=== PATIENT | female | born 1975 | race Caucasian/White ===

== ENCOUNTER 2016-08-22 12:16 | Emergency (ER) | payer MEDICAID ==
[2016-08-22 12:22] VITALS: BP 145/85
--- NOTE | 2016-08-22 12:24 | ER Document Report ---
ED Medical Screen (RME) - General Stated Complaint: LEG PAIN Notes: Patient is a 40-year-old female presents emergency Department complaining of pain in her calf on the right side that radiates to her right hip that started last night. H/o PE, on Coumadin 5mg. Patient states she had a DVT that progressed to be a PE in 2005 in the [facility]. Describing it as a constant jazmín horse. Denies SOB I have greeted and performed a rapid initial assessment of this patient. A comprehensive ED assessment and evaluation of the patient, analysis of test results and completion of the medical decision making process will be conducted by additional ED providers. TRAVEL OUTSIDE OF THE [place] IN LAST 30 DAYS: No - Related Data Allergies/Adverse Reactions: codeine [Codeine] Allergy (Verified 12/23/13 02:16) levofloxacin [From Levaquin] Allergy (Verified 12/23/13 02:16) Urticaria seafood Allergy (Uncoded 12/23/13 02:16) Past Medical History - Social History Family history: Arthritis, CAD, CVA, DM, Hyperlipidemia, Hypertension, Malignancy, Thyroid Disfunction - Past Medical History Cardiac Medical History: Reports: Hx DVT, Hx Hypertension, Hx Pulmonary Embolism Neurological Medical History: Reports: Hx Migraine Endocrine Medical History: Reports: Hx Diabetes Mellitus Type 2 Skin Medical History: Reports Hx Cellulitis, Denies Hx MRSA Psychiatric Medical History: Reports: Hx Depression Past Surgical History: Reports: Hx Cholecystectomy, Hx Genitourinary Surgery - Esure - Immunizations Immunizations up to date: No Hx Diphtheria, Pertussis, Tetanus Vaccination: No
[2016-08-22 13:01] LABS: PROTHROMBIN TIME 12.1 SEC (11.4-15.4)
[2016-08-22] MEDS ORDERED: ACETAMINOPHEN 325 MG TABLET PO ONE (13:23)
[2016-08-22] MEDS ORDERED: MORPHINE SULFATE 10 MG/ML INJ IV ONE (13:40)
[2016-08-22] MEDS ORDERED: ENOXAPARIN SODIUM INJ 120 MG/0.8 ML DISP.SYRIN SUBCUT SCH (16:00)
--- NOTE | 2016-08-22 16:00 | ER Document Report ---
ED General - General Chief Complaint: Leg Pain Stated Complaint: LEG PAIN Time seen by provider: 13:00 Mode of Arrival: Ambulatory Information source: Patient Notes: 40-year-old female who complains about pain to the posterior right calf and thigh while standing last night. She reports a history DVT in that extremity approximately 10 years ago with associated pulmonary embolism is been on Coumadin ever since. He reports this is adjusted at [facility] and she has no other local physician. She reports last INR check was about one month ago. She denies any history of recent travel or immobilization. She denies any injury to this extremity. She denies fever, chills, nausea, vomiting, cough, shortness of breath, chest pain, abdominal pain, or back pain. Physical Exam: General: Alert, appears well. HEENT: Normocephalic. Atraumatic. PERRLA. Extraocular movements intact. Oropharynx clear. Neck: Supple. Non-tender. Respiratory: No respiratory distress. Clear and equal breath sounds bilaterally. Cardiovascular: Regular rate and rhythm. Abdominal: Normal Inspection. Soft, non-tender. No distension. Normal Bowel Sounds. Back: Non-tender. No deformity or step off. Right lower extremity is tender to palpation in the posterior calf and behind the knee no palpable cords are present. There is no bruising or discoloration. She has 2+ dorsalis pedis and posterior tibial pulses. Posterior thigh is only minimally tender to palpation. Left lower extremity unremarkable Neurological: The clear mentation normal Psychological: Normal affect. Normal Mood. Skin: Warm. Dry. Normal color. TRAVEL OUTSIDE OF THE [place] IN LAST 30 DAYS: No - Related Data Allergies/Adverse Reactions: codeine [Codeine] Allergy (Verified 08/22/16 12:19) levofloxacin [From Levaquin] Allergy (Verified 08/22/16 12:19) Urticaria seafood Allergy (Uncoded 08/22/16 12:19) Past Medical History - Social History Smoking Status: Current Every Day Smoker Chew tobacco use (# tins/day): No Frequency of alcohol use: None Drug Abuse: None Family History: Hypertension, Malignancy Patient has suicidal ideation: No Patient has homicidal ideation: No - Past Medical History Cardiac Medical History: Reports: Hx DVT, Hx Hypertension, Hx Pulmonary Embolism Neurological Medical History: Reports: Hx Migraine Endocrine Medical History: Reports: Hx Diabetes Mellitus Type 2 Renal/ Medical History: Denies: Hx Peritoneal Dialysis Skin Medical History: Reports Hx Cellulitis, Denies Hx MRSA Psychiatric Medical History: Reports: Hx Depression Past Surgical History: Reports: Hx Cholecystectomy, Hx Genitourinary Surgery - Esure, Hx Vascular Surgery - PE - Immunizations Immunizations up to date: No Hx Diphtheria, Pertussis, Tetanus Vaccination: No Review of Systems - Review of Systems Constitutional: denies: Chills, Fever EENT: denies: Ear pain, Throat pain Cardiovascular: denies: Chest pain, Dyspnea, Syncope Respiratory: denies: Cough, Short of breath Gastrointestinal: denies: Abdominal pain, Diarrhea, Nausea, Vomiting, Blood in vomit, Black stools, Rectal bleeding Genitourinary: denies: Burning, Dysuria Female Genitourinary: No symptoms reported Musculoskeletal: denies: Back pain Skin: See HPI Hematologic/Lymphatic: See HPI Neurological/Psychological: denies: Weakness, Numbness Physical Exam - Vital signs Vitals: Temp Pulse Resp BP Pulse Ox 98.2 F 99 20 145/85 H 95 08/22/16 12:21 08/22/16 12:21 08/22/16 12:21 08/22/16 12:21 08/22/16 12:21 - Extremities Left calf in cm: 38 Right calf in cm: 39 Course - Re-evaluation Re-evalutation: 08/22/16 15:58 Patient's Doppler studies negative for DVT but she is subtherapeutic on her INR. I discussed with her various options for anticoagulation and recommended stopping Coumadin and beginning Xarelto instead and she is in agreement 08/22/16 16:05 - Vital Signs Vital signs: Temp Pulse Resp BP Pulse Ox 98.2 F 99 20 145/85 H 95 08/22/16 12:21 08/22/16 12:21 08/22/16 12:21 08/22/16 12:21 08/22/16 12:21 08/22/16 15:58 INR subtherapeutic - Diagnostic Test Radiology reviewed: Reports reviewed Discharge - Discharge Clinical Impression: History of DVT (deep vein thrombosis) Calf pain Qualifiers: Laterality: right Qualified Code(s): M79.661 - Pain in right lower leg Condition: Stable Disposition: HOME, SELF-CARE Additional Instructions: DVT Outpatient Treatment DVT or phlebitis is blood clots within the large deep veins. This causes redness, warmth, and tenderness of the involved area. This problem is more likely to affect people who smoke, take estrogen, have had recent surgery, have been immobile, have had previous DVT, or who have serious underlying health conditions. Keep your legs elevated. A heating pad, 20 minutes every two hours, can help with leg pain. For now, keep walking to a minimum. Don't do any physical work, lifting, or exercise. If the doctor has recommended medication for you, it 's important that you take it. You will be started on a blood-thinning medication. Follow-up is important. Your medication needs to be monitored. Call or return at once if you cough blood or vomit blood, pass black or bloody stool, or have any other unusual bleeding. DVT can cause serious complications. The clots can damage the valves in the veins, leading to chronic pain and swelling. If a clot breaks loose and floats upstream, it can stick in the lungs. A clot in the lungs, called pulmonary embolism, can be life-threatening. Call the doctor or return if you develop increasing leg pain and swelling, leg discoloration, fever, chest pain, or shortness of breath. Stopped taking Coumadin. Take Xarelto 15 mg twice a day for 3 weeks and then begin Xarelto 20 mg once a day instead You' still need to follow-up with your doctor for recheck in one week Prescriptions: Rivaroxaban [Xarelto] 20 mg PO QAM #30 tablet Rivaroxaban [Xarelto 15 mg Tablet] 15 mg PO BID #42 tablet Referrals: MINA FOSS NP [Primary Care Provider] - Follow up in 3-5 days
[2016-08-22] MEDS ORDERED: TRAMADOL HCL 50 MG TABLET PO ONE (16:09)
[2016-08-22] MEDS ORDERED: RIVAROXABAN 15 MG TABLET PO ONE (16:09)
== END 2016-08-22 16:15 | disposition home or self-care (01) ==
LOC: ER 12:16
DX: M79.661 Pain in right lower leg (principal); M79.651 Pain in right thigh; E11.9 Type 2 diabetes mellitus without complications; I10 Essential (primary) hypertension; F17.200 Nicotine dependence, unspecified, uncomplicated; Z86.718 Personal history of other venous thrombosis and embolism; Z86.711 Personal history of pulmonary embolism; Z79.01 Long term (current) use of anticoagulants; Z88.5 Allergy status to narcotic agent; Z88.1 Allergy status to other antibiotic agents; Z91.013 Allergy to seafood; Z86.14 Personal history of Methicillin resistant Staphylococcus aureus infection
CPT/HCPCS: 99284; 96374; 36415; 85610; 93971; J2270

== ENCOUNTER → 2017-05-30 | Outpatient (CLI) | payer MEDICAID ==
--- NOTE | 2017-05-30 15:34 | RADIOLOGY REPORT (SQ) ---
EXAM DESCRIPTION: MRI CERVICAL SPINE WITHOUT COMPLETED DATE/TIME: 05/30/2017 2:17 pm REASON FOR STUDY: OTHER CERVICAL DISC DEGENERATION, UNSPEC CERVICAL REGION (M50.30) M50.30 OTHER CE RVICAL DISC DEGENERATION, UNSP CERVICAL REGIO COMPARISON: None. TECHNIQUE: Sagittal and Axial imaging includes T1, T2, STIR and gradient echo sequences. LIMITATIONS: None. FINDINGS: ALIGNMENT: Normal. VERTEBRAE: Intact. BONE MARROW: Normal. No marrow replacement or reactive changes. DISCS: Mild multilevel disc space narrowing. Detailed levels below. HARDWARE: None in the spine. CORD AND BASE OF BRAIN: Normal in size and signal intensity. SOFT TISSUES: No soft tissue masses. C1-C2: No significant spinal stenosis. C2-C3: No significant spinal stenosis or exit foraminal stenosis. C3-C4: No significant spinal stenosis or exit foraminal stenosis. C4-C5: Minimal central protrusion without cord compression or significant central stenosis. Mild for aminal narrowing. C5-C6: Minimal protrusion without cord compression or significant central or foraminal narrowing. C6-C7: Minimal protrusion without evidence of cord compression or significant central or foraminal na rrowing. C7-T1: No significant spinal stenosis or exit foraminal stenosis. UPPER THORACIC: Incompletely imaged. No significant spinal stenosis or exit foraminal stenosis. OTHER: No other significant finding. IMPRESSION: 1. Mild multilevel disc disease but no suggestion of significant cord compression or spi nal stenosis. No spinal malalignment, fracture or bone lesion. TECHNICAL DOCUMENTATION: JOB ID: [id number] [employer]- All Rights Reserved
== END ==
LOC: RAD 13:38
PROVIDERS: ATTEND Physician Assistant
DX: M50.323 Other cervical disc degeneration at C6-C7 level (principal)
CPT/HCPCS: 72141

== ENCOUNTER 2017-07-30 22:01 | Emergency (ER) | payer MEDICAID ==
[2017-07-30] MEDS ORDERED: CEPHALEXIN 500 MG CAPSULE PO ONE (22:57)
[2017-07-30] MEDS ORDERED: LIDOCAINE 1% INJ-PF (10 MG/ML) 30 ML SDV INJ ONE (22:57)
[2017-07-30] MEDS ORDERED: OXYCODONE-ACETAMINOPHEN 5-325 MG TABLET PO ONE (22:57)
--- NOTE | 2017-07-30 22:58 | ER Document Report ---
HPI - HPI Pain Level: 3 Context: left hand lac, tetanus UTd withi one year on coumadiun 5mg last INR check was 1 month ago, prev Pe on Depo - REPRODUCTIVE Reproductive: DENIES: : Past Medical History - Social History Family History: Hypertension, Malignancy - Past Medical History Cardiac Medical History: Reports: Hx DVT, Hx Hypertension, Hx Pulmonary Embolism Neurological Medical History: Reports: Hx Migraine Endocrine Medical History: Reports: Hx Diabetes Mellitus Type 2 Renal/ Medical History: Denies: Hx Peritoneal Dialysis Skin Medical History: Reports Hx Cellulitis, Denies Hx MRSA Psychiatric Medical History: Reports: Hx Depression Past Surgical History: Reports: Hx Cholecystectomy, Hx Genitourinary Surgery - Esure, Hx Vascular Surgery - PE - Immunizations Immunizations up to date: No Hx Diphtheria, Pertussis, Tetanus Vaccination: No Vertical Provider Document - INFECTION CONTROL TRAVEL OUTSIDE OF THE [place] IN LAST 30 DAYS: No - RESPIRATORY O2 Sat by Pulse Oximetry: 98 Course - Vital Signs Vital signs: Temp Pulse Resp BP Pulse Ox 98.3 F 105 H 14 151/103 H 98 07/30/17 22:27 07/30/17 22:27 07/30/17 22:27 07/30/17 22:27 07/30/17 22:27
[2017-07-30] MEDS ORDERED: LIDOCAINE 1%/EPINEPHRINE INJ 20 ML VIAL INJ ONE (23:18)
[2017-07-30] MEDS ORDERED: MIDAZOLAM 2 MG/2 ML INJ IM ONE (23:18)
[2017-07-30] MEDS ORDERED: LIDOCAINE 4%/TETRACAINE 0.5%/EPI 0.18% 5 ML TOPICAL SOLN TOP ONE (23:18)
--- NOTE | 2017-07-30 23:22 | ER Document Report ---
ED General - General Chief Complaint: Hand Injury Stated Complaint: HAND INJURY Time Seen by Provider: 07/30/17 22:54 Notes: Patient is a 41-year-old female with a past medical history of a pulmonary embolus, currently anticoagulated on warfarin who presents after sustaining a laceration to her left hand. Patient states that she was opening a can of food and sustained a flap type laceration over the thenar eminence of the left hand. She is right-hand dominant. She states that she applied direct pressure to the area which has controlled the bleeding. She does note a severe, constant, throbbing pain to the area. She states any movement of the hand worsens the pain. She has not tried anything to improve the pain. She denies any history of similar injury in the past. Her tetanus is up-to-date. TRAVEL OUTSIDE OF THE [place] IN LAST 30 DAYS: No - Related Data Allergies/Adverse Reactions: levofloxacin [From Levaquin] Allergy (Verified 08/22/16 12:19) Urticaria seafood Allergy (Uncoded 08/22/16 12:19) Past Medical History - General Information source: Patient - Social History Smoking Status: Current Every Day Smoker Frequency of alcohol use: None Drug Abuse: None Lives with: Family Family History: Hypertension, Malignancy - Past Medical History Cardiac Medical History: Reports: Hx DVT, Hx Hypertension, Hx Pulmonary Embolism Neurological Medical History: Reports: Hx Migraine Endocrine Medical History: Reports: Hx Diabetes Mellitus Type 2 Renal/ Medical History: Denies: Hx Peritoneal Dialysis Skin Medical History: Reports Hx Cellulitis, Denies Hx MRSA Psychiatric Medical History: Reports: Hx Depression Past Surgical History: Reports: Hx Cholecystectomy, Hx Genitourinary Surgery - Esure, Hx Vascular Surgery - PE - Immunizations Immunizations up to date: No Hx Diphtheria, Pertussis, Tetanus Vaccination: No Review of Systems - Review of Systems Notes: Constitutional: Negative for fever. Eyes: Negative for visual changes. ENT: Negative for facial injury Cardiovascular: Negative for chest injury. Respiratory: Negative for shortness of breath. Gastrointestinal: Negative for abdominal injury. Genitourinary: Negative for genital injury Musculoskeletal: Positive for left hand injury Skin: Positive for laceration/abrasions. Neurological: Negative for head injury. Physical Exam - Vital signs Vitals: Temp Pulse Resp BP Pulse Ox 98.3 F 105 H 14 151/103 H 98 07/30/17 22:27 07/30/17 22:27 07/30/17 22:27 07/30/17 22:27 07/30/17 22:27 Interpretation: Hypertensive, Tachycardic Notes: PHYSICAL EXAMINATION: GENERAL: Well-appearing, well-nourished and in no acute distress. HEAD: Atraumatic, normocephalic. EYES: sclera anicteric, conjunctiva are normal. ENT: Moist mucous membranes. NECK: Normal range of motion LUNGS: Normal work of breathing HEART: 2+ radial pulses bilaterally EXTREMITIES: Full flexion extension against resistance at the DIP, PIP and MCP of all digits of the left hand NEUROLOGICAL: RMU motor and sensory distribution is intact bilaterally. PSYCH: Moderately anxious SKIN: Warm, Dry, normal turgor, there is a 3 cm flap type laceration over the thenar eminence of the left hand Course - Re-evaluation Re-evalutation: 07/30/17 23:21 Patient presents with a flap type laceration to the thenar eminence of the left hand after clinic cutting it on a can. Tetanus is already up-to-date. Patient is on warfarin but the wound is hemostatic at time of assessment. Patient is extremely anxious regarding laceration repair so 2 mg of intramuscular midazolam was administered prior to repair. The wound was anesthetized, cleaned and closed without difficulty. RMU motor and sensory distribution and full flexion extension in all joint spaces of the left hand were intact. At this time will discharge with return precautions and follow-up recommendations. Verbal discharge instructions given a the bedside and opportunity for questions given. Medication warnings reviewed. Patient is in agreement with this plan and has verbalized understanding of return precautions and the need for primary care follow-up in the next 24-72 hours. - Vital Signs Vital signs: Temp Pulse Resp BP Pulse Ox 97.9 F 108 H 14 137/82 H 96 07/31/17 00:50 07/31/17 00:50 07/30/17 22:27 07/31/17 00:50 07/31/17 00:50 Procedures - Laceration/Wound Repair Left Hand Wound length (cm): 3 Wound's Depth, Shape: Flap Laceration pre-procedure: Sterile PPE donned Anesthetic type: 1% Lidocaine w/epi Volume Anesthetic (mLs): 1 Wound explored: Clean Irrigated w/ Saline (mLs): 300 Wound Debrided: Moderate Wound Repaired With: Sutures Suture Size/Type: 5:0 Number of Sutures: 3 Post-procedure wound care: Sterile dressing applied Post-procedure NV exam normal: Yes Complications: No Discharge - Discharge Clinical Impression: Laceration of left hand Qualifiers: Encounter type: initial encounter Foreign body presence: without foreign body Qualified Code(s): S61.412A - Laceration without foreign body of left hand, initial encounter Condition: Good Disposition: HOME, SELF-CARE Additional Instructions: Please return to your primary doctor, the ED, or an urgent care in 7 days for suture removal. Return immediately if you develop spreading redness around the wound, pus from the wound, worsening pain, or a fever of >100.4. Keep the area clean and dry. Wash gently with soap and water twice daily and cover with antibiotic ointment.
[2017-07-31 00:52] VITALS: BP 137/82
== END 2017-07-31 00:54 | disposition home or self-care (01) ==
LOC: ER 22:01
PROC: 0HQGXZZ Repair Left Hand Skin, External Approach (ICD-10-PCS; principal; 2017-07-30)
DX: S61.412A Laceration without foreign body of left hand, initial encounter (principal); Z86.711 Personal history of pulmonary embolism; Z79.01 Long term (current) use of anticoagulants; W26.8XXA Contact with other sharp object(s), not elsewhere classified, initial encounter; F17.200 Nicotine dependence, unspecified, uncomplicated; I10 Essential (primary) hypertension; E11.9 Type 2 diabetes mellitus without complications; Z90.49 Acquired absence of other specified parts of digestive tract
CPT/HCPCS: 99282; 12002; J3490 ×2; J2250

== ENCOUNTER → 2017-12-29 | Outpatient (CLI) | payer MEDICAID ==
--- NOTE | 2017-12-29 21:05 | RADIOLOGY REPORT (SQ) ---
EXAM DESCRIPTION: MRI CERVICAL SPINE WITHOUT COMPLETED DATE/TIME: 12/29/2017 8:38 pm REASON FOR STUDY: M50.30 OTHER CERVICAL DISC DEGENERATION, UNSP CERVICAL REGION M50.30 OTHER CERVIC AL DISC DEGENERATION, UNSP CERVICAL REGIO COMPARISON: 05/30/2017 TECHNIQUE: Sagittal and Axial imaging includes T1, T2, STIR and gradient echo sequences. LIMITATIONS: None. FINDINGS: ALIGNMENT: Reversal of normal cervical lordotic curve. VERTEBRAE: Intact. BONE MARROW: Normal. No marrow replacement or reactive changes. DISCS: Normal. No significant abnormal signal or loss of height. HARDWARE: None in the spine. CORD AND BASE OF BRAIN: Normal in size and signal intensity. SOFT TISSUES: No soft tissue masses. C1-C2: No significant spinal stenosis. C2-C3: No significant spinal stenosis or exit foraminal stenosis. C3-C4: No significant spinal stenosis or exit foraminal stenosis. C4-C5: No significant spinal stenosis or exit foraminal stenosis. Mild disc bulge. C5-C6: No significant spinal stenosis or exit foraminal stenosis. Mild disc bulge. C6-C7: No significant spinal stenosis or exit foraminal stenosis. Mild disc bulge. C7-T1: No significant spinal stenosis or exit foraminal stenosis. UPPER THORACIC: Incompletely imaged. No significant spinal stenosis or exit foraminal stenosis. OTHER: No other significant finding. IMPRESSION: No significant spinal stenosis or exit foraminal stenosis. TECHNICAL DOCUMENTATION: JOB ID: [id number] [employer]- All Rights Reserved Reading location - IP/workstation name: [email or web address]
== END ==
LOC: RAD 20:26
PROVIDERS: ATTEND Physician Assistant
DX: M50.30 Other cervical disc degeneration, unspecified cervical region (principal)
CPT/HCPCS: 72141

== ENCOUNTER → 2018-01-09 | Outpatient (CLI) | payer MEDICAID ==
--- NOTE | 2018-01-10 16:10 | RADIOLOGY REPORT (SQ) ---
EXAM DESCRIPTION: MRI LT UPPER JOINT WITHOUT COMPLETED DATE/TIME: 01/09/2018 9:27 pm REASON FOR STUDY: M54.2 CERVICALGIA M54.2 CERVICALGIA COMPARISON: None. TECHNIQUE: Left shoulder images acquired and stored on PACS. Multiplanar imaging to include fat sens itive sequences such as T1, water sensitive sequences such as FST2/STIR, cartilage sensitive sequence s such as FSPD/gradient-echo sequences. LIMITATIONS: None. FINDINGS: BONE MARROW AND CORTEX: No worrisome bone lesions or marrow replacement. No occult fractur es. JOINT OR BURSAL EFFUSION: No significant joint or bursal fluid. No suggestion of loose bodies. GLENO-HUMERAL ARTICULATION: Normal articulation. No subluxation. No cystic change. No osteophytes or cartilage loss. ACROMION AND AC JOINT: Mild dorsal overgrowth with slight marrow edema. No subacromial compromise evident. ROTATOR CUFF AND INTERVAL: No suggestion of significant cuff tear or tendinosis. No atrophy. LABRUM AND BICEPS LABRAL COMPLEX: No high-grade labral tear identified. Signal in the biceps ancho r suggests relatively low grade fraying. Biceps tendon intact. REMAINDER OF LABRUM AND IGHL : Intact. PERIARTICULAR AND ADJACENT SOFT TISSUES: No masses or abnormal nodes. OTHER: No other significant finding. IMPRESSION: 1. No significant cuff disease. 2. Suspect mild biceps anchor fraying. Biceps tendon i ntact. Higher grade slap lesion not suspected. 3. Mild AC arthropathy. TECHNICAL DOCUMENTATION: JOB ID: [id number] [employer]- All Rights Reserved Reading location - IP/workstation name: [email or web address]
== END ==
LOC: RAD 19:34
PROVIDERS: ATTEND Physician Assistant
DX: M54.2 Cervicalgia (principal)

== ENCOUNTER 2018-03-24 16:41 | Emergency (ER) | payer MEDICAID ==
--- NOTE | 2018-03-24 17:43 | ER Document Report ---
ED Medical Screen (RME) - General Chief Complaint: Breathing Difficulty Stated Complaint: BREATHING DIFFICULTY Time Seen by Provider: 03/24/18 17:33 TRAVEL OUTSIDE OF THE [place] IN LAST 30 DAYS: No - HPI Onset: Other - 42-year-old female presents for evaluation from a urgent care after recheck for bronchitis as she has had a persistent cough over the last several days which is now worsened. She endorses fevers at home to her subjective, as well as wheezing and shortness of breath. She does have a history of pulmonary emboli in the past, diabetes type 2, hypertension, hyperlipidemia, chronic pain. She does have a productive cough. She is continued to smoke during this illness as much as several cigarettes per day. - Related Data Allergies/Adverse Reactions: levofloxacin [From Levaquin] Allergy (Verified 08/22/16 12:19) Urticaria seafood Allergy (Uncoded 08/22/16 12:19) Past Medical History - Social History Family history: Arthritis, CAD, CVA, DM, Hyperlipidemia, Hypertension, Malignancy, Thyroid Disfunction - Past Medical History Cardiac Medical History: Reports: Hx DVT, Hx Hypertension, Hx Pulmonary Embolism Pulmonary Medical History: Reports: Hx Pneumonia Neurological Medical History: Reports: Hx Migraine Endocrine Medical History: Reports: Hx Diabetes Mellitus Type 2 Renal/ Medical History: Denies: Hx Peritoneal Dialysis Skin Medical History: Reports Hx Cellulitis, Denies Hx MRSA Psychiatric Medical History: Reports: Hx Depression Past Surgical History: Reports: Hx Cholecystectomy, Hx Genitourinary Surgery - Esure, Hx Vascular Surgery - PE - Immunizations Immunizations up to date: No Hx Diphtheria, Pertussis, Tetanus Vaccination: No Physical Exam - Vital signs Vitals: Temp Pulse Resp BP Pulse Ox 98.8 F 115 H 16 122/72 94 03/24/18 16:46 03/24/18 16:46 03/24/18 16:46 03/24/18 16:46 03/24/18 16:46 Course - Re-evaluation Re-evalutation: 03/24/18 17:43 I performed a rapid medical screening examination on this patient will defer further imaging, tests, disposition to next provider. Has a history of pulmonary embolus in the past, does have symptoms suggestive of possible underlying pneumonia atypical or otherwise. We will plan for initiation of workup including troponin chest x-ray CBC and CMP. Patient will undergo further investigation through emergency department. - Vital Signs Vital signs: Temp Pulse Resp BP Pulse Ox 98.8 F 115 H 16 122/72 94 03/24/18 16:46 03/24/18 16:46 03/24/18 16:46 03/24/18 16:46 03/24/18 16:46 Doctor's Discharge - Discharge Referrals: JANETTE PRESTON PA [Primary Care Provider] - Follow up as needed
[2018-03-24 18:23] LABS: ABSOLUTE BASOPHILS # (AUTO) 0.1 10^3/uL (0.0-0.2); ABSOLUTE LYMPHOCYTES (AUTO) 2.4 10^3/uL (0.5-4.7); ABSOLUTE MONOCYTES (AUTO) 0.5 10^3/uL (0.1-1.4); ABSOLUTE NEUT (AUTO) 15.4 10^3/uL (1.7-8.2); BASOPHILS % (AUTO) 0.7 % (0-2); HEMATOCRIT 39.7 % (36.0-47.0); HEMOGLOBIN 13.7 g/dL (12.0-15.5); MEAN CORPUSCULAR HEMOGLOBIN 31.7 pg (27.0-33.4); MEAN CORPUSCULAR HGB CONC 34.4 g/dL (32.0-36.0); MEAN CORPUSCULAR VOLUME 92 fl (80-97); MONOCYTES % (AUTO) 2.5 % (3-13); PLATELET COUNT 437 10^3/uL (150-450); RED CELL DISTRIBUTION WIDTH 14.6 % (11.5-14.0); SEGMENTED NEUTROPHILS % (AUTO) 83.8 % (42-78); TOTAL CELLS COUNTED % (AUTO) 100 %; WHITE BLOOD COUNT 18.3 10^3/uL (4.0-10.5)
[2018-03-24 18:32] LABS: PROTHROMBIN TIME 22.7 SEC (11.4-15.4)
--- NOTE | 2018-03-24 18:38 | RADIOLOGY REPORT (SQ) ---
EXAM DESCRIPTION: CHEST 2 VIEWS COMPLETED DATE/TIME: 03/24/2018 6:31 pm REASON FOR STUDY: concern for pneumonia COMPARISON: 08/13/2015 EXAM PARAMETERS: NUMBER OF VIEWS: two views TECHNIQUE: Digital Frontal and Lateral radiographic views of the chest acquired. RADIATION DOSE: NA LIMITATIONS: none FINDINGS: LUNGS AND PLEURA: No opacities, masses or pneumothorax. No pleural effusion. MEDIASTINUM AND HILAR STRUCTURES: No masses or contour abnormalities. HEART AND VASCULAR STRUCTURES: Heart normal size. No evidence for failure. BONES: No acute findings. HARDWARE: None in the chest. OTHER: No other significant finding. IMPRESSION: NO ACUTE RADIOGRAPHIC FINDING IN THE CHEST. TECHNICAL DOCUMENTATION: JOB ID: [id number] [employer]- All Rights Reserved Reading location - IP/workstation name: [email or web address]
[2018-03-24 18:40] LABS: ALANINE AMINOTRANSFERASE 25 U/L (9-52); ALBUMIN 3.7 g/dL (3.5-5.0); ALKALINE PHOSPHATASE 83 U/L (38-126); ANION GAP 15 (5-19); ASPARTATE AMINO TRANSFERASE 17 U/L (14-36); BILIRUBIN,DIRECT 0.3 mg/dL (0.0-0.4); BILIRUBIN,TOTAL 0.3 mg/dL (0.2-1.3); BLOOD UREA NITROGEN 14 mg/dL (7-20); CALCIUM 9.5 mg/dL (8.4-10.2); CARBON DIOXIDE 22 mmol/L (22-30); CHLORIDE 99 mmol/L (98-107); GLUCOSE 285 mg/dL (75-110); POTASSIUM 4.3 mmol/L (3.6-5.0); SODIUM 135.9 mmol/L (137-145); TOTAL PROTEIN 7.2 g/dL (6.3-8.2)
[2018-03-24] MEDS ORDERED: IPRATROPIUM/ALBUTEROL 0.5-2.5 MG/3 ML AMPUL NEB ONE ×2 (18:41→18:46)
[2018-03-24] MEDS ORDERED: NORMAL SALINE 1000 ML 1,000 ML IV ONE (18:41)
[2018-03-24] MEDS ORDERED: CEFTRIAXONE 1 GM/D5W RTU 1 GM/50 ML RTUPB IV ONE (18:43)
--- NOTE | 2018-03-24 18:45 | ER Document Report ---
ED General - General Chief Complaint: Breathing Difficulty Stated Complaint: BREATHING DIFFICULTY Time Seen by Provider: 03/24/18 17:33 Mode of Arrival: Ambulatory Information source: Patient Notes: 42-year-old female with hypertension, type 2 diabetes, depression, migraine headaches presents from urgent care with concern for pneumonia and significantly elevated glucose of 468. Patient states that for 1 week she has had a persistent productive cough. She admits to subjective fevers at home. Patient has associated chest discomfort and shortness of breath with coughing. Patient reports that she was recently diagnosed with a urinary tract infection and placed on Macrobid and prednisone for bronchitis. Patient denies nausea, vomiting, abdominal pain, back pain, dysuria, hematuria. Patient is currently on Coumadin for previous PE. TRAVEL OUTSIDE OF THE [place] IN LAST 30 DAYS: No - HPI Onset: Other Onset/Duration: Persistent Quality of pain: Achy, Burning Associated symptoms: Body/muscle aches, Chest pain, Productive cough, Fever, Shortness of breath. denies: Diarrhea, Nausea, Vomiting Exacerbated by: Walking, Coughing, Deep breathing Relieved by: Remaining still Similar symptoms previously: Yes Recently seen / treated by doctor: Yes - Related Data Allergies/Adverse Reactions: levofloxacin [From Levaquin] Allergy (Verified 08/22/16 12:19) Urticaria seafood Allergy (Uncoded 08/22/16 12:19) Past Medical History - General Information source: Patient - Social History Smoking Status: Current Every Day Smoker Cigarette use (# per day): Yes - 15 Smoking Education Provided: Yes - Smoking cessation counseling was provided for 4 minutes at the bedside Frequency of alcohol use: None Drug Abuse: None Lives with: Family Family History: Hypertension, Malignancy Patient has suicidal ideation: No Patient has homicidal ideation: No - Past Medical History Cardiac Medical History: Reports: Hx DVT, Hx Hypertension, Hx Pulmonary Embolism Pulmonary Medical History: Reports: Hx Pneumonia Neurological Medical History: Reports: Hx Migraine Endocrine Medical History: Reports: Hx Diabetes Mellitus Type 2 Renal/ Medical History: Denies: Hx Peritoneal Dialysis Skin Medical History: Reports Hx Cellulitis, Denies Hx MRSA Psychiatric Medical History: Reports: Hx Depression Past Surgical History: Reports: Hx Cholecystectomy, Hx Genitourinary Surgery - Esure, Hx Vascular Surgery - PE - Immunizations Immunizations up to date: No Hx Diphtheria, Pertussis, Tetanus Vaccination: No Review of Systems - Review of Systems Constitutional: Fever, Malaise EENT: denies: Blurred vision Cardiovascular: Chest pain - With coughing only Respiratory: Cough, Short of breath, Wheezing Gastrointestinal: denies: Abdominal pain, Diarrhea, Nausea Genitourinary: denies: Dysuria, Hematuria Female Genitourinary: No symptoms reported Musculoskeletal: denies: Back pain Skin: denies: Rash Hematologic/Lymphatic: No symptoms reported Neurological/Psychological: Headaches Physical Exam - Vital signs Vitals: Temp Pulse Resp BP Pulse Ox 98.8 F 115 H 16 122/72 94 03/24/18 16:46 03/24/18 16:46 03/24/18 16:46 03/24/18 16:46 03/24/18 16:46 Interpretation: Tachycardic - Notes Notes: PHYSICAL EXAMINATION: GENERAL: Obese, well-appearing, well-nourished and in no acute distress. HEAD: Atraumatic, normocephalic. EYES: Pupils equal round and reactive to light, extraocular movements intact, conjunctiva are normal. ENT: Nares patent, oropharynx clear without exudates. Moist mucous membranes. NECK: Normal range of motion, supple without lymphadenopathy LUNGS: Coarse breath sounds in the right lower lung field. No accessory muscle use. Patient is able to speak in full sentences. No hypoxia. No wheezes rales or rhonchi. HEART: Tachycardic, regular rhythm without murmurs ABDOMEN: Soft, nontender, nondistended abdomen. No guarding, no rebound. No masses appreciated. Female : deferred Musculoskeletal: Normal range of motion, no pitting or edema. No cyanosis. NEUROLOGICAL: Cranial nerves grossly intact. Normal speech, normal gait. Normal sensory, motor exams PSYCH: Normal mood, normal affect. SKIN: Warm, Dry, normal turgor, no rashes or lesions noted. Course - Re-evaluation Re-evalutation: Laboratory 03/24/18 03/24/18 03/24/18 18:00 18:00 18:00 WBC 18.3 H RBC 4.30 Hgb 13.7 Hct 39.7 MCV 92 MCH 31.7 MCHC 34.4 RDW 14.6 H Plt Count 437 Seg Neutrophils % 83.8 H Lymphocytes % 13.0 Monocytes % 2.5 L Eosinophils % 0.0 Basophils % 0.7 Absolute Neutrophils 15.4 H Absolute Lymphocytes 2.4 Absolute Monocytes 0.5 Absolute Eosinophils 0.0 Absolute Basophils 0.1 PT INR D-Dimer Sodium 135.9 L Potassium 4.3 Chloride 99 Carbon Dioxide 22 Anion Gap 15 BUN 14 Creatinine 0.62 Est GFR ( Amer) > 60 Est GFR (Non-Af Amer) > 60 Glucose 285 H POC Glucose Calcium 9.5 Total Bilirubin 0.3 Direct Bilirubin 0.3 Neonat Total Bilirubin Not Reportable Neonat Direct Bilirubin Not Reportable Neonat Indirect Bili Not Reportable AST 17 ALT 25 Alkaline Phosphatase 83 Troponin I < 0.012 Total Protein 7.2 Albumin 3.7 03/24/18 03/24/18 03/24/18 18:00 18:00 18:18 WBC RBC Hgb Hct MCV MCH MCHC RDW Plt Count Seg Neutrophils % Lymphocytes % Monocytes % Eosinophils % Basophils % Absolute Neutrophils Absolute Lymphocytes Absolute Monocytes Absolute Eosinophils Absolute Basophils PT 22.7 H INR 1.90 D-Dimer < 0.27 Sodium Potassium Chloride Carbon Dioxide Anion Gap BUN Creatinine Est GFR ( Amer) Est GFR (Non-Af Amer) Glucose POC Glucose 308 H Calcium Total Bilirubin Direct Bilirubin Neonat Total Bilirubin Neonat Direct Bilirubin Neonat Indirect Bili AST ALT Alkaline Phosphatase Troponin I Total Protein Albumin Chest X-Ray 03/24/18 17:41 IMPRESSION: NO ACUTE RADIOGRAPHIC FINDING IN THE CHEST. 03/25/18 02:18 42-year-old female with hypertension, type 2 diabetes, depression, migraine headaches presents from urgent care with concern for pneumonia and significantly elevated glucose of 468. Patient states that for 1 week she has had a persistent productive cough. She admits to subjective fevers at home. Patient has associated chest discomfort and shortness of breath with coughing. Patient reports that she was recently diagnosed with a urinary tract infection and placed on Macrobid and prednisone for bronchitis. Patient does have a leukocytosis likely secondary to her recent prednisone use. Chest x-ray is without evidence of pneumonia. CMP does show elevated glucose without evidence of DKA. D-dimer and cardiac enzymes within normal limits. Patient did receive breathing treatments, ceftriaxone, IV fluids. On reevaluation patient is resting comfortably and reports an improvement of her shortness of breath. Patient will be discharged home on doxycycline. Patient was evaluated and treated as appropriate for the patient's presenting symptoms and complaint, with consideration of any critical or life threatening conditions that may be associated with their obtained history and exam as noted above. All results were discussed with patient. Patient provided the opportunity to ask questions, and express concerns. Patient was educated on treatments based on their presumed diagnosis as noted above. At this time we will discharge the patient with return precautions and follow-up recommendations. Verbal discharge instructions given a the bedside. Medication warnings reviewed. Patient is in agreement with this plan and has verbalized understanding of return precautions. After careful consideration I feel that that patient can be safely discharged from the emergency department, they were advised to followup with a primary care physician in 2-3 days. Dictation on this chart was performed using voice recognition software and may result in unintended grammatical, spelling, syntax or errors. 03/25/18 02:24 03/25/18 02:25 - Vital Signs Vital signs: Temp Pulse Resp BP Pulse Ox 98.8 F 74 18 112/66 94 03/24/18 16:46 03/24/18 20:38 03/24/18 20:38 03/24/18 20:38 03/24/18 20:38 - Laboratory Result Diagrams: 03/24/18 18:00 03/24/18 18:00 Laboratory results interpreted by me: 03/24/18 03/24/18 03/24/18 18:00 18:00 18:00 WBC 18.3 H RDW 14.6 H Seg Neutrophils % 83.8 H Monocytes % 2.5 L Absolute Neutrophils 15.4 H PT 22.7 H Sodium 135.9 L Glucose 285 H POC Glucose 03/24/18 18:18 WBC RDW Seg Neutrophils % Monocytes % Absolute Neutrophils PT Sodium Glucose POC Glucose 308 H - Diagnostic Test Radiology reviewed: Image reviewed, Reports reviewed - EKG Interpretation by Me EKG shows normal: Sinus rhythm Rate: Tachycardia Rhythm: NSR When compared to previous EKG there are: Previous EKG unavailable Discharge - Discharge Clinical Impression: Bronchitis, Cough Hyperglycemia due to type 2 diabetes mellitus Qualifiers: Diabetes mellitus shelter insulin use: unspecified shelter insulin use status Qualified Code(s): E11.65 - Type 2 diabetes mellitus with hyperglycemia Condition: Good Disposition: HOME, SELF-CARE Instructions: Bronchitis ([facility]), Bronchitis With Bronchospasm (Wheezing) ([facility]), Control of Diabetes During Illness ([facility]), Hyperglycemia ([facility]) Additional Instructions: You were seen for symptoms most consistent with bronchitis. This can take up to 12 weeks to fully resolve. This is generally due to a viral infection. Please follow-up with your primary doctor in the next 2-3 days. Return if you develop worsening cough, vomiting, fever >100.4, pass out, begin coughing blood, or have any other symptoms that are concerning to you. Please use the medications prescribed today as directed. Prescriptions: Doxycycline Hyclate 100 mg PO BID #14 capsule Forms: Smoking Cessation Education Referrals: JANETTE PRESTON PA [Primary Care Provider] - Follow up as needed
--- NOTE | 2018-03-24 19:51 | EKG REPORT ---
SEVERITY:- OTHERWISE NORMAL ECG - SINUS TACHYCARDIA BORDERLINE LEFT AXIS DEVIATION : Confirmed by: Ivonne Mcdonnell MD 24-Mar-2018 19:51:07
[2018-03-24] MEDS ORDERED: DOXYCYCLINE HYCLATE 100 MG TABLET PO ONE (20:15)
[2018-03-24 20:40] VITALS: BP 112/66
== END 2018-03-24 20:38 | disposition home or self-care (01) ==
LOC: ER 16:41
DX: E11.65 Type 2 diabetes mellitus with hyperglycemia (principal); R05 Cough; J40 Bronchitis, not specified as acute or chronic; I10 Essential (primary) hypertension; R50.9 Fever, unspecified; R53.81 Other malaise; R07.89 Other chest pain; R06.02 Shortness of breath; R51 Headache; R00.0 Tachycardia, unspecified; D72.829 Elevated white blood cell count, unspecified; F17.210 Nicotine dependence, cigarettes, uncomplicated; Z71.6 Tobacco abuse counseling; Z88.1 Allergy status to other antibiotic agents; Z91.013 Allergy to seafood; Z87.01 Personal history of pneumonia (recurrent); Z86.718 Personal history of other venous thrombosis and embolism; Z86.711 Personal history of pulmonary embolism
CPT/HCPCS: 93005; 94640; 99285; 96361; 96365; 36415; 82962; 85025; 85610; 80053; 84484; 85379; 71046; 93010; J3490; J7030; J0696; J7620

== ENCOUNTER 2018-04-28 09:49 | Emergency (ER) | payer MEDICAID | END 2018-04-28 10:45 | disposition left against medical advice (07) | LOC: ER 09:49 | DX: Z53.21 Procedure and treatment not carried out due to patient leaving prior to being seen by health care provider (principal) ==

== ENCOUNTER 2018-04-28 12:06 | Emergency (ER) | payer MEDICAID ==
[2018-04-28] MEDS ORDERED: ASPIRIN 81 MG TABLET, CHEWABLE PO ONE (12:11)
[2018-04-28 12:32] LABS: ABSOLUTE BASOPHILS # (AUTO) 0.3 10^3/uL (0.0-0.2); ABSOLUTE EOSINOPHILS # (AUTO) 0.1 10^3/uL (0.0-0.6); ABSOLUTE LYMPHOCYTES (AUTO) 3.9 10^3/uL (0.5-4.7); ABSOLUTE MONOCYTES (AUTO) 0.5 10^3/uL (0.1-1.4); ABSOLUTE NEUT (AUTO) 11.8 10^3/uL (1.7-8.2); BASOPHILS % (AUTO) 1.6 % (0-2); EOSINOPHILS % (AUTO) 0.8 % (0-6); HEMATOCRIT 40.3 % (36.0-47.0); LYMPHOCYTES % (AUTO) 23.6 % (13-45); MEAN CORPUSCULAR HEMOGLOBIN 31.9 pg (27.0-33.4); MEAN CORPUSCULAR HGB CONC 34.7 g/dL (32.0-36.0); MEAN CORPUSCULAR VOLUME 92 fl (80-97); MONOCYTES % (AUTO) 3.3 % (3-13); PLATELET COUNT 381 10^3/uL (150-450); RED BLOOD COUNT 4.38 10^6/uL (3.72-5.28); RED CELL DISTRIBUTION WIDTH 14.1 % (11.5-14.0); SEGMENTED NEUTROPHILS % (AUTO) 70.7 % (42-78); TOTAL CELLS COUNTED % (AUTO) 100 %; WHITE BLOOD COUNT 16.7 10^3/uL (4.0-10.5)
--- NOTE | 2018-04-28 12:37 | RADIOLOGY REPORT (SQ) ---
EXAM DESCRIPTION: CHEST SINGLE VIEW COMPLETED DATE/TIME: 04/28/2018 12:28 pm REASON FOR STUDY: bed 8 cp COMPARISON: TWO-VIEW CHEST 03/24/2018 EXAM PARAMETERS: NUMBER OF VIEWS: One view. TECHNIQUE: Single frontal radiographic view of the chest acquired. RADIATION DOSE: NA LIMITATIONS: None. FINDINGS: LUNGS AND PLEURA: No opacities, masses or pneumothorax. No pleural effusion. MEDIASTINUM AND HILAR STRUCTURES: No masses. Contour normal. HEART AND VASCULAR STRUCTURES: Heart normal in size. Normal vasculature. BONES: No acute findings. HARDWARE: None in the chest. OTHER: No other significant finding. IMPRESSION: NO ACUTE RADIOGRAPHIC FINDING IN THE CHEST. TECHNICAL DOCUMENTATION: JOB ID: [id number] [employer]- All Rights Reserved Reading location - IP/workstation name: [email or web address]
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
[2018-04-28] MEDS ORDERED: MORPHINE SULFATE 10 MG/ML INJ IV ONE (12:45)
[2018-04-28 12:57] LABS: ALANINE AMINOTRANSFERASE 32 U/L (9-52); ALBUMIN 3.6 g/dL (3.5-5.0); ALKALINE PHOSPHATASE 91 U/L (38-126); ANION GAP 15 (5-19); ASPARTATE AMINO TRANSFERASE 28 U/L (14-36); BILIRUBIN,DIRECT 0.4 mg/dL (0.0-0.4); BILIRUBIN,TOTAL 0.4 mg/dL (0.2-1.3); BLOOD UREA NITROGEN 12 mg/dL (7-20); CALCIUM 9.4 mg/dL (8.4-10.2); CARBON DIOXIDE 20 mmol/L (22-30); CHLORIDE 100 mmol/L (98-107); CREATINE KINASE 59 U/L (30-135); GLUCOSE 205 mg/dL (75-110); POTASSIUM 4.5 mmol/L (3.6-5.0); SODIUM 135.1 mmol/L (137-145)
[2018-04-28 13:22] LABS: CREATINE KINASE MB 0.58 ng/mL (<4.55)
[2018-04-28 13:24] LABS: TROPONIN I < 0.012 ng/mL
[2018-04-28 13:37] LABS: INTERNATIONAL RATION (INR) 1.05; PROTHROMBIN TIME 14.3 SEC (11.4-15.4)
[2018-04-28 13:40] LABS: D-DIMER 0.36 ug/mL (0.00-0.50)
[2018-04-28 15:22] VITALS: BP 109/82
--- NOTE | 2018-04-28 15:32 | RADIOLOGY REPORT (SQ) ---
EXAM DESCRIPTION: VENOUS UNILATERAL UPPER COMPLETED DATE/TIME: 04/28/2018 3:10 pm REASON FOR STUDY: Lt UE pain, h/o DVT COMPARISON: 10/16/2014 TECHNIQUE: Dynamic and static delvlale scale and color images acquired of the left arm venous system. Se lected spectral images acquired with additional compression and augmentation maneuvers. The contralat eral subclavian vein and internal jugular vein were also imaged. Images stored on PACS. LIMITATIONS: None. FINDINGS: INTERNAL JUGULAR VEIN: Normal phasicity, compression, augmentation. No visualized echogeni c material on delvalle scale. No defects on color images. Comparison opposite side normal. SUBCLAVIAN VEIN: Normal compression, augmentation. No visualized echogenic material on delvalle scale. No defects on color images. AXILLARY VEIN: Normal compression, augmentation. No visualized echogenic material on delvalle scale. No d efects on color images. BRACHIAL VEIN: Normal compression, augmentation. No visualized echogenic material on delvalle scale. No d efects on color images. BASILIC VEIN: Normal compression, augmentation. No visualized echogenic material on delvalle scale. No de fects on color images. CEPHALIC VEIN: Normal compression, augmentation. No visualized echogenic material on delvalle scale. No d efects on color images. OTHER: No other significant finding. CONTRALATERAL SUBCLAVIAN VEIN AND INTERNAL JUGULAR VEIN: Normal phasicity, compression and augmentation. No visualized echogenic material on delvalle scale. No de fects on color images. IMPRESSION: NO EVIDENCE DVT OR SVT LEFT ARM. TECHNICAL DOCUMENTATION: JOB ID: [id number] [employer]- All Rights Reserved Reading location - IP/workstation name: [email or web address]
--- NOTE | 2018-04-29 07:13 | EKG REPORT ---
SEVERITY:- BORDERLINE ECG - SINUS TACHYCARDIA BORDERLINE LEFT AXIS DEVIATION BORDERLINE T WAVE ABNORMALITIES : Confirmed by: Andreia Weaver 29-Apr-2018 07:12:04
== END 2018-04-28 15:47 | disposition home or self-care (01) ==
LOC: ER 12:06
DX: G89.29 Other chronic pain (principal); M25.512 Pain in left shoulder; M79.632 Pain in left forearm; M79.642 Pain in left hand; I10 Essential (primary) hypertension; E11.9 Type 2 diabetes mellitus without complications; I26.99 Other pulmonary embolism without acute cor pulmonale; I82.409 Acute embolism and thrombosis of unspecified deep veins of unspecified lower extremity; Z79.01 Long term (current) use of anticoagulants; Z88.1 Allergy status to other antibiotic agents
CPT/HCPCS: 93005; 99284; 96374; 36415; 82553; 82550; 85025; 85610; 85730; 80053; 84484; 85379; 93971; 71045; 93010; J2270

== ENCOUNTER 2018-10-09 13:41 | Emergency (ER) | payer MEDICAID ==
[2018-10-09] MEDS ORDERED: HYDROCODONE/ACETAMINOPHEN 10-325 MG TABLET PO ONE (17:08)
[2018-10-09] MEDS ORDERED: PENICILLIN V POTASSIUM 500 MG TABLET PO ONE (17:08)
--- NOTE | 2018-10-09 17:12 | ER Document Report ---
HPI - HPI Patient complains to provider of: Tooth pain Time Seen by Provider: 10/09/18 16:55 Pain Level: 3 Context: Patient is a 42-year-old female presents to the emergency department for left upper tooth pain for the last 3 days. Patient states she feels as though her wisdom teeth are "pushing through." States she called her dentist who told her to come to the emergency room for need for antibiotics before any dental work to be done. Patient's denying any fever or vomiting. Past medical history: Diabetes, pulmonary embolus, hypertension, hyperlipidemia Medication: Xarelto Allergies: Seafood, levofloxacin - REPRODUCTIVE Reproductive: DENIES: : Past Medical History - General Information source: Patient - Social History Smoking Status: Current Every Day Smoker Family History: Hypertension, Malignancy Patient has suicidal ideation: No Patient has homicidal ideation: No - Past Medical History Cardiac Medical History: Reports: Hx DVT, Hx Hypertension, Hx Pulmonary Embolism Pulmonary Medical History: Reports: Hx Pneumonia Neurological Medical History: Reports: Hx Migraine Endocrine Medical History: Reports: Hx Diabetes Mellitus Type 2 Renal/ Medical History: Denies: Hx Peritoneal Dialysis Skin Medical History: Reports Hx Cellulitis, Denies Hx MRSA Psychiatric Medical History: Reports: Hx Depression Past Surgical History: Reports: Hx Cholecystectomy, Hx Genitourinary Surgery - Esure, Hx Vascular Surgery - PE - Immunizations Immunizations up to date: No Hx Diphtheria, Pertussis, Tetanus Vaccination: No Vertical Provider Document - CONSTITUTIONAL Agree With Documented VS: Yes Notes: GENERAL: Alert, interacts well. No acute distress. HEAD: Normocephalic, atraumatic. EYES: Pupils equal, round, and reactive to light. Extraocular movements intact. ENT: Oral mucosa moist, tongue midline. Tooth in question is #16. There does appear to be some minor gum erythema no area of fluctuance or induration noted. Obvious dental decay noted, other dentition within well repair. No Darío's angina NECK: Full range of motion. Supple. Trachea midline.no lymphadenopathy appreciated. LUNGS: Clear to auscultation bilaterally, no wheezes, rales, or rhonchi. No respiratory distress. HEART: Regular rate and rhythm. No murmur ABDOMEN: Soft, non-tender. Non-distended. Bowel sounds present in all 4 quadrants. EXTREMITIES: Moves all 4 extremities spontaneously. No edema, normal radial and dorsalis pedis pulses bilaterally. No cyanosis. BACK: no cervical, thoracic, lumbar midline tenderness. No saddle anesthesia, normal distal neurovascular exam. NEUROLOGICAL: Alert and oriented x3. Normal speech. cranial nerves II through XII grossly intact PSYCH: Normal affect, normal mood. SKIN: Warm, dry, normal turgor. No rashes or lesions noted. - INFECTION CONTROL TRAVEL OUTSIDE OF THE [place] IN LAST 30 DAYS: No Course - Re-evaluation Re-evalutation: 10/09/18 17:10 Discussed use of antibiotics and at home pain medication. Discussed continued close follow-up with the dentist. Patient stable for discharge This medical record was dictated with voice recognizing software. There may be grammatical, syntax errors that are unintended. - Vital Signs Vital signs: Temp Pulse Resp BP Pulse Ox 98.4 F 106 H 18 119/69 94 10/09/18 14:47 10/09/18 14:47 10/09/18 14:47 10/09/18 14:47 10/09/18 14:47 Discharge - Discharge Clinical Impression: Tooth decay, Toothache Condition: Stable Disposition: HOME, SELF-CARE Instructions: Penicillin V K ([facility]), Toothache ([facility]), [facility] Additional Instructions: As we discussed you have been seen and treated in the emergency department for tooth pain. Please make sure you are taking antibiotics as prescribed. Please take [id number] Tylenol Motrin for generalized pain. His follow-up with your dentist in the next 24 to 48 hours. Phone numbers for [facility] will be provided in this packet should you not have a dentist. Prescriptions: Penicillin V Potassium [Penicillin Vk 500 mg Tablet] 500 mg PO BID #20 tablet Referrals: NATALIE NG FNP-C [Primary Care Provider] - Follow up as needed
[2018-10-09 17:33] VITALS: BP 133/78
== END 2018-10-09 17:33 | disposition home or self-care (01) ==
LOC: ER 13:41
DX: K02.9 Dental caries, unspecified (principal); K08.89 Other specified disorders of teeth and supporting structures; F17.200 Nicotine dependence, unspecified, uncomplicated; I10 Essential (primary) hypertension; E11.9 Type 2 diabetes mellitus without complications
CPT/HCPCS: 99282; J3490

== ENCOUNTER 2018-11-30 20:49 | Emergency (ER) | payer MEDICAID | END 2018-11-30 21:26 | disposition left against medical advice (07) | LOC: ER 20:49 | DX: Z53.21 Procedure and treatment not carried out due to patient leaving prior to being seen by health care provider (principal) ==

== ENCOUNTER 2018-11-30 22:26 | Emergency (ER) | payer MEDICAID ==
[2018-11-30 22:36] VITALS: BP 124/75
--- NOTE | 2018-12-01 00:08 | ER Document Report ---
ED Medical Screen (RME) - General Chief Complaint: High Blood Sugar Stated Complaint: BLOOD SUGAR PROBLEM Time Seen by Provider: 12/01/18 00:04 Primary Care Provider: NATALIE NG FNP-C [Primary Care Provider] - Follow up as needed Mode of Arrival: Ambulatory Information source: Patient Notes: 42-year-old male presented to ED for complaint of elevated blood sugar. She has diabetes type 2 and is on multiple diabetic medications. She states she is been taking her medications as prescribed and has not eaten all day and is only been drinking water. She states she just took her Accu-Chek with her machine and it was 347. She states she does not feel right. She states that she has had to get IV fluids and insulin drip before when her sugar was too high after her primary care doctor gave her steroids. She states she has not been on any steroids recently. She states her urine has a very strong odor and she is been tired. She states she does not have any pain or discomfort with urination but she does have low back pain. Patient is alert oriented respirations regular and unlabored speaking in full sentences walking with a even steady gait. Accu-Chek in the emergency room is 350. I have greeted and performed a rapid initial assessment of this patient. A comprehensive ED assessment and evaluation of the patient, analysis of test results and completion of medical decision making process will be conducted by an additional ED providers. Dictation of this chart was performed using voice recognition software; therefore, there may be some unintended grammatical errors. TRAVEL OUTSIDE OF THE [place] IN LAST 30 DAYS: No - Related Data Allergies/Adverse Reactions: levofloxacin [From Levaquin] Allergy (Verified 10/09/18 13:46) Urticaria seafood Allergy (Uncoded 10/09/18 13:46) Past Medical History - Social History Chew tobacco use (# tins/day): No Frequency of alcohol use: None Drug Abuse: None Family history: Arthritis, CAD, CVA, DM, Hyperlipidemia, Hypertension, Malignancy, Thyroid Disfunction - Past Medical History Cardiac Medical History: Reports: Hx DVT, Hx Hypertension, Hx Pulmonary Embolism Pulmonary Medical History: Reports: Hx Pneumonia Neurological Medical History: Reports: Hx Migraine Endocrine Medical History: Reports: Hx Diabetes Mellitus Type 2 Renal/ Medical History: Denies: Hx Peritoneal Dialysis Skin Medical History: Reports Hx Cellulitis, Denies Hx MRSA Psychiatric Medical History: Reports: Hx Depression Past Surgical History: Reports: Hx Cholecystectomy, Hx Genitourinary Surgery - E sure, Hx Vascular Surgery - PE - Immunizations Immunizations up to date: No Hx Diphtheria, Pertussis, Tetanus Vaccination: No Physical Exam - Vital signs Vitals: Temp Pulse Resp BP Pulse Ox 98.0 F 118 H 16 124/75 96 11/30/18 22:35 11/30/18 22:35 11/30/18 22:35 11/30/18 22:35 11/30/18 22:35 Course - Vital Signs Vital signs: Temp Pulse Resp BP Pulse Ox 98.0 F 108 H 16 124/75 96 11/30/18 22:35 12/01/18 00:02 11/30/18 22:35 11/30/18 22:35 12/01/18 00:02 Doctor's Discharge - Discharge Referrals: NATALIE NG FNP-C [Primary Care Provider] - Follow up as needed
== END 2018-12-01 04:24 | disposition left against medical advice (07) ==
LOC: ER 22:26
DX: E11.65 Type 2 diabetes mellitus with hyperglycemia (principal); Z79.899 Other long term (current) drug therapy; R53.83 Other fatigue; R39.89 Other symptoms and signs involving the genitourinary system; M54.5 Low back pain; I10 Essential (primary) hypertension; Z88.1 Allergy status to other antibiotic agents
CPT/HCPCS: 82962; 99281

== ENCOUNTER 2019-02-04 18:05 | Emergency (ER) | payer MEDICAID ==
--- NOTE | 2019-02-04 18:38 | ER Document Report ---
ED Medical Screen (RME) - General Chief Complaint: Leg Pain Stated Complaint: FOOT PAIN Time Seen by Provider: 02/04/19 18:35 Primary Care Provider: NATALIE NG FNP-C [Primary Care Provider] - Follow up as needed Mode of Arrival: Wheelchair Information source: Patient Notes: 43-year-old female presents to ED for complaint of right leg pain x3 days. She denies any injury to this leg but states that the leg hurts from her calf behind the knee and up to her thigh. She does have a history of a DVT and PE in 2005. She is on Xarelto still. She has a history of high blood pressure cholesterol diabetes with neuropathy. She did has had no recent surgeries. She does smoke a pack a day. Patient is alert oriented respirations regular and unlabored speaking in full sentences. I have greeted and performed a rapid initial assessment of this patient. A comprehensive ED assessment and evaluation of the patient, analysis of test results and completion of medical decision making process will be conducted by an additional ED providers. TRAVEL OUTSIDE OF THE [place] IN LAST 30 DAYS: No - Related Data Allergies/Adverse Reactions: levofloxacin [From Levaquin] Allergy (Verified 02/04/19 18:08) Urticaria seafood Allergy (Uncoded 02/04/19 18:08) Past Medical History - Social History Frequency of alcohol use: None Drug Abuse: None Family history: Arthritis, CAD, CVA, DM, Hyperlipidemia, Hypertension, Malignancy, Thyroid Disfunction - Past Medical History Cardiac Medical History: Reports: Hx DVT, Hx Hypertension, Hx Pulmonary Embolism Pulmonary Medical History: Reports: Hx Pneumonia Neurological Medical History: Reports: Hx Migraine Endocrine Medical History: Reports: Hx Diabetes Mellitus Type 2 Renal/ Medical History: Denies: Hx Peritoneal Dialysis Skin Medical History: Reports Hx Cellulitis, Denies Hx MRSA Psychiatric Medical History: Reports: Hx Depression Past Surgical History: Reports: Hx Cholecystectomy, Hx Genitourinary Surgery - Esure, Hx Vascular Surgery - PE - Immunizations Immunizations up to date: No Hx Diphtheria, Pertussis, Tetanus Vaccination: No Physical Exam - Vital signs Vitals: Temp Pulse Resp BP Pulse Ox 98.9 F 105 H 17 124/80 94 02/04/19 18:12 02/04/19 18:12 02/04/19 18:12 02/04/19 18:12 02/04/19 18:12 Course - Vital Signs Vital signs: Temp Pulse Resp BP Pulse Ox 98.9 F 105 H 17 124/80 94 02/04/19 18:12 02/04/19 18:12 02/04/19 18:12 02/04/19 18:12 02/04/19 18:12 Doctor's Discharge - Discharge Referrals: NATALIE NG, FIELD LABORATORY OPERATOR-C [Primary Care Provider] - Follow up as needed
[2019-02-04] MEDS ORDERED: ACETAMINOPHEN 325 MG TABLET PO ONE (18:49)
[2019-02-04 19:17] LABS: ABSOLUTE BASOPHILS # (AUTO) 0.1 10^3/uL (0.0-0.2); ABSOLUTE EOSINOPHILS # (AUTO) 0.1 10^3/uL (0.0-0.6); ABSOLUTE LYMPHOCYTES (AUTO) 3.2 10^3/uL (0.5-4.7); ABSOLUTE MONOCYTES (AUTO) 0.6 10^3/uL (0.1-1.4); ABSOLUTE NEUT (AUTO) 13.3 10^3/uL (1.7-8.2); BASOPHILS % (AUTO) 0.7 % (0-2); EOSINOPHILS % (AUTO) 0.7 % (0-6); HEMATOCRIT 42.9 % (36.0-47.0); HEMOGLOBIN 14.6 g/dL (12.0-15.5); LYMPHOCYTES % (AUTO) 18.3 % (13-45); MEAN CORPUSCULAR HEMOGLOBIN 31.3 pg (27.0-33.4); MEAN CORPUSCULAR HGB CONC 34.2 g/dL (32.0-36.0); MEAN CORPUSCULAR VOLUME 92 fl (80-97); MONOCYTES % (AUTO) 3.7 % (3-13); PLATELET COUNT 339 10^3/uL (150-450); RED BLOOD COUNT 4.68 10^6/uL (3.72-5.28); RED CELL DISTRIBUTION WIDTH 14.4 % (11.5-14.0); SEGMENTED NEUTROPHILS % (AUTO) 76.6 % (42-78); TOTAL CELLS COUNTED % (AUTO) 100 %; WHITE BLOOD COUNT 17.4 10^3/uL (4.0-10.5)
[2019-02-04 19:24] LABS: INTERNATIONAL RATION (INR) 1.17; PROTHROMBIN TIME 14.9 SEC (11.4-15.4)
[2019-02-04 19:25] LABS: PARTIAL THROMBOPLASTIN TIME 31.4 SEC (23.5-35.8)
--- NOTE | 2019-02-04 19:27 | RADIOLOGY REPORT (SQ) ---
EXAM DESCRIPTION: KNEE RIGHT 4 VIEWS COMPLETED DATE/TIME: 02/04/2019 7:08 pm REASON FOR STUDY: Posterior right knee pain no fall history DVT COMPARISON: None. EXAM PARAMETERS: NUMBER OF VIEWS: Four views. TECHNIQUE: AP, lateral and oblique radiographic images acquired of the right knee. LIMITATIONS: None. FINDINGS: MINERALIZATION: Normal. BONES: No acute fracture or dislocation. No worrisome bone lesions. JOINTS: No effusion. SOFT TISSUES: No significant soft tissue swelling. No radiopaque foreign body. OTHER: No other significant finding. IMPRESSION: NO FRACTURE. TECHNICAL DOCUMENTATION: JOB ID: [id number] [place]-72 2010 [employer]- All Rights Reserved Reading location - IP/workstation name: [email or web address]
[2019-02-04 19:33] LABS: ALKALINE PHOSPHATASE 118 U/L (38-126); ANION GAP 13 (5-19); ASPARTATE AMINO TRANSFERASE 39 U/L (14-36); BILIRUBIN,DIRECT 0.3 mg/dL (0.0-0.4); BILIRUBIN,TOTAL 0.3 mg/dL (0.2-1.3); BLOOD UREA NITROGEN 10 mg/dL (7-20); CALCIUM 9.2 mg/dL (8.4-10.2); CARBON DIOXIDE 28 mmol/L (22-30); CHLORIDE 97 mmol/L (98-107); GLUCOSE 169 mg/dL (75-110); POTASSIUM 3.5 mmol/L (3.6-5.0); TOTAL PROTEIN 7.3 g/dL (6.3-8.2)
--- NOTE | 2019-02-04 22:08 | RADIOLOGY REPORT (SQ) ---
EXAM DESCRIPTION: US EXTREMITY VEINS UNILATERAL COMPLETED DATE/TME: 02/04/2019 18:35 CLINICAL HISTORY: 43 years, Female, Right calf and thigh posterior pain 3 days hx dvt COMPARISON: None. TECHNIQUE: Transverse longitudinal sonographic images of the right lower extremity deep venous system LIMITATIONS: None. FINDINGS: No visible areas of thrombus. Normal compression and augmentation throughout. Doppler images are unremarkable IMPRESSION: Negative exam copyright 2010 [employer]- All Rights Reserved
--- NOTE | 2019-02-04 22:32 | ER Document Report ---
Entered by TIESHA HOLM SCRIBE 02/04/192112 Acting as scribe for:CYNTHIA GARSIA MD ED Extremity Problem, Lower - General Chief Complaint: Leg Pain Stated Complaint: FOOT PAIN Time Seen by Provider: 02/04/19 18:35 Primary Care Provider: NATALIE NG FNP-C [Primary Care Provider] - Follow up as needed Mode of Arrival: Wheelchair Information source: Patient Notes: Patient is a 43-year-old female who presents to the emergency department today with complaints of "problems with my feet". Patient is on pain management for diabetic neuropathy. Patient states she has been having this right-sided foot pain for quite some time however today the pain seemed to radiate up to her right hip which is new for her. Patient is on Xarelto because of prior DVT. TRAVEL OUTSIDE OF THE [place] IN LAST 30 DAYS: No - Related Data Allergies/Adverse Reactions: levofloxacin [From Levaquin] Allergy (Verified 02/04/19 18:08) Urticaria seafood Allergy (Uncoded 02/04/19 18:08) Past Medical History - General Information source: Patient - Social History Smoking Status: Current Every Day Smoker Cigarette use (# per day): Yes Frequency of alcohol use: None Drug Abuse: None Lives with: Family Family History: Reviewed & Not Pertinent, Hypertension, Malignancy Patient has suicidal ideation: No Patient has homicidal ideation: No - Past Medical History Cardiac Medical History: Reports: Hx DVT, Hx Hypertension, Hx Pulmonary Embolism Pulmonary Medical History: Reports: Hx Pneumonia Neurological Medical History: Reports: Hx Migraine Endocrine Medical History: Reports: Hx Diabetes Mellitus Type 2 Skin Medical History: Reports Hx Cellulitis Psychiatric Medical History: Reports: Hx Depression Past Surgical History: Reports: Hx Cholecystectomy, Hx Genitourinary Surgery - Esure, Hx Vascular Surgery - PE - Immunizations Immunizations up to date: No Hx Diphtheria, Pertussis, Tetanus Vaccination: No Review of Systems - Review of Systems Constitutional: No symptoms reported EENT: No symptoms reported Cardiovascular: No symptoms reported Respiratory: No symptoms reported Gastrointestinal: No symptoms reported Genitourinary: No symptoms reported Female Genitourinary: No symptoms reported Musculoskeletal: See HPI, Joint pain - right foot Skin: No symptoms reported Hematologic/Lymphatic: No symptoms reported Neurological/Psychological: No symptoms reported -: Yes All other systems reviewed and negative Physical Exam - Vital signs Vitals: Temp Pulse Resp BP Pulse Ox 98.9 F 105 H 17 124/80 94 02/04/19 18:12 02/04/19 18:12 02/04/19 18:12 02/04/19 18:12 02/04/19 18:12 - Notes Notes: Physical Exam: General: Alert, appears well. HEENT: Normocephalic. Atraumatic. PERRL. Extraocular movements intact. Oropharynx clear. Neck: Supple. Non-tender. Respiratory: No respiratory distress. Rhonchi with forced cough consistent with smoking history. Cardiovascular: Regular rate and rhythm. Abdominal: Normal Inspection. Non-tender. No distension. Normal Bowel Sounds. Back: No gross abnormalities. Extremities: Moves all four extremities. Upper extremities: Normal inspection. Normal ROM. Lower extremities: Tenderness with palpation over the right popliteal fossa, this area is not tender when the knee is flexed, increasing tenderness with palpation while knee is extended, hyper extension of right knee causes pain in this area without palpation. Mild right lateral thigh tenderness with palpation. Calves are non tender and symmetric in size. There is no lower extremity edema. Neurological: Normal cognition. AAOx4. Normal speech. Psychological: Normal affect. Normal Mood. Skin: Warm. Dry. Normal color. Course - Re-evaluation Re-evalutation: 02/04/19 23:46 The patient has an unexplained leukocytosis. She does not have any signs or symptoms suggesting infectious process. The urine is clear. The patient has clearly reproducible pain when the right popliteal muscle region is stretched. It is not painful when it is relaxed. The right proximal lateral thigh tenderness is most likely due to altered walking mechanics due to the pain behind the knee. I did phone counselor the patient about her A1c of 9.2, her already significant diabetic peripheral neuropathy, and her risks for renal injury and retinopathy if she does not get better control of her diabetes. Using a knee immobilizer would probably make the region hurt worse because it would keep it straight, when relief comes and knee flexion. She will try to limit walking, keep her knee flexes much as possible, and use a cane. She reports she has to go to her son's football game tomorrow night, although she was counseled against doing this. - Vital Signs Vital signs: Temp Pulse Resp BP Pulse Ox 98.6 F 95 20 126/78 H 95 02/04/19 22:15 02/04/19 22:15 02/04/19 22:15 02/04/19 22:15 02/04/19 22:15 - Laboratory Result Diagrams: 02/04/19 18:40 02/04/19 18:40 Laboratory results interpreted by me: 02/04/19 02/04/19 02/04/19 18:40 18:40 18:40 WBC 17.4 H RDW 14.4 H Absolute Neuts (auto) 13.3 H Potassium 3.5 L Chloride 97 L Glucose 169 H Hemoglobin A1c % 9.2 H AST 39 H Urine Protein Urine Ketones Urine Bilirubin Urine Urobilinogen Ur Leukocyte Esterase 02/04/19 22:40 WBC RDW Absolute Neuts (auto) Potassium Chloride Glucose Hemoglobin A1c % AST Urine Protein 30 H Urine Ketones TRACE H Urine Bilirubin SMALL H Urine Urobilinogen 2.0 H Ur Leukocyte Esterase TRACE H - Diagnostic Test Radiology reviewed: Image reviewed, Reports reviewed - Right knee x-ray is negative for fracture. Right lower extremity venous Doppler is negative for DVT. Discharge - Discharge Clinical Impression: Popliteal fossa strain, Poorly controlled diabetes mellitus Leukocytosis Qualifiers: Leukocytosis type: unspecified Qualified Code(s): D72.829 - Elevated white blood cell count, unspecified Condition: Stable Disposition: HOME, SELF-CARE Additional Instructions: Your right leg pain seems to be coming from a strain in the muscles behind the right knee. You should try to limit walking to only what is necessary. Use a cane to help provide additional support. Your lab work did show an elevated white blood cell count, but there was no obvious explanation for this in your evaluation. Follow-up with your primary care provider if not improving by next week. RETURN TO THE EMERGENCY ROOM IF ANY NEW OR WORSENING SYMPTOMS. Referrals: NATALIE NG FNP-C [Primary Care Provider] - Follow up as needed Print Language: Kinyarwanda Scribe Attestation: 02/04/19 22:48 I personally performed the services described in the documentation, reviewed and edited the documentation which was dictated to the scribe in my presence, and it accurately records my words and actions. I personally performed the services described in the documentation, reviewed and edited the documentation which was dictated to the scribe in my presence, and it accurately records my words and actions.
[2019-02-04] MEDS ORDERED: HYDROCODONE/ACETAMINOPHEN 5-325 MG TABLET PO ONE (22:56)
[2019-02-04 22:58] LABS: APPEARANCE,URINE CLOUDY; BILIRUBIN,URINE SMALL (NEGATIVE); COLOR,URINE AMBER; GLUCOSE, URINE NEGATIVE (NEGATIVE); KETONES,URINE TRACE mg/dL (NEGATIVE); LEUKOCYTE ESTERASE,URINE TRACE (NEGATIVE); NITRITE,URINE NEGATIVE (NEGATIVE); PROTEIN,URINE 30 mg/dL (NEGATIVE); URINE SPECIFIC GRAVITY 1.024
[2019-02-04 23:57] VITALS: BP 126/72
== END 2019-02-04 23:57 | disposition home or self-care (01) ==
LOC: ER 18:05
DX: S86.811A Strain of other muscle(s) and tendon(s) at lower leg level, right leg, initial encounter (principal); M79.604 Pain in right leg; D72.829 Elevated white blood cell count, unspecified; X58.XXXA Exposure to other specified factors, initial encounter; E11.9 Type 2 diabetes mellitus without complications; I10 Essential (primary) hypertension; Z86.718 Personal history of other venous thrombosis and embolism; Z86.711 Personal history of pulmonary embolism; Z90.49 Acquired absence of other specified parts of digestive tract; F17.210 Nicotine dependence, cigarettes, uncomplicated
CPT/HCPCS: 99284; 36415; 85025; 85610; 85730; 80053; 81001; 83036; 85379; 93971; 73564; J3490

== ENCOUNTER 2019-05-30 21:19 | Emergency (ER) | payer MEDICAID ==
[2019-05-30] MEDS ORDERED: HEPARIN SODIUM,PORCINE/D5W 25,000 UNIT/250 ML RTUINJ IV PRN (21:54)
[2019-05-30] MEDS ORDERED: HEPARIN SOD (PORCINE) 1,000 UNIT/ML 10 ML VIAL IV ONE (21:54)
[2019-05-30] MEDS ORDERED: CLOPIDOGREL BISULFATE 75 MG TABLET PO ONE (21:56)
[2019-05-30] MEDS ORDERED: ASPIRIN 325 MG TABLET PO ONE (21:57)
[2019-05-30] MEDS ORDERED: MORPHINE SULFATE 10 MG/ML INJ IV ONE (22:05)
--- NOTE | 2019-05-30 22:08 | ER Document Report ---
ED Extremity Problem, Lower - General Chief Complaint: Leg Pain Stated Complaint: LEG PAIN Time Seen by Provider: 05/30/19 21:45 Primary Care Provider: NATALIE NG FNP-C [Primary Care Provider] - Follow up as needed Mode of Arrival: Medic Information source: Patient Notes: This 43-year-old woman presents to the emergency department with a complaint of right lower extremity pain which began at approximately 3 PM this afternoon 05/30/2019. She has a history of peripheral vascular disease and a prior history of ischemic limb flow. She is a smoker. She has a 9/10 pain involving the right lower extremity, a mottled and cool distal leg and foot with no pulses noted. I have explained to the patient that this is a limb threatening circumstance and that we will be working expeditiously to get her to a facility with vascular intervention capability. The patient notes that she has had a previous vascular procedure. [place], [place]. TRAVEL OUTSIDE OF THE [place] IN LAST 30 DAYS: No - Related Data Allergies/Adverse Reactions: levofloxacin [From Levaquin] Allergy (Verified 02/04/19 18:08) Urticaria seafood Allergy (Uncoded 02/04/19 18:08) Past Medical History - Social History Smoking Status: Current Every Day Smoker Family History: Reviewed & Not Pertinent, Hypertension, Malignancy - Past Medical History Cardiac Medical History: Reports: Hx DVT, Hx Hypertension, Hx Pulmonary Embolism Pulmonary Medical History: Reports: Hx Pneumonia Neurological Medical History: Reports: Hx Migraine Endocrine Medical History: Reports: Hx Diabetes Mellitus Type 2 Renal/ Medical History: Denies: Hx Peritoneal Dialysis Skin Medical History: Reports Hx Cellulitis, Denies Hx MRSA Psychiatric Medical History: Reports: Hx Depression Past Surgical History: Reports: Hx Cholecystectomy, Hx Genitourinary Surgery - Esure, Hx Vascular Surgery - PE - Immunizations Immunizations up to date: No Hx Diphtheria, Pertussis, Tetanus Vaccination: No Review of Systems - Review of Systems Notes: Constitutional: Negative for fever. HENT: Negative for sore throat. Eyes: Negative for visual changes. Cardiovascular: Negative for chest pain. Respiratory: Negative for shortness of breath. Gastrointestinal: Negative for abdominal pain, vomiting or diarrhea. Genitourinary: Negative for dysuria. Musculoskeletal: + Right lower extremity pain Skin: Negative for rash. Neurological: Negative for headaches, weakness or numbness. 10 point ROS negative except as marked above and in HPI. Physical Exam - Vital signs Vitals: Pulse Ox 96 05/30/19 21:38 - Notes Notes: PHYSICAL EXAMINATION: Physical Exam: General: Obese female in moderate distress secondary to right lower extremity pain HEENT: NC/AT, pupils equal round and reactive to light, MM moist,nares clear, Neck: supple, no adenopathy, no masses. Lungs: clear, no wheezing, no rales no rhonchi CVS: Regular rate and rhythm no murmur gallop or rub Abdomen: Soft active nontender, no masses, no hepatosplenomegaly Ext: Right lower extremity, mottling, blue discoloration of the toes, cool foot without pulses, inability to Doppler pulses. Neuro: Alert and responsive, moving all 4 extremities on command, cranial nerves intact. Skin: Intact no open lesions, no rash Course - Re-evaluation Re-evalutation: 05/30/19 22:10 Vascular surgery at [facility] in [place] Emergency Department was contacted, Dr. Villavicencio has excepted the patient in transport with the expectation that she will go to the operating suite. I explained to the patient that she has been accepted in transport and that she should expect to have a procedure performed, she is encouraged to not eat or drink prior to transport. Patient acknowledges understanding of this plan and is in agreement. 05/30/19 22:12 The recommendation of the vascular surgeon was a heparin bolus and drip with 150 mg of Plavix, 325 mg of aspirin and transport as soon as possible. - Vital Signs Vital signs: Temp Pulse Resp BP Pulse Ox 98.2 F 95 19 143/117 H 98 05/30/19 22:25 05/30/19 21:46 05/30/19 22:24 05/30/19 22:25 05/30/19 22:25 - Laboratory Result Diagrams: 05/30/19 21:50 05/30/19 21:50 Laboratory results interpreted by me: 05/30/19 05/30/19 05/30/19 21:50 21:50 21:50 WBC 14.6 H RDW 14.9 H APTT 23.4 L Sodium 135.9 L Glucose 215 H AST 57 H Alkaline Phosphatase 148 H Critical Care Note - Critical Care Note Total time excluding time spent on procedures (mins): 30 - Critical care time spent obtaining history from patient or surrogate, discussions with consultants, development of treatment plan with patient or surrogate, evaluation of patient's response to treatment, examination of patient, ordering and performing treatments and interventions, ordering and review of laboratory studies, re- evaluation of patient's condition, ordering and review of radiographic studies and review of old charts Discharge - Discharge Clinical Impression: Ischemia of right lower extremity, Peripheral vascular disease of lower extremity Condition: Serious [facility]position: [facility] Referrals: NATALIE NG FNP-C [Primary Care Provider] - Follow up as needed
[2019-05-30 22:09] LABS: HEMATOCRIT 39.7 % (36.0-47.0); HEMOGLOBIN 13.5 g/dL (12.0-15.5); MEAN CORPUSCULAR HEMOGLOBIN 31.5 pg (27.0-33.4); MEAN CORPUSCULAR HGB CONC 33.9 g/dL (32.0-36.0); MEAN CORPUSCULAR VOLUME 93 fl (80-97); PLATELET COUNT 284 10^3/uL (150-450); RED BLOOD COUNT 4.29 10^6/uL (3.72-5.28); RED CELL DISTRIBUTION WIDTH 14.9 % (11.5-14.0); WHITE BLOOD COUNT 14.6 10^3/uL (4.0-10.5)
[2019-05-30 22:17] LABS: ALBUMIN 3.5 g/dL (3.5-5.0); ALKALINE PHOSPHATASE 148 U/L (38-126); ANION GAP 11 (5-19); ASPARTATE AMINO TRANSFERASE 57 U/L (14-36); BILIRUBIN,DIRECT 0.2 mg/dL (0.0-0.4); BILIRUBIN,TOTAL 0.3 mg/dL (0.2-1.3); BLOOD UREA NITROGEN 10 mg/dL (7-20); CALCIUM 9.2 mg/dL (8.4-10.2); CARBON DIOXIDE 26 mmol/L (22-30); CHLORIDE 99 mmol/L (98-107); GLUCOSE 215 mg/dL (75-110); POTASSIUM 4.5 mmol/L (3.6-5.0)
[2019-05-30 22:19] LABS: INTERNATIONAL RATION (INR) 0.92; PARTIAL THROMBOPLASTIN TIME 23.4 SEC (23.5-35.8); PROTHROMBIN TIME 12.3 SEC (11.4-15.4)
[2019-05-30 22:34] VITALS: BP 143/117
== END 2019-05-30 22:25 | disposition short-term general hospital (02) ==
LOC: ER 21:19
DX: I99.8 Other disorder of circulatory system (principal); I73.9 Peripheral vascular disease, unspecified; M79.604 Pain in right leg; F17.200 Nicotine dependence, unspecified, uncomplicated; E11.9 Type 2 diabetes mellitus without complications; I10 Essential (primary) hypertension
CPT/HCPCS: 99291; 96374; 96375; 36415; 85027; 85610; 85730; 80053; J1644 ×2; J2270; J3490

== ENCOUNTER 2019-07-18 14:50 | Emergency (ER) | payer MEDICAID ==
--- NOTE | 2019-07-18 15:21 | ER Document Report ---
ED General - General Chief Complaint: Foot Pain Stated Complaint: FOOT PAIN Primary Care Provider: NATALIE NG FNP-C [Primary Care Provider] - Follow up as needed Mode of Arrival: Ambulatory Information source: Patient Notes: 43-year-old female arrives by POV with chief complaint of right lower extremity pain and numbness for the last 3 months. She is followed by Dr. Merchant in [facility] vascular surgeon. Reports she has had similar symptoms since 2005. Patient denies any trauma to her right leg and denies any fever chills but does admit to feeling cold in her right foot. Severe pain began late last night and early this morning noticed that she had more discoloration and bluish discoloration to her right foot ; does use Lovenox injections into her abdomen. She has endomorphic body habitus. Has bruises where the Lovenox injections in her abdomen have occurred with palpable nodules. The ecchymoses are approximately 3 cm diameter each. By 1714 just the hydrology technician advised me that the patient has no blood flow below the right knee. She did find a popliteal vessel that was small that was patent. I then spoke with [facility] where her physician is located and spoke with [facility] person and he will attempt to reach Dr. Merchant. Failed hospital day on last visit per Rodrigo CHENEY who works with . Rodrigo reports on her admission that she left AMA and should be admitted under Dr. Martin hospitalist. This is via Lev at the transfer center. Dr. Adam is going to be the vascular surgeon probation officer. Dr. Adam excepted the patient at 182 via telephone and transfer center. In the meantime I have spoken with Dr. Evans at [place] and they advised transfer to [facility] as well.Lesley and spoke with [facility] at 182 TRAVEL OUTSIDE OF THE U.[place]. IN LAST 30 DAYS: No - HPI Onset: This morning Onset/Duration: Gradual Quality of pain: Achy Severity: Severe Pain Level: 5 Associated symptoms: Weakness, Other - Right foot cold and mottled and pain and numbness to the distal one third of her right leg - Related Data Allergies/Adverse Reactions: levofloxacin [From Levaquin] Allergy (Verified 07/18/19 15:21) Urticaria seafood Allergy (Uncoded 07/18/19 15:21) Past Medical History - General Information source: Patient - Social History Smoking Status: Current Every Day Smoker Cigarette use (# per day): Yes - 1 pack/day for 20 years Chew tobacco use (# tins/day): No Smoking Education Provided: Yes Drug Abuse: None Lives with: Family Family History: Reviewed & Not Pertinent, Hypertension, Malignancy - Past Medical History Cardiac Medical History: Reports: Hx DVT, Hx Hypertension, Hx Pulmonary Embolism Pulmonary Medical History: Reports: Hx Pneumonia Neurological Medical History: Reports: Hx Migraine Endocrine Medical History: Reports: Hx Diabetes Mellitus Type 2 Renal/ Medical History: Denies: Hx Peritoneal Dialysis Skin Medical History: Reports Hx Cellulitis, Denies Hx MRSA Psychiatric Medical History: Reports: Hx Depression Past Surgical History: Reports: Hx Cholecystectomy, Hx Genitourinary Surgery - Esure, Hx Vascular Surgery - PE - Immunizations Immunizations up to date: No Hx Diphtheria, Pertussis, Tetanus Vaccination: No Review of Systems - Review of Systems Constitutional: See HPI, Malaise, Weakness EENT: No symptoms reported Cardiovascular: No symptoms reported Respiratory: No symptoms reported Gastrointestinal: No symptoms reported Genitourinary: No symptoms reported Female Genitourinary: No symptoms reported Musculoskeletal: See HPI, Joint pain, Joint swelling, Muscle stiffness, Other - Is to right foot and ankle to palpation without pulses noted on arrival Skin: See HPI, Change in color, Other - Mottled skin appearance to the distal two thirds of the right lower extremity Hematologic/Lymphatic: No symptoms reported Neurological/Psychological: No symptoms reported Physical Exam - Vital signs Vitals: Temp Pulse Resp BP Pulse Ox 98.1 F 104 H 20 148/92 H 95 07/18/19 15:09 07/18/19 15:09 07/18/19 15:09 07/18/19 15:09 07/18/19 15:09 Interpretation: Hypertensive, Tachycardic - HEENT Head: Normocephalic Eyes: Normal Conjunctiva: Normal Cornea: Normal Extraocular movements intact: Yes Eyelashes: Normal Pupils: PERRL Nasal: Normal Mouth/Lips: Normal Pharynx: Normal Neck: Normal - Respiratory Respiratory status: No respiratory distress Chest status: Nontender Breath sounds: Normal Chest palpation: Normal - Cardiovascular Rhythm: Regular Heart sounds: Normal auscultation Murmur: No Friction rub: No Dalton's crunch: No - Abdominal Inspection: Normal Distension: No distension Bowel sounds: Normal Tenderness: Nontender - Back Back: Normal - Extremities General upper extremity: Normal inspection General lower extremity: Normal inspection - Left foot and left lower extremity only. Right lower extremity with mottling as per HPI and cool to touch for dorsalis pedis and toes Course - Vital Signs Vital signs: Temp Pulse Resp BP Pulse Ox 98.1 F 104 H 20 148/92 H 95 07/18/19 15:09 07/18/19 15:09 07/18/19 15:09 07/18/19 15:09 07/18/19 15:09 - Laboratory Result Diagrams: 07/18/19 16:10 07/18/19 16:10 Laboratory results interpreted by me: 07/18/19 07/18/19 07/18/19 16:10 16:10 16:37 WBC 12.2 H RDW 17.1 H Absolute Neuts (auto) 8.7 H ABG pO2 ABG HCO3 ABG Total CO2 ABG O2 Saturation Sodium 133.6 L Chloride 97 L Creatinine 0.46 L Glucose 313 H Alkaline Phosphatase 293 H Albumin 3.3 L Urine Protein 30 H Urine Glucose (UA) >=500 H Urine Nitrite POSITIVE H Ur Leukocyte Esterase SMALL H 07/18/19 17:25 WBC RDW Absolute Neuts (auto) ABG pO2 67.3 L ABG HCO3 25.7 H ABG Total CO2 27.0 H ABG O2 Saturation 92.9 L Sodium Chloride Creatinine Glucose Alkaline Phosphatase Albumin Urine Protein Urine Glucose (UA) Urine Nitrite Ur Leukocyte Esterase - Diagnostic Test Radiology reviewed: Reports reviewed Critical Care Note - Critical Care Note Total time excluding time spent on procedures (mins): 90 Comments: After multiple telephone conversations the patient was accepted at [facility] telephone via telephone Discharge - Discharge Clinical Impression: Barens's disease, Ischemic neuropathy of right foot, Ischemic pain of right foot Condition: Fair Disposition: [facility] Additional Instructions: For this patient to [facility] with Dr. Adam vascular surgeon attending Referrals: NATALIE NG FNP-C [Primary Care Provider] - Follow up as needed
[2019-07-18] MEDS ORDERED: NITROGLYCERIN 2% OINTMENT 1 GM PACKET TP ONE (15:28)
[2019-07-18] MEDS ORDERED: NORMAL SALINE 1000 ML 1,000 ML IV ONE (15:29)
[2019-07-18] MEDS ORDERED: PENTOXIFYLLINE 400 MG TABLET.SA PO ONE (15:30)
[2019-07-18] MEDS ORDERED: DEXTROSE 5%-WATER 250 ML with NITROPRUSSIDE SODIUM 50 MG IV PRN ×2 (15:42)
[2019-07-18 16:25] LABS: ABSOLUTE BASOPHILS # (AUTO) 0.2 10^3/uL (0.0-0.2); ABSOLUTE EOSINOPHILS # (AUTO) 0.2 10^3/uL (0.0-0.6); ABSOLUTE LYMPHOCYTES (AUTO) 2.7 10^3/uL (0.5-4.7); ABSOLUTE MONOCYTES (AUTO) 0.4 10^3/uL (0.1-1.4); ABSOLUTE NEUT (AUTO) 8.7 10^3/uL (1.7-8.2); BASOPHILS % (AUTO) 1.3 % (0-2); EOSINOPHILS % (AUTO) 1.8 % (0-6); HEMATOCRIT 36.6 % (36.0-47.0); HEMOGLOBIN 12.2 g/dL (12.0-15.5); MEAN CORPUSCULAR HEMOGLOBIN 29.2 pg (27.0-33.4); MEAN CORPUSCULAR HGB CONC 33.4 g/dL (32.0-36.0); MEAN CORPUSCULAR VOLUME 87 fl (80-97); MONOCYTES % (AUTO) 3.6 % (3-13); PLATELET COUNT 388 10^3/uL (150-450); RED BLOOD COUNT 4.18 10^6/uL (3.72-5.28); RED CELL DISTRIBUTION WIDTH 17.1 % (11.5-14.0); SEGMENTED NEUTROPHILS % (AUTO) 71.3 % (42-78); TOTAL CELLS COUNTED % (AUTO) 100 %; WHITE BLOOD COUNT 12.2 10^3/uL (4.0-10.5)
[2019-07-18 16:36] LABS: ALBUMIN 3.3 g/dL (3.5-5.0); ALKALINE PHOSPHATASE 293 U/L (38-126); ANION GAP 11 (5-19); ASPARTATE AMINO TRANSFERASE 26 U/L (14-36); BILIRUBIN,DIRECT 0.4 mg/dL (0.0-0.4); BILIRUBIN,TOTAL 0.4 mg/dL (0.2-1.3); BLOOD UREA NITROGEN 8 mg/dL (7-20); CARBON DIOXIDE 26 mmol/L (22-30); CHLORIDE 97 mmol/L (98-107); GLUCOSE 313 mg/dL (75-110); POTASSIUM 4.4 mmol/L (3.6-5.0); TOTAL PROTEIN 7.2 g/dL (6.3-8.2)
[2019-07-18] MEDS ORDERED: KETOROLAC TROMETHAMINE INJ/PF 30 MG/1 ML SDV IV ONE (16:44)
[2019-07-18 16:48] LABS: CREATINE KINASE MB 0.34 ng/mL (<4.55)
[2019-07-18 16:49] LABS: TROPONIN I < 0.012 ng/mL
[2019-07-18] MEDS: HYDROMORPHONE HCL INJ/PF 2 MG/ML AMPULE IV PRN ×2 (16:55→19:26)
[2019-07-18 16:56] LABS: INTERNATIONAL RATION (INR) 0.99; PROTHROMBIN TIME 13.1 SEC (11.4-15.4)
[2019-07-18 17:03] LABS: APPEARANCE,URINE SLIGHTLY-CLOUDY; BILIRUBIN,URINE NEGATIVE (NEGATIVE); COLOR,URINE YELLOW; GLUCOSE, URINE >=500 mg/dL (NEGATIVE); KETONES,URINE NEGATIVE (NEGATIVE); LEUKOCYTE ESTERASE,URINE SMALL (NEGATIVE); NITRITE,URINE POSITIVE (NEGATIVE); PROTEIN,URINE 30 mg/dL (NEGATIVE); URINE SPECIFIC GRAVITY 1.027; UROBILINOGEN,URINE NEGATIVE mg/dL (<2.0)
[2019-07-18 17:15] LABS: URINE AMPHETAMINES SCREEN NEGATIVE; URINE BARBITURATES SCREEN NEGATIVE; URINE BENZODIAZEPINES SCREEN NEGATIVE; URINE COCAINE SCREEN NEGATIVE; URINE MARIJUANA (THC) SCREEN NEGATIVE; URINE METHADONE SCREEN NEGATIVE; URINE PHENCYCLIDINE SCREEN NEGATIVE
[2019-07-18] MEDS ORDERED: MORPHINE SULFATE 10 MG/ML INJ IV ONE ×2 (17:43→21:05)
[2019-07-18] MEDS ORDERED: NITROPRUSSIDE SODIUM 2 ML IV ONE (17:47)
[2019-07-18 17:49] LABS: ARTERIAL BLOOD BASE EXCESS 0.2 mmol/L; ARTERIAL BLOOD FIO2 ROOM AIR; ARTERIAL BLOOD H2CO3 1.35 mmol/L (1.05-1.35); ARTERIAL BLOOD HCO3 25.7 mmol/L (20-24); ARTERIAL BLOOD O2 SATURATION 92.9 % (94-98); ARTERIAL BLOOD PCO2 44.8 mmHg (35-45); ARTERIAL BLOOD PH 7.38 (7.35-7.45); ARTERIAL BLOOD PO2 67.3 mmHg (80-100)
[2019-07-18 20:36] VITALS: BP 99/75
--- NOTE | 2019-07-19 11:05 | XCELERA REPORT ---
[address] [address] Lower Extremity Arterial Evaluation Name: ALBINA WU Age: 43 yrs Gender: Female : 1975 Patient Status: Emergency Patient Location: ER Study Date: 07/18/2019 04:29 PM Procedure: A color flow and duplex scan of the lower extremity arteries was performed on the right with velocity and waveform anaylsis. Reason For Study: ischemic rle Ordering Physician: DONATO WALKER Performed By: Radha Alberts Measurements and Calculations Right Left Prox PFA PSV 11.6 cm/sec Prox Pop A PSV 16.9 cm/sec Right Side Arterial Evaluation Jared no flow and trickle waveforms noted from the Common Femoral artery to the infrageniculate vessels . Ankle Brachial index not done. Interpretation Summary Almost no flow in right lower extremity arteries. This is compatible with massive tissue loss. : DONATO WALKER [place]
== END 2019-07-18 21:14 | disposition short-term general hospital (02) ==
LOC: ER 14:50
DX: N02.8 Recurrent and persistent hematuria with other morphologic changes (principal); G57.81 Other specified mononeuropathies of right lower limb; M79.671 Pain in right foot; R20.0 Anesthesia of skin; R53.1 Weakness; F17.210 Nicotine dependence, cigarettes, uncomplicated; I10 Essential (primary) hypertension; Z86.718 Personal history of other venous thrombosis and embolism; Z86.711 Personal history of pulmonary embolism; Z90.49 Acquired absence of other specified parts of digestive tract
CPT/HCPCS: 36415; 82553; 82803; 85025; 85610; 85730; 80053; 81001; 84484; 80307; 93926 ×2; J3490 ×3; J1885; J2270; J1170; J7060; J7030; 96361; 96365; 96366; 96375; 96376; 99291; 99292

== ENCOUNTER 2019-09-03 03:52 | Emergency (ER) | payer SELFPAY ==
--- NOTE | 2019-09-03 04:12 | ER Document Report ---
ED General - General Chief Complaint: Arm Pain Stated Complaint: LEFT ARM PAIN Time Seen by Provider: 09/03/19 04:01 Primary Care Provider: NATALIE NG FNP-C [NO LOCAL MD] - Follow up as needed Mode of Arrival: Medic Information source: Patient, Emergency Med Personnel Notes: 43 year old white female arrives with acute left upper arm pain with mottled skin from elbow of acute nature within the last 40 minutes when she awoke. 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 TRAVEL OUTSIDE OF THE U.S. IN LAST 30 DAYS: No - HPI Onset: Just prior to arrival Onset/Duration: Sudden Quality of pain: No pain Severity: Moderate Pain Level: Denies Associated symptoms: Weakness Exacerbated by: Movement Relieved by: Denies Similar symptoms previously: Yes Recently seen / treated by doctor: Yes - Dr. Herrera at [facility] - Related Data Allergies/Adverse Reactions: levofloxacin [From Levaquin] Allergy (Verified 07/18/19 15:21) Urticaria seafood Allergy (Uncoded 07/18/19 15:21) Past Medical History - General Information source: Patient, Emergency Med Personnel - Social History Smoking Status: Current Some Day Smoker Cigarette use (# per day): Yes Chew tobacco use (# tins/day): No Smoking Education Provided: Yes Frequency of alcohol use: None Drug Abuse: None Lives with: Family Family History: Reviewed & Not Pertinent, Hypertension, Malignancy Patient has suicidal ideation: No Patient has homicidal ideation: No - Past Medical History Cardiac Medical History: Reports: Hx DVT, Hx Hypertension, Hx Pulmonary Embolism Pulmonary Medical History: Reports: Hx Pneumonia Neurological Medical History: Reports: Hx Migraine Endocrine Medical History: Reports: Hx Diabetes Mellitus Type 2 Renal/ Medical History: Denies: Hx Peritoneal Dialysis Skin Medical History: Reports Hx Cellulitis, Denies Hx MRSA Psychiatric Medical History: Reports: Hx Depression Past Surgical History: Reports: Hx Cholecystectomy, Hx Genitourinary Surgery - Esure, Hx Vascular Surgery - PE - Immunizations Immunizations up to date: No Hx Diphtheria, Pertussis, Tetanus Vaccination: No Review of Systems - Review of Systems Constitutional: See HPI, Malaise, Weakness EENT: No symptoms reported Cardiovascular: No symptoms reported Respiratory: No symptoms reported Gastrointestinal: No symptoms reported Genitourinary: No symptoms reported Female Genitourinary: No symptoms reported Musculoskeletal: See HPI, Joint swelling - Left upper extremity mottling of skin of forearm to hand and no pulses to brachial antecubital and radial ulnar; patient has pain from shoulder to elbow, Muscle pain Skin: No symptoms reported Hematologic/Lymphatic: No symptoms reported Neurological/Psychological: No symptoms reported Physical Exam - Vital signs Vitals: Resp Pulse Ox 11 L 99 09/03/19 03:54 09/03/19 03:54 Interpretation: Hypertensive - General General appearance: Anxious - Potential - HEENT Head: Normocephalic Eyes: Normal - " Conjunctiva: Normal Cornea: Normal Extraocular movements intact: Yes Eyelashes: Normal Pupils: PERRL Nasal: Normal Mouth/Lips: Normal Pharynx: Normal Neck: Normal - Respiratory Respiratory status: No respiratory distress Chest status: Nontender - There is a means clip 1 Breath sounds: Normal Chest palpation: Normal - Cardiovascular Rhythm: Regular Heart sounds: Normal auscultation Murmur: No Friction rub: No Dalton's crunch: No - Abdominal Inspection: Normal Distension: No distension Bowel sounds: Normal Tenderness: Nontender Organomegaly: No organomegaly - Pleasant healthy-appearing stuporous to patient's entertain - Back Back: Normal - Extremities General upper extremity: Tender General lower extremity: Other - Right lower extremity with AKA 80% COPD exacerbation no - Neurological Neuro grossly intact: Yes Cognition: Normal Orientation: AAOx4 Laith Coma Scale Eye Opening: Spontaneous [place] Coma Scale Verbal: Oriented Laith Coma Scale Motor: Obeys Commands [place] Coma Scale Total: 15 Speech: Normal Cranial nerves: Normal Cerebellar coordination: Normal Motor strength normal: LUE, RUE, LLE, RLE - Psychological Associated symptoms: Normal affect - Skin Skin Temperature: Warm Skin Moisture: Dry Course - Vital Signs Vital signs: Temp Pulse Resp BP Pulse Ox 98.0 F 22 H 150/107 H 99 09/03/19 04:30 09/03/19 04:42 09/03/19 04:42 09/03/19 04:42 Critical Care Note - Critical Care Note Total time excluding time spent on procedures (mins): 60 Discharge - Discharge Clinical Impression: Limb ischemia Condition: Critical Disposition: [facility] Additional Instructions: transfer patient to [facility] Referrals: NG,NATALIE, NEUROLOGY NURSE-C [NO LOCAL MD] - Follow up as needed
[2019-09-03 04:48] VITALS: BP 150/107
== END 2019-09-03 04:48 | disposition short-term general hospital (02) ==
LOC: ER 03:52
DX: I99.8 Other disorder of circulatory system (principal); M79.622 Pain in left upper arm; F17.200 Nicotine dependence, unspecified, uncomplicated; R53.1 Weakness; I10 Essential (primary) hypertension; F17.210 Nicotine dependence, cigarettes, uncomplicated; Z86.718 Personal history of other venous thrombosis and embolism; Z88.3 Allergy status to other anti-infective agents; Z89.611 Acquired absence of right leg above knee; Z86.711 Personal history of pulmonary embolism
CPT/HCPCS: 99284

== ENCOUNTER 2020-02-09 15:19 | Emergency (ER) | payer MEDICAID ==
[2020-02-09] MEDS ORDERED: NORMAL SALINE 1000 ML 1,000 ML IV ONE (16:06)
--- NOTE | 2020-02-09 16:09 | ER Document Report ---
ED Medical Screen (RME) - General Chief Complaint: Accidental Overdose Stated Complaint: HEADACHE NAUSEA VOMITTING Time Seen by Provider: 02/09/20 16:05 Primary Care Provider: ANNIE LIVE PA-C [Primary Care Provider] - Follow up as needed Mode of Arrival: Ambulatory Information source: Patient Notes: 44-year-old female presented to ED for headache nausea and vomiting after she took 20 mg of hydrocodone instead of 10. She has a right [id number] amputation that was completed in July of this year for blood clots to the thigh. She also has a history of high blood pressure and diabetes. Said her nausea and vomiting is much better since EMS gave her some Zofran but she still has the headache from the hydrocodone. She states she does smoke 1/2 pack a day. Does not drink any alcohol or use any illicit drugs. Patient is alert oriented respirations regular nonlabored speaking in full sentences. I have provided her with a cool cloth in the waiting room until she is able to be placed in a room. I have greeted and performed a rapid initial assessment of this patient. A comprehensive ED assessment and evaluation of the patient, analysis of test results and completion of medical decision making process will be conducted by an additional ED providers. TRAVEL OUTSIDE OF THE U.[place]. IN LAST 30 DAYS: No - Related Data Allergies/Adverse Reactions: levofloxacin [From Levaquin] Allergy (Verified 07/18/19 15:21) Urticaria seafood Allergy (Uncoded 07/18/19 15:21) Past Medical History - Social History Family history: Arthritis, CAD, CVA, DM, Hyperlipidemia, Hypertension, Malignancy, Thyroid Disfunction - Past Medical History Cardiac Medical History: Reports: Hx DVT, Hx Hypertension, Hx Pulmonary Embolism Pulmonary Medical History: Reports: Hx Pneumonia Neurological Medical History: Reports: Hx Migraine Endocrine Medical History: Reports: Hx Diabetes Mellitus Type 2 Renal/ Medical History: Denies: Hx Peritoneal Dialysis Skin Medical History: Reports Hx Cellulitis, Denies Hx MRSA Psychiatric Medical History: Reports: Hx Depression Past Surgical History: Reports: Hx Cholecystectomy, Hx Genitourinary Surgery - Esure, Hx Vascular Surgery - PE - Immunizations Immunizations up to date: No Hx Diphtheria, Pertussis, Tetanus Vaccination: No Physical Exam - Vital signs Vitals: Temp Pulse Resp BP Pulse Ox 98.5 F 96 16 147/92 H 100 02/09/20 15:38 02/09/20 15:38 02/09/20 15:38 02/09/20 15:38 02/09/20 15:38 Course - Vital Signs Vital signs: Temp Pulse Resp BP Pulse Ox 98.5 F 96 16 147/92 H 100 02/09/20 15:38 02/09/20 15:38 02/09/20 15:38 02/09/20 15:38 02/09/20 15:38 Doctor's Discharge - Discharge Referrals: ANNIE LIVE PA-C [Primary Care Provider] - Follow up as needed
[2020-02-09 16:23] LABS: VENOUS BLOOD BASE EXCESS 2.7 mmol/L; VENOUS BLOOD PCO2 56.8 mmHg (35-63); VENOUS BLOOD PH 7.34 (7.30-7.42)
[2020-02-09 16:26] LABS: ABSOLUTE BASOPHILS # (AUTO) 0.1 10^3/uL (0.0-0.2); ABSOLUTE LYMPHOCYTES (AUTO) 0.8 10^3/uL (0.5-4.7); ABSOLUTE MONOCYTES (AUTO) 0.2 10^3/uL (0.1-1.4); ABSOLUTE NEUT (AUTO) 9.1 10^3/uL (1.7-8.2); BASOPHILS % (AUTO) 0.8 % (0-2); EOSINOPHILS % (AUTO) 0.1 % (0-6); HEMATOCRIT 41.8 % (36.0-47.0); HEMOGLOBIN 14.2 g/dL (12.0-15.5); MEAN CORPUSCULAR HEMOGLOBIN 28.9 pg (27.0-33.4); MEAN CORPUSCULAR VOLUME 85 fl (80-97); MONOCYTES % (AUTO) 1.8 % (3-13); PLATELET COUNT 297 10^3/uL (150-450); RED BLOOD COUNT 4.91 10^6/uL (3.72-5.28); RED CELL DISTRIBUTION WIDTH 20.4 % (11.5-14.0); SEGMENTED NEUTROPHILS % (AUTO) 89.3 % (42-78); TOTAL CELLS COUNTED % (AUTO) 100 %; WHITE BLOOD COUNT 10.2 10^3/uL (4.0-10.5)
[2020-02-09 16:43] LABS: ALBUMIN 3.7 g/dL (3.5-5.0); ALKALINE PHOSPHATASE 244 U/L (38-126); ANION GAP 5 (5-19); BILIRUBIN,TOTAL 1.3 mg/dL (0.2-1.3); BLOOD UREA NITROGEN 6 mg/dL (7-20); CALCIUM 8.9 mg/dL (8.4-10.2); CARBON DIOXIDE 30 mmol/L (22-30); CHLORIDE 98 mmol/L (98-107); GLUCOSE 307 mg/dL (75-110); POTASSIUM 4.7 mmol/L (3.6-5.0); TOTAL PROTEIN 7.2 g/dL (6.3-8.2)
[2020-02-09 16:50] LABS: ASPARTATE AMINO TRANSFERASE 916 U/L (14-36)
[2020-02-09] MEDS ORDERED: BUTALB/ACETAMINOPHEN/CAFFEINE 1 TAB EACH PO ONE (17:37)
[2020-02-09] MEDS ORDERED: KETOROLAC TROMETHAMINE INJ/PF 30 MG/1 ML SDV IV ONE (17:37)
--- NOTE | 2020-02-09 20:24 | RADIOLOGY REPORT (SQ) ---
CLINICAL INDICATION: ruq pain. . TECHNIQUE: Real time multiplanar ultrasonographic delvalle scale imaging was obtained of the right upper quadrant. 48 static images obtained. COMPARISON: None available. CORRELATION: None available. FINDINGS: The liver is heterogeneous. It is enlarged at 16.5 cm. Presumed geographic area of focal fatty sparing right lobe.. No intrahepatic ductal dilatation.. The common bile duct measures 10 millimeters. Portal vein is patent and appropriate in the visualized portion. The gallbladder is surgically absent. Right kidney measures 10.4 cm in greatest dimension. It is unremarkable.. No free intraperitoneal fluid is identified. The midline structures are unremarkable in the visualized portion. . IMPRESSION: Medical hepatic disease, likely steatosis. The gallbladder is surgically absent. Prominence of the extra hepatic biliary tree with the common bile but measuring 1 cm. This is larger than expected even for postcholecystectomy state in a 44-year-old.. ADDENDUM: Prior CT September 22, 2012 has been retrieved . The medical hepatic disease and extra hepatic biliary ductal dilatation are new when compared to 2012
--- NOTE | 2020-02-09 20:47 | ER Document Report ---
ED General - General Chief Complaint: Accidental Overdose Stated Complaint: HEADACHE NAUSEA VOMITTING Time Seen by Provider: 02/09/20 16:05 Primary Care Provider: ANNIE LIVE PA-C [Primary Care Provider] - Follow up as needed Mode of Arrival: Ambulatory Information source: Patient TRAVEL OUTSIDE OF THE [place] IN LAST 30 DAYS: No - HPI Notes: Patient states that she took an extra Percocet this morning on accident at approximately 6 AM. She states she was concerned that maybe she took too much because she had repeated episodes of vomiting so she came to the emergency department for evaluation. She denies having any significant pain. She states that she took the Percocet that she takes chronically for her leg pain secondary to diabetic neuropathy. Patient denies any trouble with urine or stool. No fevers. Patient vomiting was not made better or worse by anything. There is obviously no radiation of the symptom. It was moderate in intensity. - Related Data Allergies/Adverse Reactions: levofloxacin [From Levaquin] Allergy (Verified 07/18/19 15:21) Urticaria seafood Allergy (Uncoded 07/18/19 15:21) Past Medical History - General Information source: Patient - Social History Smoking Status: Current Every Day Smoker Frequency of alcohol use: None Drug Abuse: None Family History: Reviewed & Not Pertinent, Hypertension, Malignancy - Past Medical History Cardiac Medical History: Reports: Hx DVT, Hx Hypertension, Hx Pulmonary Embolism Pulmonary Medical History: Reports: Hx Pneumonia Neurological Medical History: Reports: Hx Migraine Endocrine Medical History: Reports: Hx Diabetes Mellitus Type 2 Renal/ Medical History: Denies: Hx Peritoneal Dialysis Skin Medical History: Reports Hx Cellulitis, Denies Hx MRSA Psychiatric Medical History: Reports: Hx Depression Past Surgical History: Reports: Hx Cholecystectomy, Hx Genitourinary Surgery - Esure, Hx Vascular Surgery - PE - Immunizations Immunizations up to date: No Hx Diphtheria, Pertussis, Tetanus Vaccination: No Review of Systems - Review of Systems Constitutional: denies: Chills, Fever Cardiovascular: denies: Chest pain, Palpitations Respiratory: denies: Cough, Short of breath -: Yes All other systems reviewed and negative Physical Exam - Vital signs Vitals: Temp Pulse Resp BP Pulse Ox 98.5 F 96 16 147/92 H 100 02/09/20 15:38 02/09/20 15:38 02/09/20 15:38 02/09/20 15:38 02/09/20 15:38 Interpretation: Normal - General General appearance: Appears well, Alert - HEENT Head: Normocephalic, Atraumatic Eyes: Normal Pupils: PERRL - Respiratory Respiratory status: No respiratory distress Chest status: Nontender Breath sounds: Normal Chest palpation: Normal - Cardiovascular Rhythm: Regular Heart sounds: Normal auscultation Murmur: No - Abdominal Inspection: Normal Distension: No distension Bowel sounds: Normal Tenderness: Nontender Organomegaly: No organomegaly - Back Back: Normal, Nontender - Extremities General upper extremity: Normal inspection, Nontender, Normal color, Normal ROM, Normal temperature General lower extremity: Normal inspection, Nontender, Normal color, Normal ROM, Normal temperature, Normal weight bearing. No: Kailey's sign - Neurological Neuro grossly intact: Yes Cognition: Normal Orientation: AAOx4 Laith Coma Scale Eye Opening: Spontaneous Laith Coma Scale Verbal: Oriented Laith Coma Scale Motor: Obeys Commands Laith Coma Scale Total: 15 Speech: Normal Motor strength normal: LUE, RUE, LLE, RLE Sensory: Normal - Psychological Associated symptoms: Normal affect, Normal mood - Skin Skin Temperature: Warm Skin Moisture: Dry Skin Color: Normal Course - Re-evaluation Re-evalutation: 02/09/20 20:45 Patient reevaluated just now. Patient denies any symptoms. She states that she no longer feels nauseated that the medications for nausea have significantly helped patient is also received fluids. Patient labs returned showing elevated liver function tests. Ultrasound shows the common bile duct to be elevated even in the light of having a cholecystectomy. With the elevated LFTs and the elevated common bile duct patient is going to have an MRCP. Patient will also have a Tylenol level place since patient is on chronic narcotics to make sure this is not a manifestation of Tylenol toxicity. Patient denies chronically taking more than the prescribed amount of her narcotics. Patient also adamantly denies alcohol use. Care turned over to Dr. Arellano at 9pm 02/09/20 20:47 - Vital Signs Vital signs: Temp Pulse Resp BP Pulse Ox 98.5 F 96 18 155/91 H 93 02/09/20 17:54 02/09/20 15:38 02/09/20 19:01 02/09/20 19:01 02/09/20 19:01 - Laboratory Result Diagrams: 02/09/20 16:15 02/09/20 16:15 Laboratory results interpreted by me: 02/09/20 02/09/20 02/09/20 16:13 16:15 16:15 RDW 20.4 H Lymph % (Auto) 8.0 L Graham % (Auto) 1.8 L Absolute Neuts (auto) 9.1 H Seg Neutrophils % 89.3 H Sodium 133.2 L BUN 6 L Creatinine 0.50 L Glucose 307 H POC Glucose 292 H Direct Bilirubin 1.0 H AST 916 H ALT 595 H Alkaline Phosphatase 244 H - Diagnostic Test Radiology reviewed: Image reviewed, Reports reviewed Discharge - Discharge Clinical Impression: Hepatitis Vomiting Qualifiers: Vomiting type: unspecified Vomiting Intractability: intractable Nausea presence: with nausea Qualified Code(s): R11.2 - Nausea with vomiting, unspecified Condition: Stable Disposition: OTHER Referrals: ANNIE LIVE PA-C [Primary Care Provider] - Follow up as needed
[2020-02-09] MEDS ORDERED: ONDANSETRON HCL INJ/PF 4 MG/2 ML SDV IV ONE ×2 (21:41→21:42)
--- NOTE | 2020-02-09 22:48 | RADIOLOGY REPORT (SQ) ---
EXAM DESCRIPTION: MR ABDOMEN WITHOUT IV CONTRAST COMPLETED DATE/TME: 02/09/2020 20:41 CLINICAL HISTORY: 44 years, Female, abd pain/elevated lft's-mrcp COMPARISON: Prior abdominal ultrasound performed earlier the same day TECHNIQUE: Multiplanar, multisequence MR images of the abdomen were obtained without the use of intravenous contrast. Images stored on PACS. LIMITATIONS: None. FINDINGS: Local Operator images show no suspicious finding. Liver demonstrates diffuse signal loss on opposed phase imaging. Spleen, pancreas, and right adrenal gland appear normal. There is nodular enlargement of the left adrenal gland which demonstrates signal loss on opposed phase imaging, consistent with a benign adenoma. However, there is a separate lesion which emanates from the lateral limb of the left adrenal gland measuring 1.9 x 1.8 cm in size which contains macroscopic fat, indicative of a superimposed myelolipoma. A small bright T2 signal lesion is noted about the lower pole of the left kidney, indicative of a simple renal cyst. Both kidneys are otherwise symmetric in their noncontrast configuration. No hydronephrosis. Visualized portions of the small and large bowel show no suspicious abnormality. Vascular flow voids appear normal. The gallbladder is absent. No significant intrahepatic biliary ductal dilatation is noted. The common bile duct is mildly enlarged, measuring 0.8 cm in diameter. No focal filling defects or mucosal abnormalities are noted about the common bile duct or intrahepatic bile ducts. The main pancreatic duct appears normal in caliber as well. IMPRESSION: Postoperative changes of cholecystectomy. Mild common bile duct dilatation, specifically with the common bile duct measuring up to 0.8 cm in diameter. Otherwise, no evidence of choledocholithiasis or other obstructive anomaly within the common bile duct. Hepatic steatosis. copyright 2010 [employer]- All Rights Reserved
[2020-02-10 01:21] VITALS: BP 172/79
[2020-02-11 10:37] LABS: HEPATITS B SURFACE ANTIGEN Negative (Negative)
[2020-02-11 13:44] LABS: HEPATITIS C VIRUS ANTIBODY <0.1 s/co ratio (0.0-0.9)
== END 2020-02-10 01:32 | disposition home or self-care (01) ==
LOC: ER 15:19
DX: K75.9 Inflammatory liver disease, unspecified (principal); R11.2 Nausea with vomiting, unspecified; R51 Headache; T50.991A Poisoning by other drugs, medicaments and biological substances, accidental (unintentional), initial encounter; Z88.8 Allergy status to other drugs, medicaments and biological substances; F17.200 Nicotine dependence, unspecified, uncomplicated; I10 Essential (primary) hypertension; E11.9 Type 2 diabetes mellitus without complications
CPT/HCPCS: 99285; 96361; 96374; 96375; 36415; 82962; 80307; 84703; 85025; 80053; 82803; 80074; 74181; 76705; J3490; J1885; J2405; J7030

== ENCOUNTER 2020-03-07 10:35 | Inpatient (IN) | payer MEDICAID ==
--- NOTE | 2020-03-07 12:16 | ER Document Report ---
ED Medical Screen (RME) - General Chief Complaint: S/S of Possible Stroke Stated Complaint: HEADACHE Time Seen by Provider: 03/07/20 12:01 Primary Care Provider: ANNIE LIVE PA-C [Primary Care Provider] - Follow up as needed TRAVEL OUTSIDE OF THE [place] IN LAST 30 DAYS: No - HPI Notes: 03/07/20 12:09 44-year-old female history of Buerger's disease presents via EMS for complaints of confusion, reports "having a hard time speaking". She reports confusion started last night. Reports she started having chest pain early this morning and only could shake her head yes or no, When asked if she was having SOB, she stated yes. Unable to give any details as to when her chest pain started or when her shortness of breath started. When I asked her what brought her to the emergency room today she said "everything is wrong, I don't know", unable to tell me what is wrong after much questioning. When asked her what year it it was, she said she did not know where she was. When I asked her if she knew where she was, she stated that it was February. Denies prior history of strokes. patient is a poor historian I have greeted and performed a rapid initial assessment of this patient. A comprehensive ED assessment and evaluation of the patient, analysis of test results and completion of the medical decision making process will be conducted by additional ED providers. PHYSICAL EXAMINATION: GENERAL: Chronically ill ill well-nourished and in mild distress HEAD: Atraumatic, normocephalic. EYES: Pupils equal round extraocular movements intact, conjunctiva are normal. CV: s1, s2 regular LUNGS: No respiratory distress NEUROLOGICAL: Normal speech, able to speak in full sentences. Needs a lot of reorientation PERRLA, EOMI. Laboratory Chemist + 2 equal bilaterally in BUE. Tongue midline. Unable to follow directions to check for pronator drift or ataxia, Raises eyebrows. unable to speak in a full sentence. SKIN: Warm, Dry, normal turgor, no rashes or lesions noted. Charge nurseMargi made aware of stroke alert at 1208 03/07/20 13:17 - Related Data Allergies/Adverse Reactions: levofloxacin [From Levaquin] Allergy (Verified 07/18/19 15:21) Urticaria seafood Allergy (Uncoded 07/18/19 15:21) Past Medical History - Social History Frequency of alcohol use: None Drug Abuse: None Family history: Arthritis, CAD, CVA, DM, Hyperlipidemia, Hypertension, Malignancy, Thyroid Disfunction - Past Medical History Cardiac Medical History: Reports: Hx DVT, Hx Hypertension, Hx Pulmonary Embolism Pulmonary Medical History: Reports: Hx Pneumonia Neurological Medical History: Reports: Hx Migraine Endocrine Medical History: Reports: Hx Diabetes Mellitus Type 2 Renal/ Medical History: Denies: Hx Peritoneal Dialysis Skin Medical History: Reports Hx Cellulitis, Denies Hx MRSA Psychiatric Medical History: Reports: Hx Depression Past Surgical History: Reports: Hx Cholecystectomy, Hx Genitourinary Surgery - Esure, Hx Vascular Surgery - PE - Immunizations Immunizations up to date: No Hx Diphtheria, Pertussis, Tetanus Vaccination: No Physical Exam - Vital signs Vitals: Temp Pulse Resp BP Pulse Ox 98.1 F 80 18 168/87 H 98 03/07/20 10:55 03/07/20 10:55 03/07/20 10:55 03/07/20 10:55 03/07/20 10:55 Course - Vital Signs Vital signs: Temp Pulse Resp BP Pulse Ox 98.1 F 80 18 168/87 H 98 03/07/20 10:55 03/07/20 10:55 03/07/20 10:55 03/07/20 10:55 03/07/20 10:55 - Laboratory Result Diagrams: 03/07/20 12:35 03/07/20 12:35 Laboratory results interpreted by me: 03/07/20 03/07/20 03/07/20 12:35 12:35 12:35 WBC 21.6 H RDW 17.4 H Seg Neuts % (Manual) 90 H Lymphocytes % (Manual) 9 L Monocytes % (Manual) 1 L Abs Neuts (Manual) 19.4 H Sodium 136.2 L Creatinine 0.51 L Glucose 255 H POC Glucose 242 H AST 39 H Alkaline Phosphatase 149 H Doctor's Discharge - Discharge Referrals: ANNIE LIVE PA-C [Primary Care Provider] - Follow up as needed
--- NOTE | 2020-03-07 12:36 | RADIOLOGY REPORT (SQ) ---
EXAM DESCRIPTION: CHEST SINGLE VIEW IMAGES COMPLETED DATE/TIME: 03/07/2020 12:20 pm REASON FOR STUDY: AMS, confusion, headache COMPARISON: 04/28/2018 EXAM PARAMETERS: NUMBER OF VIEWS: One view. TECHNIQUE: Single frontal radiographic view of the chest acquired. RADIATION DOSE: NA LIMITATIONS: None. FINDINGS: LUNGS AND PLEURA: No opacities, masses or pneumothorax. No pleural effusion. MEDIASTINUM AND HILAR STRUCTURES: No masses. Contour normal. HEART AND VASCULAR STRUCTURES: Heart normal in size. Normal vasculature. BONES: No acute findings. HARDWARE: None in the chest. OTHER: No other significant finding. IMPRESSION: NO ACUTE RADIOGRAPHIC FINDING IN THE CHEST. TECHNICAL DOCUMENTATION: JOB ID: [id number] 2010 [employer]- All Rights Reserved Reading location - IP/workstation name: [email or web address]
--- NOTE | 2020-03-07 12:37 | RADIOLOGY REPORT (SQ) ---
EXAM DESCRIPTION: CT HEAD WITHOUT IMAGES COMPLETED DATE/TIME: 03/07/2020 12:26 pm REASON FOR STUDY: AMS, confusion, headache COMPARISON: 2016 TECHNIQUE: Axial images acquired through the brain without intravenous contrast. Images reviewed wi th bone, brain and subdural windows. Additional sagittal and coronal reconstructions were generated. Images stored on PACS. All CT scanners at this facility use dose modulation, iterative reconstruction, and/or weight based d osing when appropriate to reduce radiation dose to as low as reasonably achievable (ALARA). [facility]: Dose Right [facility]: CareDose [facility]: Dose Right [facility]: Teradose 4D [facility]: [employer] RADIATION DOSE: CT Rad equipment meets quality standard of care and radiation dose reduction techniq ues were employed. CTDIvol: 53.2 mGy. DLP: 1097 mGy-cm. mGy. LIMITATIONS: None. FINDINGS: VENTRICLES: Normal size and contour. CEREBRUM: No masses. No hemorrhage. No midline shift. No evidence for acute infarction. Normal gra y/white matter differentiation. No areas of low density in the white matter. CEREBELLUM: No masses. No hemorrhage. No alteration of density. No evidence for acute infarction. EXTRAAXIAL SPACES: No fluid collections. No masses. ORBITS AND GLOBE: No intra- or extraconal masses. Normal contour of globe without masses. CALVARIUM: No fracture. PARANASAL SINUSES: No fluid or mucosal thickening. SOFT TISSUES: No mass or hematoma. OTHER: No other significant finding. IMPRESSION: NORMAL BRAIN CT WITHOUT CONTRAST. EVIDENCE OF ACUTE STROKE: NO. COMMENT: Quality ID # [id number]: Final reports with documentation of one or more dose reduction techniques (e.g., Automated exposure control, adjustment of the mA and/or kV according to patient size, use of iterative reconstruction technique) TECHNICAL DOCUMENTATION: JOB ID: [id number] 2010 [employer]- All Rights Reserved Reading location - IP/workstation name: [email or web address]
[2020-03-07 12:52] LABS: HEMATOCRIT 45.2 % (36.0-47.0); HEMOGLOBIN 15.2 g/dL (12.0-15.5); MEAN CORPUSCULAR HEMOGLOBIN 29.5 pg (27.0-33.4); MEAN CORPUSCULAR HGB CONC 33.5 g/dL (32.0-36.0); MEAN CORPUSCULAR VOLUME 88 fl (80-97); PLATELET COUNT 347 10^3/uL (150-450); RED BLOOD COUNT 5.13 10^6/uL (3.72-5.28); RED CELL DISTRIBUTION WIDTH 17.4 % (11.5-14.0); WHITE BLOOD COUNT 21.6 10^3/uL (4.0-10.5)
[2020-03-07 12:57] LABS: INTERNATIONAL RATION (INR) 1.01; PROTHROMBIN TIME 13.5 SEC (11.4-15.4)
[2020-03-07 12:58] LABS: PARTIAL THROMBOPLASTIN TIME 28.1 SEC (23.5-35.8)
[2020-03-07 13:10] LABS: ALKALINE PHOSPHATASE 149 U/L (38-126); ANION GAP 10 (5-19); ASPARTATE AMINO TRANSFERASE 39 U/L (14-36); BILIRUBIN,DIRECT 0.3 mg/dL (0.0-0.4); BILIRUBIN,TOTAL 0.5 mg/dL (0.2-1.3); BLOOD UREA NITROGEN 9 mg/dL (7-20); CALCIUM 9.3 mg/dL (8.4-10.2); CARBON DIOXIDE 25 mmol/L (22-30); CHLORIDE 101 mmol/L (98-107); GLUCOSE 255 mg/dL (75-110); POTASSIUM 4.4 mmol/L (3.6-5.0); TOTAL PROTEIN 7.6 g/dL (6.3-8.2)
[2020-03-07 13:15] LABS: ABSOLUTE LYMPHOCYTES# (MANUAL) 1.9 10^3/uL (0.5-4.7); ABSOLUTE MONOCYTES # (MANUAL) 0.2 10^3/uL (0.1-1.4); BASOPHILS % (MANUAL) 0 % (0-2); EOSINOPHILS % (MANUAL) 0 % (0-6); LYMPHOCYTES % (MANUAL) 9 % (13-45); MONOCYTES % (MANUAL) 1 % (3-13); SEGMENTED NEUTROPHILS % (MAN) 90 % (42-78); TOTAL CELLS COUNTED 100
[2020-03-07 13:16] LABS: ANISOCYTOSIS 1+; PLATELET COMMENT ADEQUATE
[2020-03-07] MEDS ORDERED: LORAZEPAM INJ 2 MG/1 ML VIAL IV ONE (13:45)
[2020-03-07 13:48] LABS: URINE AMPHETAMINES SCREEN NEGATIVE; URINE BARBITURATES SCREEN NEGATIVE; URINE BENZODIAZEPINES SCREEN NEGATIVE; URINE COCAINE SCREEN NEGATIVE; URINE MARIJUANA (THC) SCREEN NEGATIVE; URINE METHADONE SCREEN NEGATIVE; URINE PHENCYCLIDINE SCREEN NEGATIVE
--- NOTE | 2020-03-07 13:52 | ER Document Report ---
ED General - General Chief Complaint: S/S of Possible Stroke Stated Complaint: HEADACHE Time Seen by Provider: 03/07/20 12:01 Primary Care Provider: ANNIE LIVE PA-C [Primary Care Provider] - Follow up as needed TRAVEL OUTSIDE OF THE [place] IN LAST 30 DAYS: No - HPI Notes: Patient is a 44-year-old female who presents to the ER for evaluation of confusion. The patient cannot offer me any significant history, other than stating that her symptoms started last night. She just repeats to me, I am so scared. I am going to , on I?" She states she lives with her children, but cannot tell me their names. She cannot tell me who her primary care provider is. She denies any pain at this time. She has limited ability to cooperate with exam. Medical history is obtained from prior [facility] charts. Patient's son is able to offer a small amount of additional history. Evidently yesterday she was complaining of a headache. She does have history of migrain es. This morning she was tearful at about 9 AM. Boyfriend and son were trying to ask her what was wrong. She said she was hurting. They asked her where and she stated "I do not know." That is primarily how she has been answering questions. - Related Data Allergies/Adverse Reactions: levofloxacin [From Levaquin] Allergy (Verified 07/18/19 15:21) Urticaria seafood Allergy (Uncoded 07/18/19 15:21) Home Medications: Trulicity weekly, glyburide, duloxetine, atorvastatin, Xarelto 20 mg daily, Abilify Past Medical History - General Information source: [facility] Records - Social History Smoking Status: Current Every Day Smoker Frequency of alcohol use: None Drug Abuse: None Family History: Reviewed & Not Pertinent, Hypertension, Malignancy - Past Medical History Cardiac Medical History: Reports: Hx DVT, Hx Hypertension, Hx Pulmonary Embolism Pulmonary Medical History: Reports: Hx Pneumonia Neurological Medical History: Reports: Hx Migraine Endocrine Medical History: Reports: Hx Diabetes Mellitus Type 2 Renal/ Medical History: Denies: Hx Peritoneal Dialysis Skin Medical History: Reports Hx Cellulitis, Denies Hx MRSA Psychiatric Medical History: Reports: Hx Depression Past Surgical History: Reports: Hx Cholecystectomy, Hx Genitourinary Surgery - Esure, Hx Vascular Surgery - PE - Immunizations Immunizations up to date: No Hx Diphtheria, Pertussis, Tetanus Vaccination: No Review of Systems - Review of Systems -: Yes ROS unobtainable due to patient's medical condition Physical Exam - Vital signs Vitals: Temp Pulse Resp BP Pulse Ox 98.1 F 80 18 168/87 H 98 03/07/20 10:55 03/07/20 10:55 03/07/20 10:55 03/07/20 10:55 03/07/20 10:55 - Notes Notes: This is a 44-year-old morbidly obese female, who appears older than her stated age, in a moderate amount of distress. She is extremely anxious, repeats the same questions repeatedly. Head is normocephalic and appears atraumatic, pupils are equal and round, reactive to light. Oral mucosa is moist. Uvula is midline. There is no gross facial asymmetry. No nuchal rigidity or meningismus noted. Heart is regular rate and rhythm, lungs are clear to auscultation bilaterally. Abdomen is obese, nontender, normoactive bowel sounds. 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 No skin breakdown noted. Left lower extremities without cyanosis, clubbing, edema. No posterior calf tenderness. Patient moves her extremities spontaneously. 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 She can only follow limited in simple commands. She cannot repeat words. She has 3+ brachioradialis reflexes on the right, 2+ on the left. Course - Re-evaluation Re-evalutation: 03/07/20 13:50 Patient presents to the emergency department for evaluation. History is extremely limited at this time, but I am concerned about the possibility of an intracranial issue causing her symptoms. I am currently trying to obtain in formation from family members, but as of now they are unreachable. Patient is extremely anxious, I will order Ativan for her. Hopefully this will allow her to have a CT angiogram of her head and neck for further evaluation. Still awaiting labs, we will continue to monitor. 03/07/20 15:03 CTA of the head and neck are unremarkable. I have obtained additional history from son, she was complaining of a headache. Given her altered mental status as well as leukocytosis, I would be concerned about an infectious process such as meningitis/encephalitis causing her symptoms. I talked to him at length, and indicated that, in the presence of a normal CT head and neck, I would recommend a lumbar puncture be performed. I will order Rocephin. I talked to him about the indications, complications of this possible procedure. It was explained in great detail. The patient is unable to consent at this time, so son has given emergency consent. 03/07/20 15:18 I had asked patient if she was on blood thinners, initially she said no. I reverified with the son regarding her medications. He states that he has them in a bag in the car. He was able to bring them in, she is in fact on Xarelto. The patient is not a reliable historian, but states she did not have any today. I cannot guarantee this. Unfortunately because of this, the patient cannot undergo lumbar puncture today. I have covered with ceftriaxone, given her leukocytosis, but I do suspect this is more likely an acute CVA. I will contact medicine for admission. 03/07/20 15:19 Patient's initial blood pressure was elevated but not markedly so. Throughout the course of her stay her blood pressure has increased. I did order labetalol IV to be administered. Current blood pressure is 204/100 with a heart rate of 110. 03/07/20 15:24 I have contacted the medicine service for admission. Awaiting phone call from Dr. Blanchard. 03/07/20 15:[address] Blanchard. He did accept the admission to [facility] [place]. He suggested addition of an antiviral to cover for encephalitis, which is reasonable at this point. Acyclovir ordered. - Vital Signs Vital signs: Temp Pulse Resp BP Pulse Ox 98.1 F 91 24 H 184/107 H 97 03/07/20 10:55 03/07/20 12:35 03/07/20 14:37 03/07/20 14:01 03/07/20 14:37 - Laboratory Result Diagrams: 03/07/20 12:35 03/07/20 12:35 Laboratory results interpreted by me: 03/07/20 03/07/20 03/07/20 12:35 12:35 12:35 WBC 21.6 H RDW 17.4 H Seg Neuts % (Manual) 90 H Lymphocytes % (Manual) 9 L Monocytes % (Manual) 1 L Abs Neuts (Manual) 19.4 H Sodium 136.2 L Creatinine 0.51 L Glucose 255 H POC Glucose 242 H AST 39 H Alkaline Phosphatase 149 H - Diagnostic Test Radiology reviewed: Reports reviewed Radiology results interpreted by me: 03/07/20 15:19 Chest X-Ray 03/07/20 12:07 IMPRESSION: NO ACUTE RADIOGRAPHIC FINDING IN THE CHEST. Head CT 03/07/20 12:07 IMPRESSION: NORMAL BRAIN CT WITHOUT CONTRAST. EVIDENCE OF ACUTE STROKE: NO. Head CTA 03/07/20 13:36 IMPRESSION: NO CTA EVIDENCE OF STENOSIS OR ANEURYSM OF THE [place]. Neck CTA 03/07/20 13:39 IMPRESSION: No aneurysm, stenosis, or dissection of the extracranial carotid and vertebral arteries. - EKG Interpretation by Me Additional EKG results interpreted by me: 03/07/20 13:51 Sinus mechanism with rate of 93 bpm. Left axis deviation. Normal intervals. Nonspecific T wave changes, but no acute ST elevation concerning for infarction. No change when compared to prior study of April 28, 2018. Critical Care Note - Critical Care Note Total time excluding time spent on procedures (mins): 20 Discharge - Discharge Clinical Impression: Altered mental status, Leukocytosis Condition: Stable Disposition: ADMITTED INPATIENT Admitting Provider: Lo (Hospitalist) Unit Admitted: IMCU Referrals: ANNIE LIVE PA-C [Primary Care Provider] - Follow up as needed
--- NOTE | 2020-03-07 14:34 | EKG REPORT ---
SEVERITY:- BORDERLINE ECG - SINUS RHYTHM BORDERLINE LEFT AXIS DEVIATION BORDERLINE T WAVE ABNORMALITIES : Confirmed by: Ivonne Mcdonnell MD 07-Mar-2020 14:34:07
--- NOTE | 2020-03-07 14:52 | RADIOLOGY REPORT (SQ) ---
EXAM DESCRIPTION: CTA NECK IMAGES COMPLETED DATE/TIME: 03/07/2020 2:39 pm REASON FOR STUDY: altered mental status, RUE weakness COMPARISON: None. TECHNIQUE: Axial dynamic scanning technique with dynamic contrast enhancement through the extra-electrician aircraft nial carotid and vertebral arteries. Multiplanar reconstruction. 3-D MIPS and Volume-rendered imag es acquired at the workstation and saved to PACS. Images are reviewed in soft tissue, bone, lung w indows. All CT scanners at this facility use dose modulation, iterative reconstruction, and/or weight based d osing when appropriate to reduce radiation dose to as low as reasonably achievable (ALARA). [facility]: Dose Right [facility]: CareDose [facility]: Dose Right [facility]: Teradose 4D [facility]: [employer] CONTRAST TYPE AND DOSE: 70 mL Omnipaque 350- low osmolar. RENAL FUNCTION: BUN 9 creatinine 0.51 LIMITATIONS: None. FINDINGS: AORTIC ARCH: Normal three-vessel origin. Bilateral subclavian arteries are patent. No d issection. RIGHT CAROTIDS: Patent common, internal and external carotid arteries without suggestion of significa nt stenosis or irregular plaque. No dissection. Tortuous CCA and ICA. RIGHT VERTEBRAL: Patent. No dissection. LEFT CAROTIDS: Patent common, internal and external carotid arteries without suggestion of significan t stenosis or irregular plaque. No dissection. Tortuous CCA and ICA. LEFT VERTEBRAL: Patent. No dissection. OTHER: No other significant finding. OTHER: 3-D reconstructions confirm findings. IMPRESSION: No aneurysm, stenosis, or dissection of the extracranial carotid and vertebral arteries. COMMENT: Quality ID #[id number]: Measurements of distal internal carotid diameter were used as the denomina tor for stenosis measurement. TECHNICAL DOCUMENTATION: JOB ID: [id number] Quality ID # 436: Final reports with documentation of one or more dose reduction techniques (e.g., Au tomated exposure control, adjustment of the mA and/or kV according to patient size, use of iterative reconstruction technique) 2010 [employer]- All Rights Reserved Reading location - IP/workstation name: [email or web address]
--- NOTE | 2020-03-07 14:57 | RADIOLOGY REPORT (SQ) ---
EXAM DESCRIPTION: CTA HEAD IMAGES COMPLETED DATE/TIME: 03/07/2020 2:39 pm REASON FOR STUDY: altered mental status, RUE weakness COMPARISON: None. TECHNIQUE: Post IV contrast scanning, thin section axial imaging through the brain to evaluate the a rterial structures. Source and MIP images are saved and reviewed on PACS. Advanced 3D imaging as volume-rendering, MIPs, SSD performed? yes All CT scanners at this facility use dose modulation, iterative reconstruction, and/or weight based d osing when appropriate to reduce radiation dose to as low as reasonably achievable (ALARA). [facility]: Dose Right [facility]: CareDose [facility]: Dose Right [facility]: Teradose 4D [facility]: [employer] CONTRAST TYPE AND DOSE: contrast/concentration: Isovue 350.00 mmol/ml; Total Contrast Delivered: 70. 0 ml; Total Saline Delivered: 75.0 ml RENAL FUNCTION: BUN 9 creatinine 0.51 LIMITATIONS: None. FINDINGS: [place]: The anterior, middle, posterior cerebral arteries are all patent. No ev idence of aneurysm or focal stenosis. POSTERIOR CIRCULATION: The distal vertebral arteries are patent as is the basilar artery. No aneurysm . BRAIN: No gross enhancing lesions as visualized. BONES: Intact as visualized. SINUSES: No fluid or mucosal thickening. OTHER: No other significant finding. IMPRESSION: NO CTA EVIDENCE OF STENOSIS OR ANEURYSM OF THE [place]. TECHNICAL DOCUMENTATION: JOB ID: [id number] Quality ID # [id number]: Final reports with documentation of one or more dose reduction techniques (e.g., Au tomated exposure control, adjustment of the mA and/or kV according to patient size, use of iterative reconstruction technique) 2010 [employer]- All Rights Reserved Reading location - IP/workstation name: [email or web address]
[2020-03-07] MEDS ORDERED: CEFTRIAXONE 2 GM/D5W RTU 2 GM/50 ML RTUPB IV ONE (15:05)
[2020-03-07] MEDS ORDERED: LABETALOL HCL INJ 20 MG/4 ML DISP.SYRIN IV ONE (15:10)
[2020-03-07] MEDS ORDERED: ACYCLOVIR SODIUM INJ/PF 500 MG/10 ML SDV IV ONE (15:29)
[2020-03-07] MEDS ORDERED: IPRATROPIUM/ALBUTEROL 0.5-2.5 MG/3 ML AMPUL NEB PRN (15:59)
[2020-03-07] MEDS ORDERED: ACETAMINOPHEN 325 MG TABLET PO PRN (15:59)
[2020-03-07] MEDS ORDERED: ONDANSETRON HCL INJ/PF 4 MG/2 ML SDV IV PRN (15:59)
[2020-03-07] MEDS ORDERED: NORMAL SALINE 1000 ML 1,000 ML IV PRN ×2 (15:59→17:36)
[2020-03-07] MEDS ORDERED: DEXTROSE 50%-WATER 25 GM/50 ML DISP.SYRIN IV PRN ×2 (16:07)
[2020-03-07] MEDS ORDERED: DEXTROSE 40% GEL 15 GM TUBE PO PRN ×2 (16:07)
[2020-03-07] MEDS ORDERED: GLUCAGON,HUMAN RECOMB 1 MG INJ IM PRN (16:07)
[2020-03-07] MEDS ORDERED: HYDRALAZINE HCL INJ/PF 20 MG/1 ML SDV IV PRN (16:07)
[2020-03-07] MEDS ORDERED: LORAZEPAM INJ 2 MG/1 ML VIAL IV PRN (16:08)
[2020-03-07] MEDS ORDERED: LEVOFLOXACIN 750 MG/D5W RTU 750 MG/150 ML RTUPB IV ONE (16:08)
[2020-03-07 16:31] LABS: APPEARANCE,URINE CLEAR; BILIRUBIN,URINE NEGATIVE (NEGATIVE); COLOR,URINE YELLOW; GLUCOSE, URINE 150 mg/dL (NEGATIVE); KETONES,URINE TRACE mg/dL (NEGATIVE); LEUKOCYTE ESTERASE,URINE NEGATIVE (NEGATIVE); NITRITE,URINE NEGATIVE (NEGATIVE); PROTEIN,URINE 100 mg/dL (NEGATIVE); URINE SPECIFIC GRAVITY 1.053; UROBILINOGEN,URINE NEGATIVE mg/dL (<2.0)
--- NOTE | 2020-03-07 16:34 | PDOC H&P ---
History of Present Illness Admission Date/PCP: 03/07/20 15:39 ANNIE LIVE PA-C Patient complains of: Patient was brought to the emergency room by family members with complaints of altered mental status. History of Present Illness: ALBINA WU is a 44 year old female with history of hypertension, diabetes mellitus, anxiety, depression,, PE on Xarelto right BKA was brought to the emergency room by family members with complaints of altered mental status. As per the patient's son she called him screaming and crying that she is in pain unable to take anything more than the family called EMS was brought to the emergency room for further evaluation. In the emergency room work-up indicates WBC count of 21,600, CT of the neck, head, CT head came back negative. X-ray was negative for pneumonia. Urine tox is negative. Urine analysis pending. Lactic acid level is pending. Again no fever was noticed in the emergency room. Medical consult was called for altered mental status and questionable meningitis. Past Medical History Cardiac Medical History: Reports: DVT, Hypertension, Pulmonary Embolism Pulmonary Medical History: Reports: Pneumonia Neurological Medical History: Reports: Migraine Endocrine Medical History: Reports: Diabetes Mellitus Type 2 Psychiatric Medical History: Reports: Depression Past Surgical History Past Surgical History: Reports: Cholecystectomy, Vascular Surgery - PE Social History Smoking Status: Current Every Day Smoker Frequency of Alcohol Use: Rare - Advance Directive Resuscitation Status: Full Code Family History Family History: Reviewed & Not Pertinent, Hypertension, Malignancy Parental Family History Reviewed: Yes - History of hypertension and diabetes mellitus Children Family History Reviewed: Yes Sibling(s) Family History Reviewed.: Yes Medication/Allergy Home Medications: Aripiprazole [Abilify 2 mg Tablet] 2 mg PO DAILY 03/07/20 Atorvastatin Calcium [Lipitor 20 mg Tablet] 20 mg PO QHS 03/07/20 Dulaglutide [Trulicity] 0.75 mg SQ .QWEEKLY 03/07/20 Duloxetine HCl [Cymbalta 30 mg Capsule.dr] 30 mg PO DAILY 03/07/20 Duloxetine HCl [Cymbalta] 60 mg PO QPM 03/07/20 Gabapentin [Neurontin] 800 mg PO QID 03/07/20 Glyburide [Diabeta 2.5 mg Tablet] 5 mg PO BID 03/07/20 Hydrocodone/Acetaminophen [[place] 10-325 Tablet] 1 each PO Q6HP PRN 03/07/20 Allergies/Adverse Reactions: levofloxacin [From Levaquin] Allergy (Verified 07/18/19 15:21) Urticaria seafood Allergy (Uncoded 07/18/19 15:21) Review of Systems ROS unobtainable: Other - Most of the history obtained from the son. Constitutional: PRESENT: fatigue, headache(s), weakness. ABSENT: chills, fever (s), night sweats Eyes: ABSENT: visual disturbances Ears: ABSENT: hearing changes Nose, Mouth, and Throat: ABSENT: sore throat Cardiovascular: ABSENT: edema, orthropnea, palpitations Respiratory: ABSENT: dyspnea, hemoptysis Gastrointestinal: ABSENT: constipation, hematemesis, hematochezia, nausea, vomiting Genitourinary: ABSENT: dysuria, hematuria Musculoskeletal: ABSENT: joint swelling Integumentary: ABSENT: rash, wounds Neurological: PRESENT: weakness Psychiatric: ABSENT: anxiety, depression, homidical ideation, suicidal ideation Physical Exam Vital Signs: Temp Pulse Resp BP Pulse Ox 98.1 F 91 21 H 174/101 H 96 03/07/20 10:55 03/07/20 12:35 03/07/20 16:03 03/07/20 16:03 03/07/20 16:03 Intake & Output 03/06/20 03/07/20 03/08/20 06:59 06:59 06:59 Weight 101 kg General appearance: PRESENT: no acute distress, morbidly obese Head exam: PRESENT: atraumatic Eye exam: PRESENT: PERRLA Ear exam: PRESENT: normal external ear exam Teeth exam: PRESENT: poor dentation Neck exam: ABSENT: carotid bruit, JVD, lymphadenopathy, meningismus, thyromegaly Respiratory exam: PRESENT: decreased breath sounds Cardiovascular exam: PRESENT: RRR. ABSENT: diastolic murmur, rubs, systolic murmur GI/Abdominal exam: PRESENT: normal bowel sounds, soft. ABSENT: distended, guarding, mass, organolmegaly, rebound, tenderness Rectal exam: PRESENT: deferred Extremities exam: PRESENT: full ROM, other - rt aka. ABSENT: calf tenderness, clubbing, pedal edema Neurological exam: PRESENT: alert, awake, oriented to person, oriented to place, oriented to time, oriented to situation, CN II-XII grossly intact. ABSENT: motor sensory deficit Psychiatric exam: PRESENT: appropriate affect, normal mood. ABSENT: homicidal ideation, suicidal ideation Skin exam: PRESENT: dry, intact, warm. ABSENT: cyanosis, rash Results Laboratory Results: 03/07/20 12:35 03/07/20 12:35 03/07/20 03/07/20 03/07/20 12:35 12:35 13:20 WBC 21.6 H RBC 5.13 Hgb 15.2 Hct 45.2 MCV 88 MCH 29.5 MCHC 33.5 RDW 17.4 H Plt Count 347 Seg Neutrophils % Not Reportable Sodium 136.2 L Potassium 4.4 Chloride 101 Carbon Dioxide 25 Anion Gap 10 BUN 9 Creatinine 0.51 L Est GFR ( Amer) > 60 Glucose 255 H Calcium 9.3 Total Bilirubin 0.5 AST 39 H Alkaline Phosphatase 149 H Total Protein 7.6 Albumin 4.0 Urine Color Cancelled Urine Appearance Cancelled Urine pH Cancelled Ur Specific [place] Cancelled Urine Protein Cancelled Urine Glucose (UA) Cancelled Urine Ketones Cancelled Urine Blood Cancelled Urine Nitrite Cancelled Ur Leukocyte Esterase Cancelled Urine WBC (Auto) Cancelled Urine RBC (Auto) Cancelled 03/07/20 12:35 Troponin I < 0.012 Impressions: Chest X-Ray 03/07/20 12:07 IMPRESSION: NO ACUTE RADIOGRAPHIC FINDING IN THE CHEST. Head CT 03/07/20 12:07 IMPRESSION: NORMAL BRAIN CT WITHOUT CONTRAST. EVIDENCE OF ACUTE STROKE: NO. Head CTA 03/07/20 13:36 IMPRESSION: NO CTA EVIDENCE OF STENOSIS OR ANEURYSM OF THE [place]. Neck CTA 03/07/20 13:39 IMPRESSION: No aneurysm, stenosis, or dissection of the extracranial carotid and vertebral arteries. Assessment and Plan - Diagnosis (1) Altered mental status Is this a current diagnosis for this admission?: Yes Plan: 03/07/2020-patient is going to be admitted to [facility] for altered mental status. Started on IV Rocephin 2 g daily, levofloxacin 750 mg IV daily, urine analysis blood cultures requested. GI prophylaxis DVT initiated. Patient was placed on Lovenox 1 mg subcu per KG every 12 hours. Patient was started on acyclovir is on 50 mg IV daily. To start the patient dexamethasone 4 mg daily. Neurochecks every 4 hours requested. Aspiration fall seizure precautions requested. CT head is negative CT of the neck is negative for stroke MRI of the brain without contrast was requested today. alvarado Catheter will be requested. (2) Leukocytosis Is this a current diagnosis for this admission?: Yes Plan: 03/07/2020-patient came in with WBC count of 21,600 and altered mental status. To rule out meningitis. Started on Rocephin 2 g IV daily, levofloxacin 750 mg IV daily and acyclovir 750 mg IV daily. To start on dexamethasone 4 mg daily. To repeat the labs tomorrow. Aspiration fall seizure precautions requested. (3) SIRS (systemic inflammatory response syndrome) Is this a current diagnosis for this admission?: Yes Plan: 03/07/2020-patient came in with elevated WBC count and altered mental status. Lactic acid level is pending. Afebrile. Started on IV antibiotic therapy. (4) HTN (hypertension) Is this a current diagnosis for this admission?: No Plan: 03/07/2020-patient has history of chronic essential hypertension on li sinoprilhydrochlorothiazide. To keep the patient n.p.o. and started on IV hydralazine 10 mg every 4 hours as needed for systolic blood pressure more than 170. (5) Diabetes Qualifiers: Diabetes mellitus type: type 2 Is this a current diagnosis for this admission?: Yes Plan: 03/07/2020-patient has history of type 2 diabetes mellitus. Presently n.p.o. started on insulin sliding scale before meals and at bedtime.to check for hemoglobin a1c (6) Meningitis Is this a current diagnosis for this admission?: Yes Plan: 03/07/2020-patient is on Xarelto at home which is going to be on hold. Started on Lovenox treatment dose. To arrange for LP in the next 24 to 48 hours. Started on IV Rocephin 2 g daily, to start on IV vancomycin pharmacy is going to dose the medication at this time. Started on acyclovir 750 mg IV every 8 hours. To start on dexamethasone 4 mg iv twice daily. (7) Obesity (BMI 30-39.9) Is this a current diagnosis for this admission?: No Plan: 03/07/2020-patient BMI is more than 38. Diet exercise weight loss lifestyle modifications will be discussed with the patient once altered mental status is resolved. - Time Anticipated Discharge Disposition: Home, Self Care Anticipated Discharge Timeframe: within 72 hours
[2020-03-07] MEDS ORDERED: MORPHINE SULFATE 10 MG/ML INJ IV PRN (16:35)
[2020-03-07 17:55] LABS: ARTERIAL BLOOD BASE EXCESS -0.5 mmol/L; ARTERIAL BLOOD H2CO3 0.88 mmol/L (1.05-1.35); ARTERIAL BLOOD HCO3 21.7 mmol/L (20-24); ARTERIAL BLOOD O2 SATURATION 95.2 % (94-98); ARTERIAL BLOOD PCO2 29.1 mmHg (35-45); ARTERIAL BLOOD PH 7.49 (7.35-7.45); ARTERIAL BLOOD PO2 68.7 mmHg (80-100); ARTERIAL BLOOD TOTAL CO2 22.6 mmol/L (21-25)
[2020-03-07 17:56] LABS: ARTERIAL BLOOD FIO2 ROOM AIR
[2020-03-07] MEDS ORDERED: INSULIN REG, HUMAN 100 UNIT/ML 3 ML VIAL (PYX) SUBCUT SCH (18:00)
--- NOTE | 2020-03-07 19:29 | RADIOLOGY REPORT (SQ) ---
EXAM DESCRIPTION: MRI HEAD WITHOUT IMAGES COMPLETED DATE/TIME: 03/07/2020 7:19 pm REASON FOR STUDY: r/o stroke COMPARISON: CT brain dated 03/07/2020. TECHNIQUE: Multiplanar imaging includes non-contrasted T1, T2, FLAIR, and diffusion with ADC map seq uences. Images stored on PACS. LIMITATIONS: None. FINDINGS: ANATOMY: No anomalies. Normal vascular flow voids. Pituitary fossa normal. CSF SPACES: Normal in size and contour. No hemorrhage. CEREBRUM: Sulci and gyri normal in size and contour. Normal white matter signal on FLAIR imaging. No evidence of hemorrhage, mass, or extraaxial fluid collection. POSTERIOR FOSSA: No signal alteration. No hemorrhage. No edema, masses or mass effect. Internal raman tory canals, cerebello-pontine angles, mastoids normal. DIFFUSION IMAGING: Negative for acute or sub-acute infarction. ORBITS: No masses. Globes normal. PARANASAL SINUSES: No fluid levels. Mucosa normal. OTHER: No other significant finding. IMPRESSION: NORMAL MRI OF THE BRAIN WITHOUT INTRAVENOUS GADOLINIUM CONTRAST. EVIDENCE OF ACUTE STROKE: NO. TECHNICAL DOCUMENTATION: JOB ID: [id number] [employer]- All Rights Reserved Reading location - IP/workstation name: [email or web address]
[2020-03-07] MEDS: VANCOMYCIN HCL 1,250 MG in DEXTROSE 5%-WATER 250 ML IV SCH (20:53)
[2020-03-07] MEDS ORDERED: METOPROLOL TARTRATE PF/INJ 5 MG/5 ML SDV IV PRN (22:02)
[2020-03-07] MEDS: FAMOTIDINE INJ/PF 20 MG/2 ML SDV IV SCH (22:20)
[2020-03-07] MEDS: DEXAMETHASONE SOD PHOSPHATE INJ 4 MG/1 ML VIAL IV SCH (22:20)
[2020-03-07] MEDS: ENOXAPARIN SODIUM INJ 100 MG/1 ML DISP.SYRIN SUBCUT SCH (22:20)
[2020-03-07] MEDS: ACYCLOVIR SODIUM 700 MG in NORMAL SALINE 100 ML IV SCH (23:39)
[2020-03-08] MEDS: VANCOMYCIN HCL 1,250 MG in DEXTROSE 5%-WATER 250 ML IV SCH ×3 (04:45→20:46)
[2020-03-08] MEDS: ACYCLOVIR SODIUM 700 MG in NORMAL SALINE 100 ML IV SCH ×3 (06:09→22:12)
[2020-03-08 06:38] LABS: APPEARANCE,URINE TURBID; BILIRUBIN,URINE NEGATIVE (NEGATIVE); COLOR,URINE YELLOW; GLUCOSE, URINE 50 mg/dL (NEGATIVE); KETONES,URINE 20 mg/dL (NEGATIVE); LEUKOCYTE ESTERASE,URINE NEGATIVE (NEGATIVE); NITRITE,URINE NEGATIVE (NEGATIVE); PROTEIN,URINE 100 mg/dL (NEGATIVE); URINE SPECIFIC GRAVITY 1.034; UROBILINOGEN,URINE NEGATIVE mg/dL (<2.0)
[2020-03-08 06:42] LABS: ABSOLUTE BASOPHILS # (AUTO) 0.1 10^3/uL (0.0-0.2); ABSOLUTE LYMPHOCYTES (AUTO) 1.8 10^3/uL (0.5-4.7); ABSOLUTE MONOCYTES (AUTO) 0.3 10^3/uL (0.1-1.4); ABSOLUTE NEUT (AUTO) 15.2 10^3/uL (1.7-8.2); BASOPHILS % (AUTO) 0.6 % (0-2); HEMATOCRIT 36.3 % (36.0-47.0); LYMPHOCYTES % (AUTO) 10.3 % (13-45); MEAN CORPUSCULAR HEMOGLOBIN 29.8 pg (27.0-33.4); MEAN CORPUSCULAR HGB CONC 33.8 g/dL (32.0-36.0); MEAN CORPUSCULAR VOLUME 88 fl (80-97); MONOCYTES % (AUTO) 1.9 % (3-13); PLATELET COUNT 264 10^3/uL (150-450); RED BLOOD COUNT 4.12 10^6/uL (3.72-5.28); RED CELL DISTRIBUTION WIDTH 17.3 % (11.5-14.0); SEGMENTED NEUTROPHILS % (AUTO) 87.2 % (42-78); TOTAL CELLS COUNTED % (AUTO) 100 %; WHITE BLOOD COUNT 17.5 10^3/uL (4.0-10.5)
[2020-03-08 06:43] LABS: HEMOGLOBIN 12.3 g/dL (12.0-15.5)
[2020-03-08 07:00] LABS: ALKALINE PHOSPHATASE 94 U/L (38-126); ANION GAP 8 (5-19); ASPARTATE AMINO TRANSFERASE 14 U/L (14-36); BILIRUBIN,DIRECT 0.3 mg/dL (0.0-0.4); BILIRUBIN,TOTAL 0.4 mg/dL (0.2-1.3); BLOOD UREA NITROGEN 8 mg/dL (7-20); CARBON DIOXIDE 22 mmol/L (22-30); CHLORIDE 104 mmol/L (98-107); CHOLESTEROL 266.35 mg/dL (0-200); GLUCOSE 247 mg/dL (75-110); POTASSIUM 3.7 mmol/L (3.6-5.0); TOTAL PROTEIN 6.1 g/dL (6.3-8.2); TRIGLYCERIDES 354 mg/dL (<150)
[2020-03-08 07:11] LABS: DIRECT LDL 202 mg/dL (<100); TROPONIN I 0.024 ng/mL
[2020-03-08 07:12] LABS: VLDL CHOLESTEROL 70.8 mg/dL (10-31)
[2020-03-08] MEDS ORDERED: MAGNESIUM SULFATE/D5W 1 GM/100 ML RTUPB IV ONE (10:00)
[2020-03-08] MEDS ORDERED: ACYCLOVIR SODIUM INJ/PF 500 MG/10 ML SDV IV SCH (10:00)
[2020-03-08] MEDS ORDERED: VANCOMYCIN HCL INJ 1000 MG VIAL IV SCH (10:00)
[2020-03-08] MEDS ORDERED: (PENDING PHARMACY ID) (Dulaglutide [Trulicity] 0.75 MG) SQ SCH (10:30)
--- NOTE | 2020-03-08 10:39 | PDOC PROGRESS REPORT ---
Subjective Progress Note for:: 03/08/20 Subjective:: 44 year old female with history of hypertension, diabetes mellitus, anxiety, depression,, PE on Xarelto right SANJANA was brought to the emergency room by family members with complaints of altered mental status. As per the patient's son she called him screaming and crying that she is in pain unable to take anything more than the family called EMS was brought to the emergency room for further evaluation. In the emergency room work-up indicates WBC count of 21,600, CT of the neck, head, CT head came back negative. X-ray was negative for pneumonia. Urine tox is negative. Urine analysis pending. Lactic acid level is pending. Again no fever was noticed in the emergency room. Medical consult was called for altered mental status and questionable meningitis. 03/08/20200705-99-eypu-old female with history of hypertension, diabetes mellitus, anxiety, depression pulmonary embolism on Xarelto admitted for altered mental status. Plan is to rule out meningitis. To hold Lovenox today and to do a lumbar puncture first thing in the morning. WBC count improved. Afebrile. MRI of the brain is negative for acute pathology. CTA head and neck came back negative. Reason For Visit: ALTERED MENTAL STATUS Physical Exam Vital Signs: Temp Pulse Resp BP Pulse Ox 98.2 F 95 16 135/68 H 95 03/08/20 07:41 03/08/20 09:56 03/08/20 09:56 03/08/20 07:41 03/08/20 09:56 Intake & Output 03/07/20 03/08/20 03/09/20 06:59 06:59 06:59 Intake Total 1870 Output Total 625 Balance 1245 Weight 101 kg General appearance: PRESENT: no acute distress, obese Head exam: PRESENT: atraumatic Eye exam: PRESENT: PERRLA Mouth exam: PRESENT: moist, tongue midline Teeth exam: PRESENT: poor dentation Neck exam: ABSENT: carotid bruit, JVD, lymphadenopathy, thyromegaly Respiratory exam: PRESENT: decreased breath sounds Cardiovascular exam: PRESENT: RRR. ABSENT: diastolic murmur, rubs, systolic murmur Pulses: PRESENT: normal dorsalis pedis pul GI/Abdominal exam: PRESENT: normal bowel sounds, soft. ABSENT: distended, guarding, mass, organolmegaly, rebound, tenderness Rectal exam: PRESENT: deferred Extremities exam: PRESENT: full ROM. ABSENT: calf tenderness, clubbing, pedal edema Neurological exam: PRESENT: alert, awake, oriented to person, oriented to place, oriented to time, oriented to situation, CN II-XII grossly intact. ABSENT: motor sensory deficit Psychiatric exam: PRESENT: appropriate affect, normal mood. ABSENT: homicidal ideation, suicidal ideation Results Laboratory Results: 03/08/20 06:17 03/08/20 06:17 03/07/20 03/07/20 03/07/20 12:35 12:35 13:20 WBC 21.6 H RBC 5.13 Hgb 15.2 Hct 45.2 MCV 88 MCH 29.5 MCHC 33.5 RDW 17.4 H Plt Count 347 Seg Neutrophils % Not Reportable Carbonic Acid HCO3/H2CO3 Ratio ABG pH ABG pCO2 ABG pO2 ABG HCO3 ABG O2 Saturation ABG Base Excess FiO2 Sodium 136.2 L Potassium 4.4 Chloride 101 Carbon Dioxide 25 Anion Gap 10 BUN 9 Creatinine 0.51 L Est GFR ( Amer) > 60 Glucose 255 H Lactic Acid Calcium 9.3 Magnesium Total Bilirubin 0.5 AST 39 H Alkaline Phosphatase 149 H Ammonia Total Protein 7.6 Albumin 4.0 Triglycerides Cholesterol LDL Cholesterol Direct VLDL Cholesterol HDL Cholesterol TSH Urine Color Cancelled Urine Appearance Cancelled Urine pH Cancelled Ur Specific [place] Cancelled Urine Protein Cancelled Urine Glucose (UA) Cancelled Urine Ketones Cancelled Urine Blood Cancelled Urine Nitrite Cancelled Ur Leukocyte Esterase Cancelled Urine WBC (Auto) Cancelled Urine RBC (Auto) Cancelled 03/07/20 03/07/20 03/07/20 15:50 16:44 17:32 WBC RBC Hgb Hct MCV MCH MCHC RDW Plt Count Seg Neutrophils % Carbonic Acid 0.88 L HCO3/H2CO3 Ratio 24:1 ABG pH 7.49 H ABG pCO2 29.1 L ABG pO2 68.7 L ABG HCO3 21.7 ABG O2 Saturation 95.2 ABG Base Excess -0.5 FiO2 ROOM AIR Sodium Potassium Chloride Carbon Dioxide Anion Gap BUN Creatinine Est GFR ( Amer) Glucose Lactic Acid 3.9 H Calcium Magnesium Total Bilirubin AST Alkaline Phosphatase Ammonia Total Protein Albumin Triglycerides Cholesterol LDL Cholesterol Direct VLDL Cholesterol HDL Cholesterol TSH Urine Color YELLOW Urine Appearance CLEAR Urine pH 5.0 Ur Specific [place] 1.053 Urine Protein 100 H Urine Glucose (UA) 150 H Urine Ketones TRACE H Urine Blood NEGATIVE Urine Nitrite NEGATIVE Ur Leukocyte Esterase NEGATIVE Urine WBC (Auto) 1 Urine RBC (Auto) 3 03/08/20 03/08/20 03/08/20 06:05 06:17 06:17 WBC 17.5 H RBC 4.12 Hgb 12.3 D Hct 36.3 MCV 88 MCH 29.8 MCHC 33.8 RDW 17.3 H Plt Count 264 Seg Neutrophils % 87.2 H Carbonic Acid HCO3/H2CO3 Ratio ABG pH ABG pCO2 ABG pO2 ABG HCO3 ABG O2 Saturation ABG Base Excess FiO2 Sodium 133.8 L Potassium 3.7 Chloride 104 Carbon Dioxide 22 Anion Gap 8 BUN 8 Creatinine 0.51 L Est GFR ( Amer) > 60 Glucose 247 H Lactic Acid Calcium 8.0 L Magnesium 1.5 L Total Bilirubin 0.4 AST 14 Alkaline Phosphatase 94 Ammonia Total Protein 6.1 L Albumin 3.0 L Triglycerides 354 H Cholesterol 266.35 H LDL Cholesterol Direct 202 H VLDL Cholesterol 70.8 H HDL Cholesterol 39 L TSH Urine Color YELLOW Urine Appearance TURBID Urine pH 5.0 Ur Specific [place] 1.034 Urine Protein 100 H Urine Glucose (UA) 50 H Urine Ketones 20 H Urine Blood NEGATIVE Urine Nitrite NEGATIVE Ur Leukocyte Esterase NEGATIVE Urine WBC (Auto) Urine RBC (Auto) 4 03/08/20 03/08/20 06:17 06:17 WBC RBC Hgb Hct MCV MCH MCHC RDW Plt Count Seg Neutrophils % Carbonic Acid HCO3/H2CO3 Ratio ABG pH ABG pCO2 ABG pO2 ABG HCO3 ABG O2 Saturation ABG Base Excess FiO2 Sodium Potassium Chloride Carbon Dioxide Anion Gap BUN Creatinine Est GFR ( Amer) Glucose Lactic Acid Calcium Magnesium Total Bilirubin AST Alkaline Phosphatase Ammonia 9.0 Total Protein Albumin Triglycerides Cholesterol LDL Cholesterol Direct VLDL Cholesterol HDL Cholesterol TSH 0.52 Urine Color Urine Appearance Urine pH Ur Specific [place] Urine Protein Urine Glucose (UA) Urine Ketones Urine Blood Urine Nitrite Ur Leukocyte Esterase Urine WBC (Auto) Urine RBC (Auto) 03/07/20 03/07/20 03/07/20 12:35 16:44 22:05 Troponin I < 0.012 < 0.012 0.023 NT-Pro-B Natriuret Pep 03/08/20 06:17 Troponin I 0.024 NT-Pro-B Natriuret Pep 1730 H Impressions: Head MRI 03/07/20 00:00 IMPRESSION: NORMAL MRI OF THE BRAIN WITHOUT INTRAVENOUS GADOLINIUM CONTRAST. EVIDENCE OF ACUTE STROKE: NO. Chest X-Ray 03/07/20 12:07 IMPRESSION: NO ACUTE RADIOGRAPHIC FINDING IN THE CHEST. Head CT 03/07/20 12:07 IMPRESSION: NORMAL BRAIN CT WITHOUT CONTRAST. EVIDENCE OF ACUTE STROKE: NO. Head CTA 03/07/20 13:36 IMPRESSION: NO CTA EVIDENCE OF STENOSIS OR ANEURYSM OF THE [place]. Neck CTA 03/07/20 13:39 IMPRESSION: No aneurysm, stenosis, or dissection of the extracranial carotid and vertebral arteries. Assessment and Plan - Diagnosis (1) Altered mental status Is this a current diagnosis for this admission?: Yes Plan: 03/07/2020-patient is going to be admitted to [facility] for altered mental status. Started on IV Rocephin 2 g daily, levofloxacin 750 mg IV daily, urine analysis blood cultures requested. GI prophylaxis DVT initiated. Patient was placed on Lovenox 1 mg subcu per KG every 12 hours. Patient was started on acyclovir is on 50 mg IV daily. To start the patient dexamethasone 4 mg daily. Neurochecks every 4 hours requested. Aspiration fall seizure precautions requested. CT head is negative CT of the neck is negative for stroke MRI of the brain without contrast was requested today. alvarado Catheter will be requested. 03/08/2020-altered mental status is resolving. CT of the head and neck negative. MRI of the brain is negative. Lumbar puncture is pending. Plan is to continue IV antibiotic therapy and to restart her home medications at this time. (2) Leukocytosis Is this a current diagnosis for this admission?: Yes Plan: 03/07/2020-patient came in with WBC count of 21,600 and altered mental status. To rule out meningitis. Started on Rocephin 2 g IV daily, levofloxacin 750 mg IV daily and acyclovir 750 mg IV daily. To start on dexamethasone 4 mg daily. To repeat the labs tomorrow. Aspiration fall seizure precautions requested. 03/08/2020-WBC count improved to 17,500 today. No fever noticed. Blood pressures are stable. (3) SIRS (systemic inflammatory response syndrome) Is this a current diagnosis for this admission?: Yes Plan: 03/07/2020-patient came in with elevated WBC count and altered mental status. Lactic acid level is pending. Afebrile. Started on IV antibiotic therapy. (4) HTN (hypertension) Is this a current diagnosis for this admission?: No Plan: 03/07/2020-patient has history of chronic essential hypertension on lisinoprilhydrochlorothiazide. To keep the patient n.p.o. and started on IV hydralazine 10 mg every 4 hours as needed for systolic blood pressure more than 170. 03/08/2020-patient has history of chronic essential hypertension blood pressure is 140/51. Plan is to restart her home medications. (5) Diabetes Qualifiers: Diabetes mellitus type: type 2 Is this a current diagnosis for this admission?: Yes Plan: 03/07/2020-patient has history of type 2 diabetes mellitus. Presently n.p.o. started on insulin sliding scale before meals and at bedtime.to check for hemoglobin a1c 03/08/20-patient has history of type 2 diabetes mellitus latest blood sugar is 230. To start her back on diabetic diet and continue insulin sliding scale before meals and at bedtime. Latest blood sugar is 230. Hemoglobin A1c is 8.7. Diet exercise weight loss lifestyle modifications discussed with the patient. (6) Meningitis Is this a current diagnosis for this admission?: Yes Plan: 03/07/2020-patient is on Xarelto at home which is going to be on hold. Started on Lovenox treatment dose. To arrange for LP in the next 24 to 48 hours. Started on IV Rocephin 2 g daily, to start on IV vancomycin pharmacy is going to dose the medication at this time. Started on acyclovir 750 mg IV every 8 hours. To start on dexamethasone 4 mg iv twice daily. 03/08/2020-patient is going for lumbar puncture tomorrow. Presently on IV Rocephin, vancomycin. pt Is also on acyclovir. (7) Obesity (BMI 30-39.9) Is this a current diagnosis for this admission?: No - Time Anticipated Discharge Disposition: Home, Self Care Anticipated Discharge Timeframe: within 48 hours
[2020-03-08] MEDS: DEXAMETHASONE SOD PHOSPHATE INJ 4 MG/1 ML VIAL IV SCH ×2 (10:56→22:11)
[2020-03-08] MEDS: CEFTRIAXONE 2 GM/D5W RTU 2 GM/50 ML RTUPB IV SCH (10:57)
[2020-03-08] MEDS: NICOTINE 21 MG/24 HR PATCH.TD24 TD SCH (11:07)
[2020-03-08] MEDS: ENOXAPARIN SODIUM INJ 100 MG/1 ML DISP.SYRIN SUBCUT SCH ×2 (13:02→22:11)
[2020-03-08] MEDS: INSULIN REG, HUMAN 100 UNIT/ML 3 ML VIAL (PYX) SUBCUT SCH ×4 (13:07→21:48)
--- NOTE | 2020-03-08 14:20 | CDI QUERY ---
CDI Query CDI Review: Dear Provider, Please document in PROGRESS NOTES and D/C summary if you agree with the clinical data: ACUTE METABOLIC ENCEPHALOPATHY, resolving? ACUTE TOXIC ENCEPHALOPATHY, resolving? OTHER? Pt came in with altered mental status rule out meningitis condition improving after intervention Thanks, Juany Manuel, MIKAEL [phone]
[2020-03-08] MEDS: FAMOTIDINE INJ/PF 20 MG/2 ML SDV IV SCH (15:08)
[2020-03-08] MEDS: GABAPENTIN 400 MG CAPSULE PO SCH ×3 (15:09→22:11)
--- NOTE | 2020-03-08 16:33 | RADIOLOGY REPORT (SQ) ---
EXAM DESCRIPTION: CTA ABDOMEN/PELVIS W WO IMAGES COMPLETED DATE/TIME: 03/08/2020 3:41 pm REASON FOR STUDY: pain COMPARISON: None. TECHNIQUE: CT scan of the body and lower extremities performed with intravenous contrast using helic al scanning technique with dynamic intravenous contrast injection. Images reviewed with lung, soft ti ssue, and bone windows. Reconstructed coronal and sagittal MPR images reviewed. All images stored on PACS. Advanced 3D imaging as volume-rendering, MIPs, SSD performed? yes All CT scanners at this facility use dose modulation, iterative reconstruction, and/or weight based d osing when appropriate to reduce radiation dose to as low as reasonably achievable (ALARA). [facility]: Dose Right [facility]: CareDose [facility]: Dose Right [facility]: Teradose 4D [facility]: [place] CONTRAST TYPE AND DOSE: contrast/concentration: Isovue 350.00 mmol/ml; Total Contrast Delivered: 100 .0 ml; Total Saline Delivered: 90.0 ml RENAL FUNCTION: BUN 8, creatinine 0.51 LIMITATIONS: None. FINDINGS: NON-CONTRASTED IMAGING: Post contrast images only. POST-CONTRAST IMAGING: AORTA AND VESSELS: No aneurysm or dissection. The celiac axis, SMA and renal arteries are patent. T he left common and external iliac artery are patent the right common and external iliac artery are oc cluded. ICD no significant collateral vessels. This could be a chronic occlusion but with no collat eralization identified acute occlusion cannot be excluded. There are some lumbar collaterals which p rovide inflow into the internal iliac artery. The subsequently feel the profunda femoral on the righ t. LUNG BASES: No significant findings. No nodules or infiltrates. LIVER: Incompletely visualized. No focal masses. There is hepatomegaly. SPLEEN: Normal size. No focal lesions. PANCREAS: No masses. No significant calcifications. No adjacent inflammation or peripancreatic fluid collections. Pancreatic duct not dilated. GALLBLADDER: Surgically absent. ADRENAL GLANDS: Left adrenal adenoma. RIGHT KIDNEY AND URETER: No mass, calculi or urinary tract obstruction. LEFT KIDNEY AND URETER: No mass, calculi or urinary tract obstruction. RETROPERITONEUM: No retroperitoneal adenopathy, hemorrhage or masses. BOWEL AND PERITONEAL CAVITY: No masses or inflammatory changes. No free fluid or peritoneal masses. APPENDIX: Normal. ABDOMINAL WALL: No masses. No hernias. BONY STRUCTURES: No significant or acute findings. 3-D IMAGING: Confirms the above findings. OTHER: Small left adnexal lesion most likely ovarian cyst. The bladder is decompressed by Morrow cath eter. LOWER EXTREMITIES: RIGHT LEG: FEMORAL ARTERIES: Flow in the profunda femoral only. Common femoral artery is occluded POPLITEAL ARTERY: Prior above the knee amputation. LEFT LEG: FEMORAL ARTERIES: No occlusions or significant stenoses. POPLITEAL ARTERY: No aneurysm. No occlusions or significant stenoses. TIBIOPERONEAL TRUNK AND RUNOFF VESSELS: Small infrapopliteal vessels. OTHER: No other significant finding. 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 This could be acute o r chronic. Clinical correlation is needed. No hemodynamically significant stenosis on the left. Hepatomegaly. COMMENT: This report was called to RENÉE HITCHCOCK MD at16:27 on 03/08/2020. TECHNICAL DOCUMENTATION: JOB ID: [id number] Quality ID # [id number]: Final reports with documentation of one or more dose reduction techniques (e.g., Au tomated exposure control, adjustment of the mA and/or kV according to patient size, use of iterative reconstruction technique) 2010 [employer]- All Rights Reserved Reading location - IP/workstation name: [email or web address]-[email or web address] / [email or web address]
[2020-03-08] MEDS: DULOXETINE HCL 30 MG CAPSULE.DR PO SCH (18:32)
[2020-03-08] MEDS: PANTOPRAZOLE SODIUM 40 MG TABLET.DR PO SCH (18:32)
[2020-03-08 18:40] LABS: APPEARANCE,URINE CLOUDY; BILIRUBIN,URINE NEGATIVE (NEGATIVE); COLOR,URINE YELLOW; GLUCOSE, URINE NEGATIVE (NEGATIVE); KETONES,URINE 20 mg/dL (NEGATIVE); LEUKOCYTE ESTERASE,URINE NEGATIVE (NEGATIVE); NITRITE,URINE NEGATIVE (NEGATIVE); PROTEIN,URINE 30 mg/dL (NEGATIVE); URINE SPECIFIC GRAVITY 1.048; UROBILINOGEN,URINE NEGATIVE mg/dL (<2.0)
[2020-03-08 20:04] LABS: VANCOMYCIN,TROUGH 7.3 ug/mL (5.0-20.0)
[2020-03-08] MEDS: ATORVASTATIN CALCIUM 20 MG TABLET PO SCH (22:11)
[2020-03-09] MEDS ORDERED: VANCOMYCIN HCL 1,500 MG in DEXTROSE 5%-WATER 250 ML IV SCH (04:00)
[2020-03-09] MEDS: PANTOPRAZOLE SODIUM 40 MG TABLET.DR PO SCH ×2 (05:14→17:23)
[2020-03-09] MEDS: ACYCLOVIR SODIUM 700 MG in NORMAL SALINE 100 ML IV SCH (05:14)
[2020-03-09 06:52] LABS: ABSOLUTE BASOPHILS # (AUTO) 0.1 10^3/uL (0.0-0.2); ABSOLUTE LYMPHOCYTES (AUTO) 1.6 10^3/uL (0.5-4.7); ABSOLUTE MONOCYTES (AUTO) 0.3 10^3/uL (0.1-1.4); ABSOLUTE NEUT (AUTO) 9.1 10^3/uL (1.7-8.2); HEMATOCRIT 35.6 % (36.0-47.0); HEMOGLOBIN 12.1 g/dL (12.0-15.5); LYMPHOCYTES % (AUTO) 14.3 % (13-45); MEAN CORPUSCULAR HEMOGLOBIN 29.9 pg (27.0-33.4); MEAN CORPUSCULAR HGB CONC 33.9 g/dL (32.0-36.0); MEAN CORPUSCULAR VOLUME 88 fl (80-97); MONOCYTES % (AUTO) 2.8 % (3-13); PLATELET COUNT 245 10^3/uL (150-450); RED BLOOD COUNT 4.04 10^6/uL (3.72-5.28); RED CELL DISTRIBUTION WIDTH 16.8 % (11.5-14.0); SEGMENTED NEUTROPHILS % (AUTO) 81.9 % (42-78); TOTAL CELLS COUNTED % (AUTO) 100 %; WHITE BLOOD COUNT 11.2 10^3/uL (4.0-10.5)
[2020-03-09 07:20] LABS: ALBUMIN 3.2 g/dL (3.5-5.0); ALKALINE PHOSPHATASE 92 U/L (38-126); ANION GAP 9 (5-19); ASPARTATE AMINO TRANSFERASE 15 U/L (14-36); BILIRUBIN,DIRECT 0.3 mg/dL (0.0-0.4); BILIRUBIN,TOTAL 0.3 mg/dL (0.2-1.3); BLOOD UREA NITROGEN 9 mg/dL (7-20); CALCIUM 8.5 mg/dL (8.4-10.2); CARBON DIOXIDE 22 mmol/L (22-30); CHLORIDE 104 mmol/L (98-107); GLUCOSE 273 mg/dL (75-110); POTASSIUM 4.1 mmol/L (3.6-5.0); TOTAL PROTEIN 6.3 g/dL (6.3-8.2)
[2020-03-09] MEDS: INSULIN REG, HUMAN 100 UNIT/ML 3 ML VIAL (PYX) SUBCUT SCH ×4 (08:11→21:54)
[2020-03-09] MEDS ORDERED: FERROUS SULFATE DRIED 160 MG PO SCH (10:00)
[2020-03-09] MEDS: CEFTRIAXONE 2 GM/D5W RTU 2 GM/50 ML RTUPB IV SCH (10:26)
[2020-03-09] MEDS: GABAPENTIN 400 MG CAPSULE PO SCH ×4 (10:27→21:54)
[2020-03-09] MEDS: FERROUS SULFATE 325 MG TABLET PO SCH (10:28)
[2020-03-09] MEDS: ARIPIPRAZOLE 2 MG TABLET PO SCH (10:28)
[2020-03-09] MEDS: DEXAMETHASONE SOD PHOSPHATE INJ 4 MG/1 ML VIAL IV SCH (10:29)
[2020-03-09] MEDS: DULOXETINE HCL 30 MG CAPSULE.DR PO SCH ×2 (10:29→17:25)
[2020-03-09] MEDS ORDERED: HYDROCODONE/ACETAMINOPHEN 10-325 MG TABLET PO PRN (10:47)
--- NOTE | 2020-03-09 10:57 | PDOC PROGRESS REPORT ---
Subjective Progress Note for:: 03/09/20 Subjective:: 44 year old female with history of hypertension, diabetes mellitus, anxiety, depression,, PE on Xarelto right BKA was brought to the emergency room by family members with complaints of altered mental status. As per the patient's son she called him screaming and crying that she is in pain unable to take anything more than the family called EMS was brought to the emergency room for further evaluation. In the emergency room work-up indicates WBC count of 21,600, CT of the neck, head, CT head came back negative. X-ray was negative for pneumonia. Urine tox is negative. Urine analysis pending. Lactic acid level is pending. Again no fever was noticed in the emergency room. Medical consult was called for altered mental status and questionable meningitis. 03/[id number]-old female with history of hypertension, diabetes mellitus, anxiety, depression pulmonary embolism on Xarelto admitted for altered mental status. Plan is to rule out meningitis. To hold Lovenox today and to do a lumbar puncture first thing in the morning. WBC count improved. Afebrile. MRI of the brain is negative for acute pathology. CTA head and neck came back negative. 03/[id number]-old female admitted with altered mental status which was resolved. Alert awake communicating well. No signs of meningeal symptoms present. Patient is given the history of stress at home including financial stressors. Plan is to cancel the LP canceled the CT of the chest today. Patient is also given the history of blood clots affecting the circulation in the right lower leg and has a right AKA. 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 Reason For Visit: ALTERED MENTAL STATUS Physical Exam Vital Signs: Temp Pulse Resp BP Pulse Ox 97.7 F 67 15 144/81 H 97 03/09/20 07:27 03/09/20 08:00 03/09/20 08:00 03/09/20 08:00 03/09/20 08:00 Intake & Output 03/08/20 03/09/20 03/10/20 06:59 06:59 06:59 Intake Total 2120 2060 Output Total 625 1700 Balance 1495 360 Weight 101 kg 106.1 kg General appearance: PRESENT: no acute distress, well-developed Head exam: PRESENT: atraumatic Eye exam: PRESENT: PERRLA Mouth exam: PRESENT: dry mucosa Teeth exam: PRESENT: poor dentation Neck exam: ABSENT: carotid bruit, JVD, lymphadenopathy, thyromegaly Respiratory exam: PRESENT: decreased breath sounds Cardiovascular exam: PRESENT: RRR. ABSENT: diastolic murmur, rubs, systolic murmur GI/Abdominal exam: PRESENT: normal bowel sounds, soft. ABSENT: distended, guarding, mass, organolmegaly, rebound, tenderness Rectal exam: PRESENT: deferred Extremities exam: PRESENT: other - Right AKA Neurological exam: PRESENT: alert, awake, oriented to person, oriented to place, oriented to time, oriented to situation, CN II-XII grossly intact. ABSENT: motor sensory deficit Results Laboratory Results: 03/09/20 05:41 03/09/20 05:41 03/08/20 03/09/20 03/09/20 18:09 05:41 05:41 WBC 11.2 H RBC 4.04 Hgb 12.1 Hct 35.6 L MCV 88 MCH 29.9 MCHC 33.9 RDW 16.8 H Plt Count 245 Seg Neutrophils % 81.9 H Sodium 135.3 L Potassium 4.1 Chloride 104 Carbon Dioxide 22 Anion Gap 9 BUN 9 Creatinine 0.51 L Est GFR ( Amer) > 60 Glucose 273 H Calcium 8.5 Magnesium 1.8 Total Bilirubin 0.3 AST 15 Alkaline Phosphatase 92 Total Protein 6.3 Albumin 3.2 L Urine Color YELLOW Urine Appearance CLOUDY Urine pH 6.0 Ur Specific [place] 1.048 Urine Protein 30 H Urine Glucose (UA) NEGATIVE Urine Ketones 20 H Urine Blood NEGATIVE Urine Nitrite NEGATIVE Ur Leukocyte Esterase NEGATIVE Urine WBC (Auto) 1 Urine RBC (Auto) 3 03/07/20 03/07/20 03/07/20 12:35 16:44 22:05 Troponin I < 0.012 < 0.012 0.023 NT-Pro-B Natriuret Pep 03/08/20 06:17 Troponin I 0.024 NT-Pro-B Natriuret Pep 1730 H Impressions: Head MRI 03/07/20 00:00 IMPRESSION: NORMAL MRI OF THE BRAIN WITHOUT INTRAVENOUS GADOLINIUM CONTRAST. EVIDENCE OF ACUTE STROKE: NO. Chest X-Ray 03/07/20 12:07 IMPRESSION: NO ACUTE RADIOGRAPHIC FINDING IN THE CHEST. Head CT 03/07/20 12:07 IMPRESSION: NORMAL BRAIN CT WITHOUT CONTRAST. EVIDENCE OF ACUTE STROKE: NO. Head CTA 03/07/20 13:36 IMPRESSION: NO CTA EVIDENCE OF STENOSIS OR ANEURYSM OF THE [place]. Neck CTA 03/07/20 13:39 IMPRESSION: No aneurysm, stenosis, or dissection of the extracranial carotid and vertebral arteries. 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 This could be acute or chronic. Clinical correlation is needed. No hemodynamically significant stenosis on the left. Hepatomegaly. Assessment and Plan - Diagnosis (1) Altered mental status Is this a current diagnosis for this admission?: Yes Plan: 03/07/2020-patient is going to be admitted to [facility] for altered mental status. Started on IV Rocephin 2 g daily, levofloxacin 750 mg IV daily, urine analysis blood cultures requested. GI prophylaxis DVT initiated. Patient was placed on Lovenox 1 mg subcu per KG every 12 hours. Patient was started on acyclovir is on 50 mg IV daily. To start the patient dexamethasone 4 mg daily. Neurochecks every 4 hours requested. Aspiration fall seizure precautions requested. CT hea d is negative CT of the neck is negative for stroke MRI of the brain without contrast was requested today. alvarado Catheter will be requested. 03/08/2020-altered mental status is resolving. CT of the head and neck negative. MRI of the brain is negative. Lumbar puncture is pending. Plan is to continue IV antibiotic therapy and to restart her home medications at this time. 03/09/20-altered mental status is resolved. Communicating well. Complaining of stress at home leading to her bizarre behavior during the hospital admission. Acute metabolic encephalopathy is resolved. (2) Leukocytosis Is this a current diagnosis for this admission?: Yes Plan: 03/07/2020-patient came in with WBC count of 21,600 and altered mental status. To rule out meningitis. Started on Rocephin 2 g IV daily, levofloxacin 750 mg IV daily and acyclovir 750 mg IV daily. To start on dexamethasone 4 mg daily. To repeat the labs tomorrow. Aspiration fall seizure precautions requested. 03/08/2020-WBC count improved to 17,500 today. No fever noticed. Blood pressures are stable. 03/09/2020-WBC count is 11,200. Getting close to normal limits. Cultures are negative. Meningitis is unlikely. Lumbar puncture will be on hold. Discontinue acyclovir. To continue IV Rocephin at this time. Discontinue vancomycin. (3) SIRS (systemic inflammatory response syndrome) Is this a current diagnosis for this admission?: Yes Plan: 03/07/2020-patient came in with elevated WBC count and altered mental status. Lactic acid level is pending. Afebrile. Started on IV antibiotic therapy. (4) HTN (hypertension) Is this a current diagnosis for this admission?: No Plan: 03/07/2020-patient has history of chronic essential hypertension on lisinoprilhydrochlorothiazide. To keep the patient n.p.o. and started on IV hydralazine 10 mg every 4 hours as needed for systolic blood pressure more than 170. 03/08/2020-patient has history of chronic essential hypertension blood pressure is 140/51. Plan is to restart her home medications. 03/09/2020-blood pressure today is 147/73. Plan is to resume her home medica tions. (5) Diabetes Qualifiers: Diabetes mellitus type: type 2 Is this a current diagnosis for this admission?: Yes Plan: 03/07/2020-patient has history of type 2 diabetes mellitus. Presently n.p.o. st arted on insulin sliding scale before meals and at bedtime.to check for hemoglobin a1c 03/08/20-patient has history of type 2 diabetes mellitus latest blood sugar is 230. To start her back on diabetic diet and continue insulin sliding scale before meals and at bedtime. Latest blood sugar is 230. Hemoglobin A1c is 8.7. Diet exercise weight loss lifestyle modifications discussed with the patient. 03/09/20-patient has history of type 2 diabetes mellitus. Hemoglobin A1c is 8.7. Blood sugar is 273. Plan is to continue insulin sliding scale before meals and at bedtime, to continue her home medications. Patient is taking glimepiride at home. (6) Meningitis Is this a current diagnosis for this admission?: Yes Plan: 03/07/2020-patient is on Xarelto at home which is going to be on hold. Started on Lovenox treatment dose. To arrange for LP in the next 24 to 48 hours. Started on IV Rocephin 2 g daily, to start on IV vancomycin pharmacy is going to dose the medication at this time. Started on acyclovir 750 mg IV every 8 hours. To start on dexamethasone 4 mg iv twice daily. 03/08/2020-patient is going for lumbar puncture tomorrow. Presently on IV Rocephin, vancomycin. pt Is also on acyclovir. 03/09/20-patient alert awake oriented. No neck stiffness present. Meningitis unlikely. Afebrile. Plan is to discontinue acyclovir discontinue vancomycin and discontinue dexamethasone to continue IV Rocephin at this time. (7) Obesity (BMI 30-39.9) Is this a current diagnosis for this admission?: No - Time Anticipated Discharge Disposition: Home, Self Care Anticipated Discharge Timeframe: within 48 hours
[2020-03-09] MEDS: NICOTINE 21 MG/24 HR PATCH.TD24 TD SCH (12:06)
[2020-03-09] MEDS ORDERED: RIVAROXABAN 10 MG TABLET PO SCH (17:00)
[2020-03-09] MEDS: GLYBURIDE 2.5 MG TABLET PO SCH (17:28)
[2020-03-09] MEDS: ATORVASTATIN CALCIUM 20 MG TABLET PO SCH (21:54)
[2020-03-09] MEDS ORDERED: TEMAZEPAM 7.5 MG CAPSULE PO PRN (23:33)
[2020-03-10 04:39] LABS: APPEARANCE,URINE SLIGHTLY-CLOUDY; BILIRUBIN,URINE NEGATIVE (NEGATIVE); COLOR,URINE YELLOW; GLUCOSE, URINE 50 mg/dL (NEGATIVE); KETONES,URINE NEGATIVE (NEGATIVE); LEUKOCYTE ESTERASE,URINE SMALL (NEGATIVE); NITRITE,URINE NEGATIVE (NEGATIVE); PROTEIN,URINE 100 mg/dL (NEGATIVE); URINE SPECIFIC GRAVITY 1.038; UROBILINOGEN,URINE NEGATIVE mg/dL (<2.0)
[2020-03-10] MEDS: PANTOPRAZOLE SODIUM 40 MG TABLET.DR PO SCH (05:24)
[2020-03-10 05:32] LABS: HEMATOCRIT 34.7 % (36.0-47.0); HEMOGLOBIN 11.7 g/dL (12.0-15.5); MEAN CORPUSCULAR HEMOGLOBIN 29.6 pg (27.0-33.4); MEAN CORPUSCULAR HGB CONC 33.7 g/dL (32.0-36.0); MEAN CORPUSCULAR VOLUME 88 fl (80-97); PLATELET COUNT 242 10^3/uL (150-450); RED BLOOD COUNT 3.96 10^6/uL (3.72-5.28); RED CELL DISTRIBUTION WIDTH 16.5 % (11.5-14.0); WHITE BLOOD COUNT 12.5 10^3/uL (4.0-10.5)
[2020-03-10] MEDS ORDERED: VANCOMYCIN HCL INJ 1000 MG VIAL IV SCH (10:00)
[2020-03-10] MEDS: GLYBURIDE 2.5 MG TABLET PO SCH (11:07)
[2020-03-10] MEDS: GABAPENTIN 400 MG CAPSULE PO SCH (11:08)
[2020-03-10] MEDS: FERROUS SULFATE 325 MG TABLET PO SCH (11:08)
[2020-03-10] MEDS: NICOTINE 21 MG/24 HR PATCH.TD24 TD SCH (11:08)
[2020-03-10] MEDS: DULOXETINE HCL 30 MG CAPSULE.DR PO SCH (11:08)
[2020-03-10] MEDS: ARIPIPRAZOLE 2 MG TABLET PO SCH (11:08)
[2020-03-10] MEDS ORDERED: AMOXICILLIN TR/POT CLAVULANATE 875-125 MG TAB PO SCH (11:30)
[2020-03-10 12:22] LABS: VANCOMYCIN,TROUGH < 5.0 ug/mL (5.0-20.0)
[2020-03-10] MEDS: INSULIN REG, HUMAN 100 UNIT/ML 3 ML VIAL (PYX) SUBCUT SCH (12:26)
[2020-03-10 12:40] VITALS: BP 138/60
--- NOTE | 2020-03-10 12:56 | PDOC DISCHARGE SUMMARY ---
Impression - Admit/DC Date/PCP Admission Date/Primary Care Provider: 03/07/20 15:39 ANNIE LIVE PA-C Discharge Date: 03/10/20 - Discharge Diagnosis (1) Altered mental status Is this a current diagnosis for this admission?: Yes (2) Leukocytosis Is this a current diagnosis for this admission?: Yes (3) SIRS (systemic inflammatory response syndrome) Is this a current diagnosis for this admission?: Yes (4) HTN (hypertension) Is this a current diagnosis for this admission?: No (5) Diabetes Is this a current diagnosis for this admission?: Yes (6) Meningitis Is this a current diagnosis for this admission?: Yes (7) Obesity (BMI 30-39.9) Is this a current diagnosis for this admission?: No - Assessment Summary: (1) Altered mental status Is this a current diagnosis for this admission?: Yes Plan: 03/07/2020-patient is going to be admitted to [facility] for altered mental status. Started on IV Rocephin 2 g daily, levofloxacin 750 mg IV daily, urine analysis blood cultures requested. GI prophylaxis DVT initiated. Patient was placed on Lovenox 1 mg subcu per KG every 12 hours. Patient was started on acyclovir is on 50 mg IV daily. To start the patient dexamethasone 4 mg daily. Neurochecks every 4 hours requested. Aspiration fall seizure precautions requested. CT head is negative CT of the neck is negative for stroke MRI of the brain without contrast was requested today. alvarado Catheter will be requested. 03/08/2020-altered mental status is resolving. CT of the head and neck negative. MRI of the brain is negative. Lumbar puncture is pending. Plan is to continue IV antibiotic therapy and to restart her home medications at this time. 03/09/20-altered mental status is resolved. Communicating well. Complaining of stress at home leading to her bizarre behavior during the hospital admission. Acute metabolic encephalopathy is resolved. 07/10/2019-altered mental status is resolved. Acute metabolic and colopathy resolved. (2) Leukocytosis Is this a current diagnosis for this admission?: Yes Plan: 03/07/2020-patient came in with WBC count of 21,600 and altered mental status. To rule out meningitis. Started on Rocephin 2 g IV daily, levofloxacin 750 mg IV daily and acyclovir 750 mg IV daily. To start on dexamethasone 4 mg daily. To repeat the labs tomorrow. Aspiration fall seizure precautions requested. 03/08/2020-WBC count improved to 17,500 today. No fever noticed. Blood pressures are stable. 03/09/2020-WBC count is 11,200. Getting close to normal limits. Cultures are negative. Meningitis is unlikely. Lumbar puncture will be on hold. Discontinue acyclovir. To continue IV Rocephin at this time. Discontinue vancomycin. 2520-WBC count is 12,500 today. Meningitis is very unlikely. No meningeal signs present on examination. Alert awake oriented. Blood cultures are negative. Urine culture is positive for group B strep. Patient is going home on Augmentin twice daily for 7 days. (3) SIRS (systemic inflammatory response syndrome) Is this a current diagnosis for this admission?: Yes Plan: 03/07/2020-patient came in with elevated WBC count and altered mental status. La ctic acid level is pending. Afebrile. Started on IV antibiotic therapy. 03/10/2020-patient admitted with altered mental status and elevated WBC count. Urine culture is positive for group B strep going home on Augmentin. Blood cultures are negative. Altered mental status resolved. (4) HTN (hypertension) Is this a current diagnosis for this admission?: No Plan: 03/07/2020-patient has history of chronic essential hypertension on lisinoprilhydrochlorothiazide. To keep the patient n.p.o. and started on IV hydralazine 10 mg every 4 hours as needed for systolic blood pressure more than 170. 03/08/2020-patient has history of chronic essential hypertension blood pressure is 140/51. Plan is to restart her home medications. 03/09/2020-blood pressure today is 147/73. Plan is to resume her home medications. 03/10/2020-blood pressure today's is 152/62. Patient is advised to continue her home medications. (5) Diabetes Qualifiers: Diabetes mellitus type: type 2 Is this a current diagnosis for this admission?: Yes Plan: 03/07/2020-patient has history of type 2 diabetes mellitus. Presently n.p.o. started on insulin sliding scale before meals and at bedtime.to check for hemoglobin a1c 03/08/20-patient has history of type 2 diabetes mellitus latest blood sugar is 230. To start her back on diabetic diet and continue insulin sliding scale before meals and at bedtime. Latest blood sugar is 230. Hemoglobin A1c is 8.7. Diet exercise weight loss lifestyle modifications discussed with the patient. 03/09/20-patient has history of type 2 diabetes mellitus. Hemoglobin A1c is 8.7. Blood sugar is 273. Plan is to continue insulin sliding scale before meals and at bedtime, to continue her home medications. Patient is taking glimepiride at home. 03/10/2020-patient history of type 2 diabetes mellitus. Latest pressure is 253. Diet exercise weight loss lifestyle modifications discussed with the patient. It is advised to continue home medications. (6) Meningitis Is this a current diagnosis for this admission?: Yes Plan: 03/07/2020-patient is on Xarelto at home which is going to be on hold. Started on Lovenox treatment dose. To arrange for LP in the next 24 to 48 hours. Started on IV Rocephin 2 g daily, to start on IV vancomycin pharmacy is going to dose the medication at this time. Started on acyclovir 750 mg IV every 8 hours. To start on dexamethasone 4 mg iv twice daily. 03/08/2020-patient is going for lumbar puncture tomorrow. Presently on IV Rocephin, vancomycin. pt Is also on acyclovir. 03/09/20-patient alert awake oriented. No neck stiffness present. Meningitis unlikely. Afebrile. Plan is to discontinue acyclovir discontinue vancomycin and discontinue dexamethasone to continue IV Rocephin at this time. 03/10/2020-patient came with altered mental status and elevated WBC count initially for impression from the ER is patient might have meningitis. She was started on acyclovir, IV Rocephin, IV vancomycin. Patient recovered completely. Blood cultures negative. Urine culture is positive for group B strep. Going home on Augmentin. (7) Obesity (BMI 30-39.9) Is this a current diagnosis for this admission?: No - Additional Information Resuscitation Status: Full Code Discharge Diet: Diabetic Discharge Activity: Activity As Tolerated Referrals: ANNIE LIVE PA-C [Primary Care Provider] - 03/22/20 10:15 am Prescriptions: Amoxicillin/Potassium Clav [Augmentin 875-125 Tablet] 1 tab PO Q12 14 Days #7 tablet Home Medications: Aripiprazole [Abilify 2 mg Tablet] 2 mg PO DAILY 09/22/20 Atorvastatin Calcium [Lipitor 20 mg Tablet] 20 mg PO QHS 03/07/20 Dulaglutide [Trulicity] 0.75 mg SQ .QWEEKLY 03/07/20 Duloxetine HCl [Cymbalta 30 mg Capsule.dr] 30 mg PO DAILY 03/07/20 Duloxetine HCl [Cymbalta] 60 mg PO QPM 03/07/20 Ferrous Sulfate, Dried [Slow Release Iron] 160 mg PO DAILY 03/07/20 Gabapentin [Neurontin] 800 mg PO QID 03/07/20 Glyburide [Diabeta 2.5 mg Tablet] 5 mg PO BID 03/07/20 Hydrocodone/Acetaminophen [Forest 10-325 Tablet] 1 each PO Q6HP PRN 03/07/20 Rivaroxaban [Xarelto 10 mg Tablet] 20 mg PO WSUPPER 03/07/20 Amoxicillin/Potassium Clav [Augmentin 875-125 Tablet] 1 tab PO Q12 14 Days #7 tablet 03/10/20 Insulin Regular, Human [Humulin R (Reg) Insulin 100 unit/mL] 0 - 12 unit SUBCUT ACHS unit 03/10/20 Ipratropium/Albuterol Sulfate [Duoneb 3 ml Ampul] 3 ml NEB RTQ8HP PRN vial.neb 03/10/20 History of Present Illiness History of Present Illness: ALBINA WU is a 44 year old female with history of hypertension, diabetes mellitus, anxiety, depression,, PE on Xarelto right BKA was brought to the emergency room by family members with complaints of altered mental status. As per the patient's son she called him screaming and crying that she is in pain unable to take anything more than the family called EMS was brought to the emergency room for further evaluation. In the emergency room work-up indicates WBC count of 21,600, CT of the neck, head, CT head came back negative. X-ray was negative for pneumonia. Urine tox is negative. Urine analysis pending. Lactic acid level is pending. Again no fever was noticed in the emergency room. Medical consult was called for altered mental status and questionable meningitis. Physical Exam Vital Signs: Temp Pulse Resp BP Pulse Ox 98.2 F 66 18 138/60 H 100 03/10/20 12:36 03/10/20 12:36 03/10/20 12:36 03/10/20 12:36 03/10/20 12:36 Intake & Output 03/09/20 03/10/20 03/11/20 06:59 06:59 06:59 Intake Total 2060 1760 Output Total 1700 1560 Balance 360 200 Weight 106.1 kg 107.2 kg General appearance: PRESENT: no acute distress, morbidly obese Head exam: PRESENT: atraumatic Eye exam: PRESENT: PERRLA Mouth exam: PRESENT: dry mucosa Teeth exam: PRESENT: poor dentation Neck exam: ABSENT: carotid bruit, JVD, lymphadenopathy, thyromegaly Respiratory exam: PRESENT: decreased breath sounds Cardiovascular exam: PRESENT: RRR. ABSENT: diastolic murmur, rubs, systolic murmur GI/Abdominal exam: PRESENT: normal bowel sounds, soft. ABSENT: distended, guarding, mass, organolmegaly, rebound, tenderness Rectal exam: PRESENT: deferred Extremities exam: PRESENT: full ROM. ABSENT: calf tenderness, clubbing, pedal edema Neurological exam: PRESENT: alert, awake, oriented to person, oriented to place, oriented to time, oriented to situation, CN II-XII grossly intact. ABSENT: motor sensory deficit Psychiatric exam: PRESENT: appropriate affect, normal mood. ABSENT: homicidal ideation, suicidal ideation Skin exam: PRESENT: dry, intact, warm. ABSENT: cyanosis, rash Results Laboratory Results: WBC 12.5 10^3/uL (4.0-10.5) H 03/10/20 04:54 RBC 3.96 10^6/uL (3.72-5.28) 03/10/20 04:54 Hgb 11.7 g/dL (12.0-15.5) L 03/10/20 04:54 Hct 34.7 % (36.0-47.0) L 03/10/20 04:54 MCV 88 fl (80-97) 03/10/20 04:54 MCH 29.6 pg (27.0-33.4) 03/10/20 04:54 MCHC 33.7 g/dL (32.0-36.0) 03/10/20 04:54 RDW 16.5 % (11.5-14.0) H 03/10/20 04:54 Plt Count 242 10^3/uL (150-450) 03/10/20 04:54 Lymph % (Auto) 14.3 % (13-45) 03/09/20 05:41 George % (Auto) 2.8 % (3-13) L 03/09/20 05:41 Eos % (Auto) 0.0 % (0-6) 03/09/20 05:41 Baso % (Auto) 1.0 % (0-2) 03/09/20 05:41 Absolute Neuts (auto) 9.1 10^3/uL (1.7-8.2) H 03/09/20 05:41 Absolute Lymphs (auto) 1.6 10^3/uL (0.5-4.7) 03/09/20 05:41 Absolute Monos (auto) 0.3 10^3/uL (0.1-1.4) 03/09/20 05:41 Absolute Eos (auto) 0.0 10^3/uL (0.0-0.6) 03/09/20 05:41 Absolute Basos (auto) 0.1 10^3/uL (0.0-0.2) 03/09/20 05:41 Total Counted 100 03/07/20 12:35 Seg Neutrophils % 81.9 % (42-78) H 03/09/20 05:41 Seg Neuts % (Manual) 90 % (42-78) H 03/07/20 12:35 Lymphocytes % (Manual) 9 % (13-45) L 03/07/20 12:35 Monocytes % (Manual) 1 % (3-13) L 03/07/20 12:35 Eosinophils % (Manual) 0 % (0-6) 03/07/20 12:35 Basophils % (Manual) 0 % (0-2) 03/07/20 12:35 Abs Neuts (Manual) 19.4 10^3/uL (1.7-8.2) H 03/07/20 12:35 Abs Lymphs (Manual) 1.9 10^3/uL (0.5-4.7) 03/07/20 12:35 Abs Monocytes (Manual) 0.2 10^3/uL (0.1-1.4) 03/07/20 12:35 Absolute Eos (Manual) 0.0 10^3/uL (0.0-0.6) 03/07/20 12:35 Abs Basophils (Manual) 0.0 10^3/uL (0.0-0.2) 03/07/20 12:35 Platelet Comment ADEQUATE 03/07/20 12:35 Anisocytosis 1+ 03/07/20 12:35 PT 13.5 SEC (11.4-15.4) 03/07/20 12:35 INR 1.01 03/07/20 12:35 APTT 28.1 SEC (23.5-35.8) 03/07/20 12:35 Carbonic Acid 0.88 mmol/L (1.05-1.35) L 03/07/20 17:32 HCO3/H2CO3 Ratio 24:1 03/07/20 17:32 ABG pH 7.49 (7.35-7.45) H 03/07/20 17:32 ABG pCO2 29.1 mmHg (35-45) L 03/07/20 17:32 ABG pO2 68.7 mmHg (80-100) L 03/07/20 17:32 ABG HCO3 21.7 mmol/L (20-24) 03/07/20 17:32 ABG Total CO2 22.6 mmol/L (21-25) 03/07/20 17:32 ABG O2 Saturation 95.2 % (94-98) 03/07/20 17:32 ABG Base Excess -0.5 mmol/L 03/07/20 17:32 FiO2 ROOM AIR 03/07/20 17:32 Sodium 135.3 mmol/L (137-145) L 03/09/20 05:41 Potassium 4.1 mmol/L (3.6-5.0) 03/09/20 05:41 Chloride 104 mmol/L (98-107) 03/09/20 05:41 Carbon Dioxide 22 mmol/L (22-30) 03/09/20 05:41 Anion Gap 9 (5-19) 03/09/20 05:41 BUN 9 mg/dL (7-20) 03/09/20 05:41 Creatinine 0.51 mg/dL (0.52-1.25) L 03/09/20 05:41 Est GFR ( Amer) > 60 (>60) 03/09/20 05:41 Est GFR (MDRD) Non-Af > 60 (>60) 03/09/20 05:41 Glucose 273 mg/dL (75-110) H 03/09/20 05:41 POC Glucose 205 mg/dL (70-110) H 03/10/20 11:20 Hemoglobin A1c % 8.7 % (4.7-6.0) H 03/08/20 06:17 Lactic Acid 3.9 mmol/L (0.7-2.1) H 03/07/20 16:44 Calcium 8.5 mg/dL (8.4-10.2) 03/09/20 05:41 Magnesium 1.8 mg/dL (1.6-2.3) 03/09/20 05:41 Total Bilirubin 0.3 mg/dL (0.2-1.3) 03/09/20 05:41 Direct Bilirubin 0.3 mg/dL (0.0-0.4) 03/09/20 05:41 Neonat Total Bilirubin Not Reportable 03/09/20 05:41 Neonat Direct Bilirubin Not Reportable 03/09/20 05:41 Neonat Indirect Bili Not Reportable 03/09/20 05:41 AST 15 U/L (14-36) 03/09/20 05:41 ALT 17 U/L (<35) 03/09/20 05:41 Alkaline Phosphatase 92 U/L (38-126) 03/09/20 05:41 Ammonia 9.0 umol/L (9-33) 03/08/20 06:17 Troponin I 0.024 ng/mL 03/08/20 06:17 NT-Pro-B Natriuret Pep 1730 pg/mL (<125) H 03/08/20 06:17 Total Protein 6.3 g/dL (6.3-8.2) 03/09/20 05:41 Albumin 3.2 g/dL (3.5-5.0) L 03/09/20 05:41 Triglycerides 354 mg/dL (<150) H 03/08/20 06:17 Cholesterol 266.35 mg/dL (0-200) H 03/08/20 06:17 LDL Cholesterol Direct 202 mg/dL (<100) H 03/08/20 06:17 VLDL Cholesterol 70.8 mg/dL (10-31) H 03/08/20 06:17 HDL Cholesterol 39 mg/dL (>40) L 03/08/20 06:17 TSH 0.52 uIU/mL (0.47-4.68) 03/08/20 06:17 Urine Color YELLOW 03/10/20 04:00 Urine Appearance SLIGHTLY-CLOUDY 03/10/20 04:00 Urine pH 5.0 (5.0-9.0) 03/10/20 04:00 Ur Specific Samson 1.038 03/10/20 04:00 Urine Protein 100 mg/dL (NEGATIVE) H 03/10/20 04:00 Urine Glucose (UA) 50 mg/dL (NEGATIVE) H 03/10/20 04:00 Urine Ketones NEGATIVE mg/dL (NEGATIVE) 03/10/20 04:00 Urine Blood NEGATIVE (NEGATIVE) 03/10/20 04:00 Urine Nitrite NEGATIVE (NEGATIVE) 03/10/20 04:00 Urine Bilirubin NEGATIVE (NEGATIVE) 03/10/20 04:00 Urine Urobilinogen NEGATIVE mg/dL (<2.0) 03/10/20 04:00 Ur Leukocyte Esterase SMALL (NEGATIVE) H 03/10/20 04:00 Urine WBC (Auto) 27 /HPF 03/10/20 04:00 Urine RBC (Auto) 31 /HPF 03/10/20 04:00 U Hyaline Cast (Auto) 1 /LPF 03/08/20 06:05 Urine Bacteria (Auto) TRACE /HPF 03/08/20 18:09 Urine Red Cell Clumps Cancelled 03/07/20 13:20 Urine WBC Clumps Cancelled 03/07/20 13:20 Squamous Epi Cells Auto 1 /HPF 03/10/20 04:00 U Non-Squamous Epis Auto Cancelled 03/07/20 13:20 Calcium Carbonate Cryst Cancelled 03/07/20 13:20 Calcium Phosphate Cryst Cancelled 03/07/20 13:20 Calcium Oxalate Cr Auto Cancelled 03/07/20 13:20 Leucine Crystals Cancelled 03/07/20 13:20 Cystine Crystals Cancelled 03/07/20 13:20 Uric Acid Cryst (Auto) Cancelled 03/07/20 13:20 Triple Phos Cryst (Auto) Cancelled 03/07/20 13:20 Tyrosine Crystals Cancelled 03/07/20 13:20 Amorphous Sediment Auto Cancelled 03/07/20 13:20 Cellular Casts Cancelled 03/07/20 13:20 Epithelial Casts (Auto) Cancelled 03/07/20 13:20 Fatty Casts Cancelled 03/07/20 13:20 Granular Casts (Auto) Cancelled 03/07/20 13:20 Waxy Casts (Auto) Cancelled 03/07/20 13:20 Broad Casts Cancelled 03/07/20 13:20 RBC Casts (Auto) Cancelled 03/07/20 13:20 WBC Casts (Auto) Cancelled 03/07/20 13:20 Urine Mucus (Auto) FEW /LPF 03/10/20 04:00 U Trichomonas (Auto) Cancelled 03/07/20 13:20 Ur Yeast w Hyphae Cancelled 03/07/20 13:20 Urine Yeast (Budding) PRESENT /HPF 03/10/20 04:00 Urine Ascorbic Acid 40 (NEGATIVE) H 03/10/20 04:00 Time Trough Drawn 1130 03/10/20 11:30 Vancomycin Trough < 5.0 ug/mL (5.0-20.0) L 03/10/20 11:30 Urine Opiates Screen NEGATIVE 03/07/20 13:20 Urine Methadone Screen NEGATIVE 03/07/20 13:20 Ur Barbiturates Screen NEGATIVE 03/07/20 13:20 Ur Phencyclidine Scrn NEGATIVE 03/07/20 13:20 Ur Amphetamines Screen NEGATIVE 03/07/20 13:20 U Benzodiazepines Scrn NEGATIVE 03/07/20 13:20 Urine Cocaine Screen NEGATIVE 03/07/20 13:20 U Marijuana (THC) Screen NEGATIVE 03/07/20 13:20 03/07/20 03/07/20 03/07/20 12:35 16:44 22:05 Troponin I < 0.012 < 0.012 0.023 NT-Pro-B Natriuret Pep 03/08/20 06:17 Troponin I 0.024 NT-Pro-B Natriuret Pep 1730 H Impressions: Head MRI 03/07/20 00:00 IMPRESSION: NORMAL MRI OF THE BRAIN WITHOUT INTRAVENOUS GADOLINIUM CONTRAST. EVIDENCE OF ACUTE STROKE: NO. Chest X-Ray 03/07/20 12:07 IMPRESSION: NO ACUTE RADIOGRAPHIC FINDING IN THE CHEST. Head CT 03/07/20 12:07 IMPRESSION: NORMAL BRAIN CT WITHOUT CONTRAST. EVIDENCE OF ACUTE STROKE: NO. Head CTA 03/07/20 13:36 IMPRESSION: NO CTA EVIDENCE OF STENOSIS OR ANEURYSM OF THE [place]. Neck CTA 03/07/20 13:39 IMPRESSION: No aneurysm, stenosis, or dissection of the extracranial carotid and vertebral arteries. 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 This could be acute or chronic. Clinical correlation is needed. No hemodynamically significant stenosis on the left. Hepatomegaly. Plan Plan of Treatment: Patient is advised to follow-up with PCP in 1 week time and also with pain management. Time Spent: Greater than 30 Minutes Stroke Is this a Stroke Patient?: No Acute Heart Failure Is this a Heart Failure Patient?: No
[2020-03-10] MEDS ORDERED: PENICILLIN V POTASSIUM 500 MG TABLET PO SCH (14:00)
--- NOTE | 2020-03-10 14:02 | RADIOLOGY REPORT (SQ) ---
EXAM DESCRIPTION: CTA ABD AORTA AND EXTREMITY IMAGES COMPLETED DATE/TIME: 03/08/2020 3:41 pm03/09/2020 7:39 am REASON FOR STUDY: pain COMPARISON: None. TECHNIQUE: CT scan of the body and lower extremities performed with intravenous contrast using helic al scanning technique with dynamic intravenous contrast injection. Images reviewed with lung, soft ti ssue, and bone windows. Reconstructed coronal and sagittal MPR images reviewed. All images stored on PACS. Advanced 3D imaging as volume-rendering, MIPs, SSD performed? yes All CT scanners at this facility use dose modulation, iterative reconstruction, and/or weight based d osing when appropriate to reduce radiation dose to as low as reasonably achievable (ALARA). [facility]: Dose Right [facility]: CareDose [facility]: Dose Right [facility]: Teradose 4D [facility]: OKWave CONTRAST TYPE AND DOSE: contrast/concentration: Isovue 350.00 mmol/ml; Total Contrast Delivered: 100 .0 ml; Total Saline Delivered: 90.0 ml RENAL FUNCTION: BUN 8, creatinine 0.51 LIMITATIONS: None. FINDINGS: NON-CONTRASTED IMAGING: Post contrast images only. POST-CONTRAST IMAGING: AORTA AND VESSELS: No aneurysm or dissection. The celiac axis, SMA and renal arteries are patent. Th e left common and external iliac artery are patent the right common and external iliac artery are occ luded. ICD no significant collateral vessels. This could be a chronic occlusion but with no collatera lization identified acute occlusion cannot be excluded. There are some lumbar collaterals which provi de inflow into the internal iliac artery. The subsequently feel the profunda femoral on the right.. LUNG BASES: No significant findings. No nodules or infiltrates. LIVER: Incompletely visualized. No focal masses. There is hepatomegaly.. SPLEEN: Normal size. No focal lesions. PANCREAS: No masses. No significant calcifications. No adjacent inflammation or peripancreatic fluid collections. Pancreatic duct not dilated. GALLBLADDER: Surgically absent. ADRENAL GLANDS: Left adrenal adenoma.. RIGHT KIDNEY AND URETER: No mass, calculi or urinary tract obstruction. LEFT KIDNEY AND URETER: No mass, calculi or urinary tract obstruction. RETROPERITONEUM: No retroperitoneal adenopathy, hemorrhage or masses. BOWEL AND PERITONEAL CAVITY: No masses or inflammatory changes. No free fluid or peritoneal masses. APPENDIX: Normal. ABDOMINAL WALL: No masses. No hernias. BONY STRUCTURES: No significant or acute findings. 3-D IMAGING: Confirms the above findings. OTHER: Small left adnexal lesion most likely ovarian cyst. The bladder is decompressed by Morrow asim ter. LOWER EXTREMITIES: RIGHT LEG: FEMORAL ARTERIES: No occlusions or significant stenoses. POPLITEAL ARTERY: No aneurysm. No occlusions or significant stenoses. LEFT LEG: FEMORAL ARTERIES: No occlusions or significant stenoses. POPLITEAL ARTERY: No aneurysm. No occlusions or significant stenoses. TIBIOPERONEAL TRUNK AND RUNOFF VESSELS: Small infrapopliteal vessels. OTHER: No other significant finding. 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 This could be acute or chronic. Clinical correlation is needed. No hemodynamically significant stenosis on the left. Hepatomegaly. TECHNICAL DOCUMENTATION: JOB ID: [id number] Quality ID # [id number]: Final reports with documentation of one or more dose reduction techniques (e.g., Au tomated exposure control, adjustment of the mA and/or kV according to patient size, use of iterative reconstruction technique) 2010 [employer]- All Rights Reserved Reading location - IP/workstation name: [id number]
== END 2020-03-10 13:20 | disposition home or self-care (01) | DRG 98 ==
LOC: ER 10:35 → EH 15:39 → 3W 18:37
PROVIDERS: ADMIT Internal Medicine; ATTEND Internal Medicine
DX: G03.9 Meningitis, unspecified (principal); R65.10 Systemic inflammatory response syndrome (SIRS) of non-infectious origin without acute organ dysfunction; G93.40 Encephalopathy, unspecified; I74.5 Embolism and thrombosis of iliac artery; I10 Essential (primary) hypertension; E11.9 Type 2 diabetes mellitus without complications; F41.9 Anxiety disorder, unspecified; F32.9 Major depressive disorder, single episode, unspecified; F17.200 Nicotine dependence, unspecified, uncomplicated; E66.01 Morbid (severe) obesity due to excess calories; Z68.39 Body mass index [BMI] 39.0-39.9, adult; Z79.899 Other long term (current) drug therapy; Z79.4 Long term (current) use of insulin; Z86.711 Personal history of pulmonary embolism; Z89.511 Acquired absence of right leg below knee; Z88.3 Allergy status to other anti-infective agents; Z91.013 Allergy to seafood; Z79.01 Long term (current) use of anticoagulants; Z82.49 Family history of ischemic heart disease and other diseases of the circulatory system; Z83.3 Family history of diabetes mellitus
CPT/HCPCS: 36415; 70450; 70496; 70498; 70551; 71045; 74174; 75635; 80053; 80061; 80202; 80307; 81001; 82140; 82803; 82962; 83036; 83605; 83735; 83880; 84443; 84484; 85025; 85027; 85610; 85730; 87040; 87077; 87086; 87088; 87150; 93005; 93010; 96374; 96375; 99285; J0133; J0360; J0696; J1100; J1650; J1815; J2060; J2270; J3370; J3475; J3490; J7030; J7050; J7060; S0028